=== PATIENT | female | born 1935 | race Caucasian/White ===

== ENCOUNTER → 2023-08-31 08:29 | Outpatient (REF) | payer MEDICARE, OTHER, SELFPAY | LOC: RCS 08:29 | PROVIDERS: ATTENDING PHYSICIAN Internal Medicine Cardiovascular Disease; FAMILY PHYSICIAN Internal Medicine | DX: I48.0 Paroxysmal atrial fibrillation (principal); I10 Essential (primary) hypertension; Z86.79 Personal history of other diseases of the circulatory system; I34.0 Nonrheumatic mitral (valve) insufficiency; I45.10 Unspecified right bundle-branch block; R06.02 Shortness of breath | CPT/HCPCS: 71046; 93306 ==

== ENCOUNTER 2023-09-04 18:27 | Inpatient (IN) | payer MEDICARE, OTHER, SELFPAY ==
[2023-09-04] VITALS (7 sets, daily range): BP systolic 117–133; BP diastolic 74–87; BMI 23.3
[2023-09-04 14:46] LABS: % Basophils 0.9 % (0-2); % Eosinophils 0.9 % (0-6); % Immature Granulocytes 0.3 % (0-0.5); % Lymphocytes 17.7 % (20.5-51.1); % Monocytes 9.7 % (1.7-9.3); % Neutrophils 70.5 % (42.2-75.2); Absolute Basophils 0.1 10^3/uL (0-0.2); Absolute Eosinophils 0.1 10^3/uL (0-0.7); Absolute Monocytes 0.6 10^3/uL (0.1-0.6); Absolute Neutrophils 4.1 10^3/uL (1.4-6.5); Hematocrit 36.5 % (37.0-47.0); Mean Corp Hgb Conc. 32.9 g/dL (33.0-37.0); Mean Corpuscular Hgb 29.9 pg (27.0-31.0); Mean Corpuscular Volume 90.8 fL (81.0-99.0); Mean Platelet Volume 10.4 fL (7.4-10.4); Nucleated Red Blood Cells % 0 %; Platelet Count 192 10^3/uL (130-400); Red Blood Cell Count 4.02 10^6/uL (4.20-5.40); Red Cell Dist. Width 15.4 % (11.5-14.5); White Blood Cell Count 5.8 10^3/uL (4.8-10.8)
[2023-09-04 14:55] LABS: INR 2.08; PT 23.3 Sec (11.4-14.6)
[2023-09-04 16:27] LABS: ALT (SGPT) 27 U/L (0-35); AST (SGOT) 34 U/L (14-36); Albumin 3.6 g/dl (3.5-5.0); Alkaline Phosphatase 111 U/L (38-126); Blood Urea Nitrogen 18 mg/dl (7-17); Calcium 8.7 mg/dl (8.4-10.2); Carbon Dioxide 31 mmol/L (22-30); Chloride 104 mmol/L (98-107); Glucose 120 mg/dl (70-99); Magnesium 1.7 mg/dl (1.6-2.3); Potassium 3.3 mmol/L (3.5-5.1); Sodium 138 mmol/L (135-145); Total Bilirubin 0.8 mg/dl (0.2-1.3); Total Protein 6.2 g/dl (6.3-8.2); eGFR > 60.00
[2023-09-04 16:29] LABS: NT-proBNP 2280 pg/ml; Troponin I 0.015 ng/ml
--- NOTE | 2023-09-04 16:36 | ED.GENMED ---
History of Present Illness
General
Chief Complaint: Swelling
Source: patient and family
Time Seen by Provider: 09/04/23 13:42
Travel History
Have you had any contact with someone who has COVID-19?: No
Do you have any symptoms of coronavirus? Fever > 100 degrees, chills, cough, shortness of breath, sore throat, loss of taste or smell, muscle aches, or headache?: No
History of Present Illness
History of Present Illness:
88-year-old female with history of A-fib, COPD, CHF was sent by cardiology for suspected congestive heart failure. She went back in A-fib recently and has been in it persistently. She was taken off her amiodarone and put on metoprolol. She did
just start Lasix yesterday. Patient states her shortness of breath with exertion has progressed and she is extremely short of breath with just 3-4 steps. No fevers. No chest pain.
Past History
Past History
ED Past Medical History: Arrthythmia (Atrial fibrillation), CAD, Cancer, CHF, COPD, HTN and Hypercholesterolemia
ED Past Surgical History: Cardiac and Gynecological
Social History
Tobacco: Non-smoker
Living: with family
Employment: Retired
Phy Exam
Physical Exam
Physical Exam:
CONSTITUTIONAL Patient alert and oriented to person, place and time. Well-appearing. Vital signs reviewed.
HEAD atraumatic, normocephalic.
EYES eyelids normal to inspection, Pupils equally round and reactive to light, Extraocular muscles intact, Conjunctiva normal, Sclera normal.
NECK normal range of motion, Trachea midline, no jugular venous distention.
RESPIRATORY CHEST No respiratory distress noted, Chest expansion equal, diminished at bilateral bases
CARDIOVASCULAR irregularly irregular.
ABDOMEN abdomen nontender, Bowel sounds normal. No distention.
BACK normal inspection, no obvious deformities
UPPER EXTREMITY range of motion normal, Motor strength normal, no cyanosis, no edema.
LOWER EXTREMITY range of motion normal, Motor strength normal, no cyanosis, bilateral edema.
NEURO Speech normal, No focal motor deficits, [place] coma scale 15, Memory normal, Cranial Nerves intact to screening exam.
SKIN skin warm, dry, and normal in color.
Scores
Heart Failure Risk
Heart Failure Risk Score: Yes
History of Stroke or TIA: No
History of intubation for respiratory distress: No
Heart rate on ED arrival >/= 110: No
SaO2 <90% on arrival on room air: No
HR >/=110 during 3min walk test (or too ill to perform test): Yes
ECG has acute ischemic changes: No
Urea >/=12mmol/L (BUN 33.6mg/dL): No
Serum CO2>/=35mmol/L: No
Troponin I or T elevated to AL Level (0.4mg/dL): No
NT-proBNP >/=5,000ng/L (5,000pg/ml): No
HF Risk Score: 2
Admission Status: MEDIUM RISK 9.2% Consider observation or discharge to home with homecare & f/u visit to PCP/Paper Machine Operator, or SNF for treatment
Course
Orders/Labs/Results
Orders:
Orders
09/04/23 12:43
Electrocardiogram (*1) Urgent
Reason for Study: Shortness of Breath
EKG- Treatment ONCE
09/04/23 13:43
CR Chest - 2 Views Urgent
Comment:
Reason For Exam: leg swelling
09/04/23 14:40
Complete Blood Count/With Diff Urgent
PT/INR [Prothrombin Time] Urgent
09/04/23 Dinner
Cholesterol Lowering
At Your Request: Limited Participation
Fluid Restriction: 1440 mL/day (48 oz)
Cholesterol Lowering: Sodium, 2 Gram
09/04/23 15:59
Comprehensive Metabolic Panel Urgent
Magnesium Urgent
NT-proBNP Urgent
Troponin I Urgent
Comment: BNP
09/04/23 16:35
Furosemide [Lasix] 40 mg IV NOW STA
Potassium Chloride 10% Elixir [KCl Elixir] 40 meq PO NOW STA
09/04/23 17:34
[facility] CONSULT Routine
Consulting Provider: Mason Fuentes
Was physician already notified: Yes
Reason for Consult/Procedure: large left plueral effusion
Acknowledgement that appropriate orders are entered: Yes
09/04/23 17:56
Admit/Transfer Patient As Directed
Co-Sign Provider:
Level of Care: Inpatient admission
Assign to:: Telemetry
Physician / Group: velma bell
Diagnosis: large left sided plueral effusion , hypokalemia
Reason for Telemetry: Arrhythmia
Date to Stop Telemetry: 09/07/23
Time to Stop Telemetry: 11:00
Reason for Hospitalization: large left sided plueral effusion , hypokalemia
Expected length of stay greater than two midnights?: Yes
ELOS- Estimated Length of Stay in days: 4
I certify the patient meets the requirements for IP care: Yes
09/04/23 17:57
Code Status As Directed
Resuscitation Status: Do not resuscitate
Reached after discussion with pt or family/Healthcare POA: Yes
Based on pt advanced directive or healthcare POA form: Yes
Decision communicated with: per pt with daugther present
09/04/23 17:58
DNR Bracelet Application ONCE
09/04/23 18:08
CARDIOLOGY CONSULT Routine
Consulting Provider: Jose Stallworth
Was physician already notified: Yes
Reason for consult: lg left plueral eff , parox afib stopped amiodarone
09/04/23 19:19
Acetaminophen [Tylenol] 650 mg PO Q4HPRN PRN
Bisacodyl [Dulcolax] 10 mg RECTAL [id number] PRN
Docusate W/Senna [Senokot-S] 1 tablet PO BIDPRN PRN
Polyethylene Glycol Powder [Miralax] 17 grams PO DAILYPRN PRN
09/04/23 19:19
VTE Contraindication Routine
VTE Mechanical Device Contraindication: Medical Contraindication
Pharmocologic Contraindication: Medical Contraindication
Comment: pt o eliquis
Acid Fast Culture & Smear Routine
NELI Source: Pleural Fluid
Specimen Description:
Comment: post procedure
Body Fluid Amylase Routine
Fluid Source: Pleural
Body Fluid Cell Count Routine
What is the Body Fluid: pleural fluid
Comment: post procedure
Body Fluid Glucose Routine
Fluid Source: Pleural
Body Fluid LDH Routine
Fluid Source: Pleural
Body Fluid Protein Routine
Fluid Source: Pleural
Body Fluid Triglycerides Routine
Fluid Source: Pleural
Body Fluid pH Routine
Fluid Source: Pleural
Fluid Culture with Gram Stain Routine
NELI Source: Pleural Fluid
Specimen Description:
Comment: post procedure
Fungus Culture Routine
NELI Source: Pleural Fluid
Specimen Description:
Fungus Smear Routine
NELI Source: Pleural Fluid
Specimen Description:
Gram Stain Routine
NELI Source: Pleural Fluid
Specimen Description:
Comment: POST PROCEDURE
Activity As Directed
Activity Level: With Assistance
Comment: uses rollator at baseline
Intake/ Output As Directed
Frequency: Per unit guidelines
Vital Signs As Directed
Frequency: Per unit guidelines
Weight As Directed
Frequency: Daily
[facility] Cytology Routine
Source: Pleural Fluid, Left
Clinical Impression: pleural effusion hx breast ca 2009
Pulse Ox/spot Check [RESP] Routine
Quantity: 1
Ot Eval And Treat Routine
Pt Eval And Treat Routine
Treatment: uses rollator at baseline
Activity Level: With Assistance
09/04/23 20:00
Apixaban [Eliquis] 5 mg PO BID
Calcium Carbonate/Vitamin D3 [Oscal 500 + D] 500 mg PO BID
Potassium Chloride [KCl] 10 meq PO BID
09/04/23 22:00
Atorvastatin [Lipitor] 40 mg PO HS
Cholecalciferol (Vitamin D3) [VITAMIN D3 (cholecalciferol)] 25 mcg PO HS
09/05/23 06:00
Basic Metabolic Panel IN AM
Complete Blood Count/With Diff IN AM
09/05/23 08:00
Furosemide [Lasix] 40 mg IV DAILY
Lisinopril [Zestril] 20 mg PO DAILY
Metoprolol Xl [Toprol Xl] 25 mg PO DAILY
Multivitamin [Theragran] 1 tablet PO DAILY
Pantoprazole [Protonix] 40 mg PO DAILY
Tiotropium [place] 2.5 Mcg [Spiriva Respimat 2.5 Mcg] 2 puff INH R DAILY
09/06/23 06:00
Basic Metabolic Panel IN AM
Complete Blood Count/With Diff IN AM
09/07/23 06:00
Basic Metabolic Panel IN AM
Complete Blood Count/With Diff IN AM
09/07/23 11:00
DC Protocol for Telemetry ONCE
Abnormal Lab Results
09/04/23 09/04/23
14:40 15:59
RBC 4.02 L 10^6/uL
(4.20-5.40)
Hct 36.5 L %
(37.0-47.0)
MCHC 32.9 L g/dL
(33.0-37.0)
RDW 15.4 H %
(11.5-14.5)
Absolute Lymphs (auto) 1.0 L 10^3/uL
(1.2-3.4)
Lymphocytes % 17.7 L %
(20.5-51.1)
Monocytes % 9.7 H %
(1.7-9.3)
PT 23.3 H Sec
(11.4-14.6)
Potassium 3.3 L mmol/L
(3.5-5.1)
Carbon Dioxide 31 H mmol/L
(22-30)
BUN 18 H mg/dl
(7-17)
Glucose 120 H mg/dl
(70-99)
Total Protein 6.2 L g/dl
(6.3-8.2)
09/04/23 14:40
09/04/23 15:59
Vital Signs
Initial and Last Documented VS:
Initial Vital Signs
Temp Pulse Resp BP Pulse Ox
98.2 F 88 18 123/81 99
09/04/23 12:41 09/04/23 12:41 09/04/23 12:41 09/04/23 12:41 09/04/23 12:41
Last Documented Vital Signs
Temp Pulse Resp BP Pulse Ox
98.2 F 102 18 131/75 96
09/04/23 19:28 09/04/23 19:28 09/04/23 19:28 09/04/23 19:28 09/04/23 19:28
MDM/Problems Addressed
MDM/Problems Addressed:
Large acute pleural effusion, congestive heart failure, lower extremity edema, hypokalemia
*Radiology
Radiology exam reviewed: preliminary read by ED provider (Effusion)
*Pulse Oximetry
Patient hypoxic: no
*EKG
Interpreted by ED Provider?: Yes
Interpretation: abnormal
Rate: normal
Rhythm: a-fib
QRS Pattern: right bundle branch block
Ischemia: non-specific ST changes
*Air Conditioning Service Technician Interpretation
Rate: normal
Interpretation: abnormal
Rhythm: a-fib
*Critical Care Note
Total Time (30-74mins, 75-104mins- exclusive of procedures): 30 minutes
Data Reviewed
Source: patient
Further Testing Considered But Not Given:
Considered PE study but suspect effusion and CHF as etiology.
ED Attending Note
-
Portions of this chart may have been created with voice recognition software.� Occasional wrong word or��sound alike� substitutions may have occurred due to the inherent limitations of voice recognition software.
Discharge Plan
Departure
Patient Disposition: Admit
Date of Disposition: 09/04/23
Time of Disposition: 16:36
Admit to: Telemetry
Presentation/result/management discussed w/ accepting MD/DO: Hospitalist
Discharge Problem:
Congestive heart failure (CHF), Pleural effusion, Hypokalemia
Interventions
Interventions:
*Risk Screen - Suicide Last Done: 09/04/23 12:41
*General Assessment Last Done: 09/04/23 12:41
*Neglect/Abuse Screening Last Done: 09/04/23 12:41
ED- Fall Risk Assessment Last Done: 09/04/23 19:13
*ED COVID-19 Vaccine History Last Done: 09/04/23 12:41
*Nursing Disposition Last Done: 09/04/23 19:13
ED- Cardiac Assessment Last Done: 09/04/23 14:05
ED- Pulmonary Assessment Last Done: 09/04/23 14:05
ED-Skin Assessment Last Done: 09/04/23 14:05
Discharge Date and Time
Discharge Date/Time: 09/04/23 19:15
[2023-09-04] MEDS: LASIX 40 MG IV (17:13)
[2023-09-04] MEDS: KCL ELIXIR 40 MEQ PO (17:13)
--- NOTE | 2023-09-04 17:41 | HPS.HSE ---
Addendum entered and electronically signed by Hardeep Ernst MD 09/04/23 18:27:
SOB x 2 weeks
Hx of left sided breast cancer in 2009, s/p mastectomy, XRT and chemo. As per pt and dgt, DEWAYNE
Pt seen independently and agree with TRUCK CATERER
Lungs decreased BS left base
CV reg with freq extrasystole
Ext trace LE edema, left arm edema more pronounced (apparently is chronic)
Imp:left sided pleural effusion of unclear etio.
Hx of breast cancer and XRT, raise concern for alternative dx not related to cardiac
P:thoracentesis
pending results, consider consult with pulm
Original Note:
Family Physician
-
Family Physician: Bowen Townsend
Chief Complaint
-
Progressive shortness of breath over the past 2 weeks
History of Present Illness
88-year-old female who lives at home with her daughter who complains of progressive shortness of breath over the past 2 weeks with some leg edema. She saw her diver helper approximately August 12 was in normal sinus rhythm and was advised to stop her
amiodarone. She did however continue her Eliquis. In the ER today she is back in normal sinus rhythm to paroxysmal A-fib. She denies current headache, chest pain, palpitations, cough, fever, chills, abdominal pain, nausea, vomiting, diarrhea,
black or bloody stools, urinary symptoms. She is chronic ambulatory dysfunction uses a rollator. She has history of mastectomy left-sided secondary to breast cancer 2009 requiring radiation and chemo and has chronic lymphadenopathy in that arm.
She was a former smoker 30 years 1 pack a day quit approximately 30 years ago, CAD/CABG times 07/1997, HTN, HLD, CHF diastolic, cardiac murmur.
Medical History
Past Medical History
Past Medical History: Reports Other
Additional Past Medical History:
Left-sided breast cancer requiring mastectomy, radiation therapy 2009
Chronic left arm lymphedema secondary to mastectomy
COPD
HTN
HLD
Chronic CHF�diastolic
Former smoker 30-year 1 pack a day quit approximate 30 years ago
5 para 5
Past Surgical History: Reports Other
Additional Past Surgical History:
Left-sided breast cancer requiring mastectomy, radiation therapy 2009
CABG x 3 vessel 1997
Cataract extraction bilateral
Social History
Tobacco: Former Smoker (30 pack a day quit 30 years ago)
Alcohol: None
Drug: None
Personal:
Living: With Family (Daughter)
Employment: Retired
Family History
Family History: Not pertinent
Allergies / Home Medications
Allergies reflects when Allergies were last updated in [facility].
Home Medications with original date entered in [facility]
Allergy/Medication List:
Allergies
Allergy/AdvReac Type Severity Reaction Status Date / Time
iron [Iron] Allergy Rash Verified 03/26/22 20:24
Home Medications
amlodipine 5 mg tablet 5 mg PO HS 09/04/23
apixaban 5 mg tablet (Eliquis) 5 mg PO BID 09/04/23
atorvastatin 40 mg tablet 40 mg PO HS 09/04/23
calcium carbonate 600 mg-vitamin D3 10 mcg (400 unit) tablet (Calcium 600 + D(3)) 1 tab PO BID 09/04/23
cholecalciferol (vitamin D3) 25 mcg (1,000 unit) tablet 25 mcg PO HS 09/04/23
furosemide 20 mg tablet 20 mg PO DAILY 09/04/23
lisinopril 20 mg tablet 20 mg PO DAILY 09/04/23
metoprolol succinate 25 mg tablet,extended release 24 hr 25 mg PO DAILY 09/04/23
multivitamin with minerals-folic acid 0.4 mg tablet (One-A-Day Women's 50 Plus) 1 tab PO DAILY 09/04/23
potassium chloride 10 mEq tablet,extended release 10 meq PO BID 09/04/23
rabeprazole 20 mg tablet,delayed release 20 mg PO DAILY 09/04/23
tiotropium bromide 18 mcg capsule with inhalation device (Spiriva with HandiHaler) 1 cap inhalation R DAILY 09/04/23
Review of Systems
-
History Source: Patient and Family (Daughter at bedside)
A 12 point ROS was completed and negative except as noted: Yes
Constitutional: Reports Fatigue; Denies Fever or Chills
EENT: Denies Sore Throat or Runny Nose
Respiratory: Reports Cough and Trouble Breathing (CHOPRA)
Cardiac: Denies Chest Pain, Diaphoresis, Palpitations or Syncope
Abdomen/GI: Denies Abdominal Pain, Nausea, Vomiting, Diarrhea, Constipated, Bloody Stools, Black Stools or Anorexia
: Denies Dysuria, Frequency, Flank Pain, Incontinence, Difficulty Voiding, Urgency, Bleeding or Dark Urine
Musculoskeletal: Reports Edema (Trace bilateral ankles); Denies Joint Pain
Skin: Denies Itching or Rash
Neurological: Denies Dizzy, Headache or Weakness
Endocrine: Reports No Symptoms
Hematologic/Lymphatic: Reports No Symptoms
Psych: Reports Calm
Physical Exam
Vital Signs
Vital Signs
Temp Pulse Resp BP Pulse Ox
98.2 F 88 28 133/78 94
09/04/23 12:41 09/04/23 17:16 09/04/23 17:16 09/04/23 17:16 09/04/23 17:16
Physical Exam
General: Comfortable and Conversant; No Pain, Fever or Chills
HEENT: NormoCephalic, Anicteric, Moist mucous membranes, PERRLA, [place] Conjunctivae and No Ptosis
Respiratory: Other (Diminished throughout left lung field)
Cardiac: S1/S2, Irregular Rhythm (NSR to paroxysmal A-fib on monitor at bedside), Murmur (2/6 systolic murmur) and Peripheral Edema (Trace bilateral ankles); No Rub or Gallop
GI: Soft, Non Tender, Non Distended, Normal Bowel Sounds and No Hepatosplenomegaly
Rectal: Deferred by Provider
Genito-urinary: Deferred by me
Musculoskeletal: No Clubbing, No Cyanosis and No Edema
Skin: Warm and Dry; No Rash
Neuro: AO x 3, No Motor Deficits, Nonfocal/grossly intact, Cranial Nerves Intact and No Sensory Deficits; No Slurred Speech, Facial Droop or Tremors
Psych: Calm
Laboratory Results
-
09/04/23 14:40
09/04/23 15:59
Laboratory Results
PT 23.3 Sec (11.4-14.6) H 09/04/23 14:40
INR 2.08 09/04/23 14:40
Total Bilirubin 0.8 mg/dl (0.2-1.3) 09/04/23 15:59
AST 34 U/L (14-36) 09/04/23 15:59
ALT 27 U/L (0-35) 09/04/23 15:59
Alkaline Phosphatase 111 U/L (38-126) 09/04/23 15:59
Troponin I 0.015 ng/ml 09/04/23 15:59
Impression/Plan
-
Impression/plan:
Admit to telemetry
Large left-sided pleural effusion likely 2 prior left-sided radiation 2009 from breast cancer/mastectomy
-Consult IR for thoracentesis with fluid analysis
-Monitor pulse ox
-PT/OT/case management consult
#Hx left-sided breast cancer with mastectomy/radiation/chronic left arm lymphedema 2009
-No IVs left side arm
#Hypokalemia likely from diuretic/pleural effusion
K3.3, KCl 40 mEq given in ER
Follow BMP
#Paroxysmal A-fib
-On monitor NSR to paroxysmal A-fib
-Continue Eliquis 5 mg p.o. twice daily
-Amiodarone was stopped approximately August 12 by cardiology due to NSR but patiently currently having episodes of paroxysmal A-fib
-Continue metoprolol
-Consult [facility] cardiology for resumption of possible amiodarone
#COPD�no acute exacerbation
Continue Spiriva
#Chronic CHF
I/O, daily weights
Continue Lasix 20 mg daily, potassium 10 mEq twice daily
2D echo 08/31/2023: EF 50-55%, mild LVH, no wall abnormalities, diastolic function indeterminate, enlarged right ventricle, severely dilated atria ,severe MR,
severe TR pulm arterial pressure 50-55 mm/hg
#Severe MR/severe TR by echo
#HTN�benign
-Continue lisinopril 20 mg daily, metoprolol succinate 25 mg daily, amlodipine 5 mg at bedtime with hold parameters
HLD
-Continue atorvastatin 40 mg at bedtime
#GERD
-Continue Aciphex or equivalent
#Former smoker 30-year 1 pack a day quit 30 years ago
#Chronic ambulatory dysfunction uses rollator at baseline
PT/OT/case management consult
DVT prophylaxis
Continue REGULATOR PIN INSERTER Eliquis
DNR per patient with daughter present at bedside
[2023-09-04] MEDS: KCL 10 MEQ PO (20:10)
[2023-09-04] MEDS: OSCAL 500 + D 500 MG PO (20:10)
[2023-09-04] MEDS: ELIQUIS 5 MG PO (20:10)
--- NOTE | 2023-09-04 20:20 | PTCARENOTE ---
pt admitted to 4E. AAOx3, general weakness. BAD R[place] BAND. Afib w/ BBB in the monitor. +1 Lt arm and BLLE edema. Lung sounds are shallow diminished and fine crackles at the bases. SaO2 94-96% RA. Pt ambulates to the bathroom, occasional stress incontinence.
Pt appears comfortable in bed and call talley within reach.
[2023-09-04] MEDS: LIPITOR 40 MG PO (21:01)
[2023-09-04] MEDS: VITAMIN D3 (cholecalciferol) 25 MCG PO (21:01)
[2023-09-05] VITALS (9 sets, daily range): BP systolic 83–134; BP diastolic 58–87
[2023-09-05 08:31] LABS: % Eosinophils 2.3 % (0-6); % Immature Granulocytes 0.5 % (0-0.5); % Lymphocytes 28.1 % (20.5-51.1); % Monocytes 15.1 % (1.7-9.3); Absolute Basophils 0.1 10^3/uL (0-0.2); Absolute Eosinophils 0.1 10^3/uL (0-0.7); Absolute Lymphocytes 1.8 10^3/uL (1.2-3.4); Absolute Monocytes 0.9 10^3/uL (0.1-0.6); Absolute Neutrophils 3.3 10^3/uL (1.4-6.5); Hematocrit 34.4 % (37.0-47.0); Hemoglobin 11.1 g/dL (12.0-16.0); Mean Corp Hgb Conc. 32.3 g/dL (33.0-37.0); Mean Corpuscular Hgb 29.6 pg (27.0-31.0); Mean Corpuscular Volume 91.7 fL (81.0-99.0); Mean Platelet Volume 10.3 fL (7.4-10.4); Nucleated Red Blood Cells % 0 %; Platelet Count 190 10^3/uL (130-400); Red Blood Cell Count 3.75 10^6/uL (4.20-5.40); Red Cell Dist. Width 15.4 % (11.5-14.5); White Blood Cell Count 6.2 10^3/uL (4.8-10.8)
[2023-09-05] MEDS: SPIRIVA RESPIMAT 2.5 MCG 2 PUFF INH (08:37)
[2023-09-05 08:40] LABS: Blood Urea Nitrogen 19 mg/dl (7-17); Carbon Dioxide 31 mmol/L (22-30); Chloride 104 mmol/L (98-107); Estimated Creatinine Clearance 34 ml/min; Glucose 108 mg/dl (70-99); Potassium 4.7 mmol/L (3.5-5.1); Sodium 140 mmol/L (135-145); eGFR 48.63
[2023-09-05] MEDS: LASIX 40 MG IV (10:02)
[2023-09-05] MEDS: THERAGRAN 1 TABLET PO (10:02)
[2023-09-05] MEDS: FLUSH (NSS) 2 FLUSH IV (10:02)
[2023-09-05] MEDS: ELIQUIS 5 MG PO ×2 (10:03→21:00)
[2023-09-05] MEDS: ZESTRIL 20 MG PO (10:03)
[2023-09-05] MEDS: OSCAL 500 + D 500 MG PO ×2 (10:03→21:00)
[2023-09-05] MEDS: TOPROL XL 25 MG PO (10:03)
[2023-09-05] MEDS: PROTONIX 40 MG PO (10:03)
[2023-09-05] MEDS: KCL 10 MEQ PO ×2 (10:03→21:00)
--- NOTE | 2023-09-05 11:41 | CON.CAR ---
Addendum entered and electronically signed by Mason Kelly MD 09/05/23 12:52:
88-year-old woman admitted with HFpEF in the setting of persistent atrial fibrillation with severe mitral regurgitation.She presented for routine follow-up August 09 and was in recurrent atrial fibrillation at that time. She was largely
asymptomatic. We discussed switching to a strategy of rate control versus rhythm control with cardioversion. Eventually, she elected for rate control and amiodarone was discontinued. She now presents with increasing edema shortness of breath and
weight gain and is found to be in atrial fibrillation. Previously had been considered for MitraClip but mitral regurgitation had improved. She was felt to be technically poor candidate for MitraClip remotely.
Allergies are to iron
Outpatient medications amlodipine 5 mg at bedtime, apixaban 5 mg twice daily, atorvastatin 40 mg a day, furosemide 20 mg daily, metoprolol ER 25 mg a day which was new, potassium 10 mEq twice daily, rabeprazole 20 mg a day, Spiriva
PMH: CAD/history of CABG, PAF on amiodarone, now persistent, hypertension, inferolateral myocardial infarction 1997, HFpEF, mild to moderate MR by echo 2021, 4.4 cm aneurysm of the abdominal aorta, hypercholesterolemia type 2 diabetes right bundle
branch block, COPD, left breast cancer treated with radiation and chemo paralyzed hemidiaphragm
PSH: Left mastectomy, CABG
FH: Noncontributory
SH: Ex-smoker, no alcohol, , lives with daughter and son-in-law who is Don Nisreen
ROS negative except as above
134/73, pulse 99, respiratory rate 18, afebrile, intake and output -0.6 L, weight is 65.5 kg intake and output incomplete, no acute distress, head neck exam unremarkable, diminished breath sounds left base, irregular rate and rhythm with MR murmur,
abdomen benign, extremities with 2+ edema, neuro nonfocal, pulses palpable
Chest x-ray: Pleural effusion left greater than right
ECG atrial fibrillation right bundle branch block nonspecific ST and T wave changes, cannot exclude lateral [place] hemoglobin 11.1, platelets 190, BUN and creatinine 19 and 1.1, potassium 4.7, proBNP 2280, troponin 0.015
Echo 08/31/1943 mild LVH, EF 50-55%, dilated RV, severely dilated atria, MAC, severe mitral regurgitation, trace aortic regurgitation with aortic sclerosis, severe tricuspid regurgitation, pulmonary artery systolic pressure 50-55 mmHg
Impression:
Persistent atrial fibrillation
Acute on chronic HFpEF
Severe mitral regurgitation
Severe tricuspid regurgitation with moderate pulm hypertension
CAD/history of CABG 1997
Abdominal aortic aneurysm 4.4 cm 2021
Hypercholesterolemia
Hypertension
Type 2 diabetes
COPD
Right bundle branch block
History of left breast cancer treated with mastectomy, chemoradiation
Paralyzed left hemidiaphragm
Plan:
She presents with persistent atrial fibrillation and decompensated heart failure with severe MR and preserved systolic LV function. There is right heart enlargement and severe tricuspid regurgitation with pulmonary hypertension.
This is after switching from a strategy of rhythm control on amiodarone to rate control when she had breakthrough A-fib on amiodarone.
Proceed with thoracentesis as planned. Await chemistries and cytology, though presumably fluid is transudative despite the fact that it is predominantly left-sided.
Will need to optimize GDMT for HFpEF. In the absence of history of UTIs we will start an SGLT2 antagonist.
Furosemide was recently started - we will need to diurese with IV furosemide and convert to oral.
Since she has done poorly in A-fib, would restart amiodarone with intent to proceed with cardioversion probably on September 06. As outpatient will reassess tomorrow and determine if we need to reevaluate for MitraClip
Original Note:
Consultation
Consultation Request
Date/Time Consultation Requested: 09/04/23 at 1808
Date/Time Consultation Performed: 09/05/23 at 1112
Requesting Provider: Dr. Ernst
Performing Provider: Dr. CHARLA Kelly
Reason for Consultation: CHF, Afib
Medical History
-
History of Present Illness:
Patient came to [facility] yesterday with increased SOB and was admitted with acute HF so cardiology has been consulted. Patient lives with her daughter and son in law, her son in law is Dr. Bowen Townsend. Patient has a h/o CABG in 1997. Then in about
2018 she had CV and amiodarone loading for Afib. She had an episode of orthostasis and syncope once she was discharged to home in 2019. Since then she was doing well on Eliquis and amiodarone 100 mg daily. Then at her Dr. Kelly office visit 08/08/23
she was noted to be in Afib, but denied palpitations, chest pain or SOB. Dr. Kelly and patient and her daughter discussed options of rate control vs rhythm control. Patient and her family took some time to think about their options and decided on
rate control so her amiodarone was stopped and she was started on Toprol XL 25 mg daily. Patient seemed to be doing well until about 2 weeks ago when she started with CHOPRA and LE edema. No orthopnea or PND. Patient was started on Lasix 20 mg PO dialy
by her PCP, but with ongoing CHOPRA she was brought to [facility] last night. She reports symptomatic improvement with Lasix 40 mg IV daily.
PMH:
Severe MR/TR by echo 08/31/23
Paroxysmal Afib
s/p CV and addition of amiodarone approx 2018
Chronic amiodarone therapy, just stopped at office visit 08/08/23
Chronic Eliquis OAC
CAD s/p CABG with AZAR to LAD, SCG to PDA, SVG to OM, SVG to distal OM and DVG to Diag 1997
HTN
h/o orthostasis and syncope 2018
Hyperlipidemia
RBBB
DM 2
Paralyzed left hemidiaphragm
Past Medical History
Past Medical History: Other (in HPI)
Past Surgical History: Cardiac (CABG 1997) and Gynecological (left mastectomy)
Social History
Tobacco: Former Smoker
Alcohol: None
Living: With Family (she lives with her daughter and son in law)
Family History
Family History: CAD
Allergies / Home Medications
Allergy/AdvReac Type Severity Reaction Status Date / Time
iron [Iron] Allergy Rash Verified 03/26/22 20:24
�Medication �Instructions �Recorded �Confirmed �Type
amlodipine 5 mg tablet 5 mg PO HS 09/04/23 09/04/23 History
apixaban 5 mg tablet (Eliquis) 5 mg PO BID 09/04/23 09/04/23 History
atorvastatin 40 mg tablet 40 mg PO HS 09/04/23 09/04/23 History
calcium carbonate 600 mg-vitamin 1 tab PO BID 09/04/23 09/04/23 History
D3 10 mcg (400 unit) tablet
(Calcium 600 + D(3))
cholecalciferol (vitamin D3) 25 25 mcg PO HS 09/04/23 09/04/23 History
mcg (1,000 unit) tablet
furosemide 20 mg tablet 20 mg PO DAILY 09/04/23 09/04/23 History
lisinopril 20 mg tablet 20 mg PO DAILY 09/04/23 09/04/23 History
metoprolol succinate 25 mg 25 mg PO DAILY 09/04/23 09/04/23 History
tablet,extended release 24 hr
multivitamin with minerals-folic 1 tab PO DAILY 09/04/23 09/04/23 History
acid 0.4 mg tablet (One-A-Day
Women's 50 Plus)
potassium chloride 10 mEq 10 meq PO BID 09/04/23 09/04/23 History
tablet,extended release
rabeprazole 20 mg tablet,delayed 20 mg PO DAILY 09/04/23 09/04/23 History
release
tiotropium bromide 18 mcg capsule 1 cap inhalation R DAILY 09/04/23 09/04/23 History
with inhalation device (Spiriva
with HandiHaler)
Review of Systems
-
History Source: Patient and Family (daughter, Kamini, by phone)
All other systems: Negative unless noted
Physical Exam
Vital Signs
Temp Pulse Resp BP Pulse Ox
98.3 F 99 18 134/73 93
09/05/23 08:22 09/05/23 08:22 09/05/23 08:22 09/05/23 10:03 09/05/23 08:22
GEN: NAD. AAOx3
HEENT: EOMI, MMM, wearing glasses
LUNGS: Decreased BS left worse than right base. No wheeze
CV: Reg, S1/S2, 1/6 basal systolic murmur
ABD: soft, BS+, NT/ND
EXT: +1 B/L LE edema. No clubbing, cyanosis or lesions B/L
NEURO: Gross non-focal
SKIN: Warm, dry and pink. No rash
Lab Results
09/05/23 07:59
09/05/23 07:59
Troponin I 0.015 ng/ml 09/04/23 15:59
Uic-S-Zzubmspjstx Pept 2280 pg/ml 09/04/23 15:59
Impression / Plan
-
PCP: Dr. Townsend
Cardiology: Dr. CHARLA Kelly
Impression:
Acute HFpEF
Severe MR/TR
Moderate left and small right pleural effusion
Paroxysmal Afib
s/p CV and addition of amiodarone approx 2018
Chronic amiodarone therapy, just stopped at office visit 08/08/23
Chronic Eliquis OAC
CAD s/p CABG with AZAR to LAD, SCG to PDA, SVG to OM, SVG to distal OM and DVG to Diag 1997
HTN
h/o orthostasis and syncope 2018
Hyperlipidemia
RBBB
DM 2
Paralyzed left hemidiaphragm
Echo 08/31/23: EF 50-55%, mild conc LVH, enlarged RV size, sev MR, aortic sclerosis without stenosis, sev TR with PAP 50-55 mmHg, no pericardial effusion
Plan:
-Patient came to [facility] yesterday with increased SOB and was admitted with acute HF so cardiology has been consulted. Patient lives with her daughter and son in law, her son in law is Dr. Bowen Townsend. Patient has a h/o CABG in 1997. Then in about
2018 she had CV and amiodarone loading for Afib. She had an episode of orthostasis and syncope once she was discharged to home in 2019. Since then she was doing well on Eliquis and amiodarone 100 mg daily. Then at her Dr. Kelly office visit 08/08/23
she was noted to be in Afib, but denied palpitations, chest pain or SOB. Dr. Kelly and patient and her daughter discussed options of rate control vs rhythm control. Patient and her family took some time to think about their options and decided on
rate control so her amiodarone was stopped and she was started on Toprol XL 25 mg daily. Patient seemed to be doing well until about 2 weeks ago when she started with CHOPRA and LE edema. No orthopnea or PND. Patient was started on Lasix 20 mg PO dialy
by her PCP, but with ongoing CHOPRA she was [facility]. She reports symptomatic improvement with Lasix 40 mg IV daily.
-pro-BNP 2280 and evidence of pleural effusion on CXR. Patient diuresing well with Lasix 40 mg IV daily. Patient was taking Lasix 20 mg PO daily for only a few days just prior to this admission. Not sure that patient will need a daily diuretic if
she is cardioverted to SR. She also had orthostasis and syncope in the past.
-Cre and electrolytes stable with diuresis
-HRs controlled in Afib, but with acute HF will attempt rhythm control by restarting amiodarone 200 mg TID and planning on a CV once she has diuresed.
-Echo 08/31/23 showed that MR was now severe. Talked with patient's daughter that a repeat echo while patient is in SR and euvolemic should be attempted and that MR might look better. Historically patient was told that she was not a candidate for a
MitraClip and patient's daughter also feels that patient has not done well with any attempted surgery in the recent past.
-ECG reviewed by me shows Afib with known cRBBB.
--- NOTE | 2023-09-05 11:51 | CM ---
Addendum entered by Indiana Strickland 09/05/23 13:17:
CM received consult for cost of Farxiga 10mg once daily- $76.00 for 30 day supply through [facility], Jardiance 10mg once daily- $43.00 30 day supply through [facility], TT sent to Doctor with update.
Original Note:
Patient seen bedside, initial assessment completed. Patient reports she resides with her daughter in a two story home, no steps to enter. Patient reports she has two rollators, one inside and one outside, a walker in her bedroom, and wheelchair in
needed. Patient denies VN or SNF history. Patient confirms PCP Bowen Townsend, pharmacy [facility], confirms prescription coverage through [facility]. Patient denies food insecurities at home. CM will continue to follow for discharge
planning needs, watch for PT/OT evaluations for needs.
Plan; home no needs vs VN pending PT/OT evals.
--- NOTE | 2023-09-05 13:24 | W.PN.HOSP.TC ---
Today's Communication/Plan
-
thoracentesis
await pleural effusion studies including cytology
Assessment / Plan
Assessment / Plan
Large left-sided pleural effusion likely 2 prior left-sided radiation 2009 from breast cancer/mastectomy in conjunction with HFpEF
-Consult IR for thoracentesis with fluid analysis
will consult Pulm, discussed with Dr. Bland
-Monitor pulse ox
-PT/OT/case management consult
#Hx left-sided breast cancer with mastectomy/radiation/chemotherapy chronic left arm lymphedema 2009
-No IVs left side arm
As per pt and dgt, No evidence of recurrent disease
#Hypokalemia likely from diuretic/pleural effusion
K3.3, KCl 40 mEq given in ER
Follow BMP
#Paroxysmal A-fib
-On monitor NSR to paroxysmal A-fib
-Continue Eliquis 5 mg p.o. twice daily
-Amiodarone was stopped approximately August 12 by cardiology due to NSR but patiently currently having episodes of paroxysmal A-fib
-Continue metoprolol
-Consult [facility] cardiology for resumption of possible amiodarone
#COPD�no acute exacerbation
Continue Spiriva
#Chronic CHF
I/O, daily weights
Continue Lasix 40 mg IV daily, potassium 10 mEq twice daily
2D echo 08/31/2023: EF 50-55%, mild LVH, no wall abnormalities, diastolic function indeterminate, enlarged right ventricle, severely dilated atria ,severe MR,
severe TR pulm arterial pressure 50-55 mm/hg
#Severe MR/severe TR by echo
#HTN�benign
-Continue lisinopril 20 mg daily, metoprolol succinate 25 mg daily, amlodipine 5 mg at bedtime with hold parameters
HLD
-Continue atorvastatin 40 mg at bedtime
Hypokalemia
better3.3-->4.7
#GERD
-Continue Aciphex or equivalent
#Former smoker 30-year 1 pack a day quit 30 years ago
#Chronic ambulatory dysfunction uses rollator at baseline
PT/OT/case management consult
DVT prophylaxis
Continue GYPSUM BLOCK SETTER Eliquis
DNR per patient with daughter present at bedside
Anticipated Discharge: > 48 hours
Subjective/Interval History
-
Date of Service: September 05, 2023
Generally comfortable at rest
Objective Data
-
Labs:
Laboratory Results
09/05/23
07:59
WBC 6.2
Hgb 11.1 L
Hct 34.4 L
Plt Count 190
Sodium 140
Potassium 4.7 D
Chloride 104
Carbon Dioxide 31 H
BUN 19 H
Creatinine 1.1 H
Glucose 108 H
Calcium 9.0
Vital Signs:
Vital Signs
Temp Pulse Resp BP Pulse Ox
98.4 F 83 16 117/71 95
09/05/23 11:40 09/05/23 13:11 09/05/23 13:11 09/05/23 13:11 09/05/23 12:48
I&O
09/04/23 09/05/23 09/06/23
06:59 06:59 06:59
Intake Total 408 / 408
Output Total 900 / 900 100 / 100
Balance -492 / -492 -100 / -100
Review of Systems
-
History Source: Patient, Physician (reviewed with Dr. Bland) and Coordinated Provider
Constitutional: Denies Fever
EENT: Reports No Symptoms Reported
Respiratory: Reports Trouble Breathing
Cardiac: Denies Chest Pain
Abdomen/GI: Reports No Symptoms
Genitourinary: Reports No Symptoms
Physical Exam
-
General: Well Developed, Well Nourished and No Apparent Distress
HEENT: Normocephalic, Atraumatic and Moist Mucous Membranes
Respiratory: Decreased Breath Sounds (left lower 1/2 of lung field)
Cardiac: Regular Rhythm and S1/S2
GI: Soft, Nontender and Nondistended
Musculoskeletal: No Clubbing, No Cyanosis, Edema, Left Upper Extrem, Edema, Right Lower Extrem (trace) and Edema, Left Lower Extrem (trace)
Neuro: Awake, Alert and Oriented
[2023-09-05 13:27] LABS: Body Fluid Mononuclear 93.8 %; Body Fluid Polymorphonuclear 6.2 %; Body Fluid WBC 530 /CUMM
--- NOTE | 2023-09-05 13:32 | PTCARENOTE ---
received post left thoracentesis- assisted to bed, vital signs noted. patient in no resp distress, denied pain. bandaid intact to left mid chest. plan of care on going.
[2023-09-05 13:34] LABS: Body Fluid pH 7.56
[2023-09-05 13:55] LABS: Body Fluid Amylase < 30 U/L; Body Fluid Glucose 141 mg/dl; Body Fluid LDH < 90 U/L; Body Fluid Protein < 2.0 g/dl; Body Fluid Triglycerides < 30 mg/dl
[2023-09-05 14:37] LABS: Body Fluid Second Tech CMB
--- NOTE | 2023-09-05 16:12 | CON.PUL ---
Consultation
Consultation Request
Date/Time Consultation Requested: 09/04
Date/Time Consultation Performed: 09/04
Reason for Consultation: Abnormal imaging
Medical History
-
History of Present Illness:
History obtained from the patient, reviewing inpatient and outpatient medical records. Patient is a pleasant 88-year-old female with history of breast cancer diagnosed in 2006 status post left mastectomy/radiation/chemotherapy complicated by left
upper extremity lymphedema. Patient describes increased shortness of breath over the past 2 weeks. Of note she does have history of atrial fibrillation and was seen by cardiology 3 weeks prior to admission. Amiodarone therapy was stopped.
Throughout this she denies cough, chest pain, chest tightness, lightheadedness, dizziness, palpitations. She admits to some mild lower extremity edema. She denies PND, orthopnea, edema. Upon arrival to [facility], afebrile, pulse 88,
breathing at 18, blood pressure 123/81, 99%. Chest x-ray revealed large left pleural effusion. EKG with atrial fibrillation, right bundle branch block. We are asked to comment on her imaging
In the interim, she has undergone left thoracentesis, 500 cc drained. She feels much improved postthoracentesis. She denies any prior history of thoracentesis
She typically walks with a walker, denies any falls or trauma
.
PMH: Coronary disease with bypass surgery 1997, hypertension, hyperlipidemia, history of heart failure, breast cancer 2006 with left mastectomy/radiation/chemotherapy complicated by lymphedema. Infrarenal abdominal aortic aneurysm 4.4 cm per
imaging. Valvular disease with pulm hypertension
Past Medical History
Past Medical History: None (See above)
Past Surgical History: None (See above)
Social History
Tobacco: Former Smoker (30 pack years, quit 1989)
Alcohol: None
Drug: None
Personal:
Living: With Family (Lives with daughter)
Employment: Retired ([employer])
Family History
Family History: Other (3 brothers history of coronary disease. 3 sisters alive. Family history negative for lung cancer, blood clots)
Allergies / Home Medications
Allergies
Allergy/AdvReac Type Severity Reaction Status Date / Time
iron [Iron] Allergy Rash Verified 03/26/22 20:24
Home Medications
�Medication �Instructions �Recorded �Confirmed �Last Taken �Type
amlodipine 5 mg tablet 5 mg PO HS 09/04/23 09/04/23 09/03/23 History
apixaban 5 mg tablet (Eliquis) 5 mg PO BID 09/04/23 09/04/23 09/04/23 History
atorvastatin 40 mg tablet 40 mg PO HS 09/04/23 09/04/23 09/03/23 History
calcium carbonate 600 mg-vitamin 1 tab PO BID 09/04/23 09/04/23 09/04/23 History
D3 10 mcg (400 unit) tablet
(Calcium 600 + D(3))
cholecalciferol (vitamin D3) 25 25 mcg PO HS 09/04/23 09/04/23 09/03/23 History
mcg (1,000 unit) tablet
furosemide 20 mg tablet 20 mg PO DAILY 09/04/23 09/04/23 09/04/23 History
lisinopril 20 mg tablet 20 mg PO DAILY 09/04/23 09/04/23 09/04/23 History
metoprolol succinate 25 mg 25 mg PO DAILY 09/04/23 09/04/23 09/04/23 History
tablet,extended release 24 hr
multivitamin with minerals-folic 1 tab PO DAILY 09/04/23 09/04/23 09/04/23 History
acid 0.4 mg tablet (One-A-Day
Women's 50 Plus)
potassium chloride 10 mEq 10 meq PO BID 09/04/23 09/04/23 09/04/23 History
tablet,extended release
rabeprazole 20 mg tablet,delayed 20 mg PO DAILY 09/04/23 09/04/23 09/04/23 History
release
tiotropium bromide 18 mcg capsule 1 cap inhalation R DAILY 09/04/23 09/04/23 09/04/23 History
with inhalation device (Spiriva
with HandiHaler)
Review of Systems
-
All other systems: Negative unless noted
Vitals / Labs / Diagnostic Testing
Vital Signs
Temp Pulse Resp BP Pulse Ox
97.6 F 88 18 114/70 96
09/05/23 15:23 09/05/23 15:23 09/05/23 15:23 09/05/23 15:23 09/05/23 15:23
Lab Data
09/05/23 07:59
09/05/23 07:59
Diagnostic Testing:
Physical Exam
-
HEENT: Normocephalic, Anicteric and Other (Cachectic)
Cardiovascular: S1/S2, Regular Rhythm, Murmur (2/6 systolic murmur), Rub (n) and Peripheral Edema (tr)
Respiratory: Wheeze (n), Rales (n), Rhonchi (n), Non-Labored Respirations and Other (Decreased breath sounds)
GI: Soft, Non Distended and Non Tender
Neurology: Awake, Alert, Oriented and No Motor Deficits (Able to sit up without assistance)
Skin: Other (No clubbing, cyanosis)
Assessment
-
88-year-old female with left breast cancer, mastectomy/chemotherapy/radiation 2006, atrial fibrillation on amiodarone therapy, presents with 2 weeks of progressive shortness of breath. Found to have large left pleural effusion, status
postthoracentesis. We are asked to comment on pulmonary process 09/05/2023
Subjective dyspnea x 2 weeks, progressive
Increased lower extreme edema
Dry cough
Large left pleural effusion
-500 cc drained 09/04
Transudate
Mild pleural thickening/pleural effusion left side
Per abdominal imaging 03/14/2020 (my review)
Normal-appearing in May 2019, PET scan
Atrial fibrillation
Amiodarone/Eliquis therapy
Amiodarone held approximately 3 weeks prior to admission
Right bundle branch block
Enlarged RV, PA pressure 55
Severe MR
Conditions present prior to admission
Abdominal aortic aneurysm 4.4 cm
Hypertension/hyperlipidemia
Questionable COPD
On Spiriva
[id number] history of smoking quit 1989
Plan/recommendations
At this time, patient is subjectively improved post thoracentesis
Pleural fluid appears to be consistent with transudate
Echocardiogram noted with RV dilatation, EF 50%, progression of valvular disease (MR/TR)
Moving forward
Continue with management per cardiology
Amiodarone has been resumed. Echocardiogram noted
Low suspicion for noncardiac process at this time given transudative nature
Will follow-up for recurrence
Patient on chronic anticoagulation making thromboembolic disease less likely
Continue to follow clinically. If effusion continues to recur, will consider CT imaging postthoracentesis but hold on further CT imaging at this time
We will continue to follow
[2023-09-05] MEDS: PACERONE 400 MG PO ×2 (16:57→23:50)
[2023-09-05] MEDS: VITAMIN D3 (cholecalciferol) 25 MCG PO (21:16)
[2023-09-05] MEDS: LIPITOR 40 MG PO (21:17)
[2023-09-06] VITALS (7 sets, daily range): BP systolic 86–115; BP diastolic 57–69; PULSE 82; O2SAT 97; BMI 22.2
[2023-09-06] MEDS: SPIRIVA RESPIMAT 2.5 MCG 2 PUFF INH (07:30)
[2023-09-06 07:34] LABS: % Basophils 0.5 % (0-2); % Eosinophils 2.2 % (0-6); % Immature Granulocytes 0.2 % (0-0.5); % Lymphocytes 22.3 % (20.5-51.1); % Monocytes 13.9 % (1.7-9.3); % Neutrophils 60.9 % (42.2-75.2); Absolute Eosinophils 0.1 10^3/uL (0-0.7); Absolute Lymphocytes 1.4 10^3/uL (1.2-3.4); Absolute Monocytes 0.9 10^3/uL (0.1-0.6); Absolute Neutrophils 3.9 10^3/uL (1.4-6.5); Hematocrit 33.6 % (37.0-47.0); Mean Corp Hgb Conc. 32.7 g/dL (33.0-37.0); Mean Corpuscular Hgb 30.1 pg (27.0-31.0); Mean Corpuscular Volume 91.8 fL (81.0-99.0); Mean Platelet Volume 10.5 fL (7.4-10.4); Nucleated Red Blood Cells % 0 %; Platelet Count 175 10^3/uL (130-400); Red Blood Cell Count 3.66 10^6/uL (4.20-5.40); Red Cell Dist. Width 14.9 % (11.5-14.5); White Blood Cell Count 6.4 10^3/uL (4.8-10.8)
[2023-09-06 07:58] LABS: Blood Urea Nitrogen 22 mg/dl (7-17); Calcium 8.9 mg/dl (8.4-10.2); Carbon Dioxide 34 mmol/L (22-30); Chloride 99 mmol/L (98-107); Estimated Creatinine Clearance 37 ml/min; Glucose 115 mg/dl (70-99); Potassium 4.2 mmol/L (3.5-5.1); Sodium 138 mmol/L (135-145); eGFR 54.53
[2023-09-06] MEDS: OSCAL 500 + D 500 MG PO ×2 (07:58→20:22)
[2023-09-06] MEDS: THERAGRAN 1 TABLET PO (07:59)
[2023-09-06] MEDS: PROTONIX 40 MG PO (07:59)
[2023-09-06] MEDS: PACERONE 400 MG PO ×3 (07:59→21:35)
[2023-09-06] MEDS: ZESTRIL 20 MG PO (07:59)
[2023-09-06] MEDS: LASIX 40 MG IV (07:59)
[2023-09-06] MEDS: ELIQUIS 5 MG PO ×2 (07:59→20:22)
[2023-09-06] MEDS: TOPROL XL 25 MG PO (07:59)
[2023-09-06] MEDS: KCL 10 MEQ PO ×2 (07:59→20:22)
--- NOTE | 2023-09-06 10:20 | W.PN.CARDCBS ---
Addendum entered and electronically signed by Saumya Jaramillo PA-C 09/06/23 17:24:
Updated patient's daughter, Kamini, by phone for 4: 57 minutes. Explained the plan for cardioversion tomorrow. Will hold Lasix with hypotension seen this afternoon. Will plan on keeping patient the night after cardioversion and then evaluating for
possible discharge on Monday.
Original Note:
Today's Communication / Plan
-
Cont IV lasix diuresis. Wt continues to come down.
Monitor cr which is stable. She was admitted with pro-BNP 2280 and evidence of pleural effusion on CXR.
Patient was taking Lasix 20 mg PO daily for only a few days just prior to this admission. She had orthostasis and syncope in the past.
Cont GDMT, could consider Jardiance.
Remains in rate controlled AFib. Cont Amiodarone 400 mg TID load.
Plan for cardioversion Sep 07 2023.
She has not missed any doses of Eliquis. Cont Eliquis.
Reviewed echo with pt. Her MR has worsended. MR to be reevaluated as outpt once back in sinus. She could potentially be assessed for MitraClip as outpt although daughter did not appear to be enthusiastic about procedures.
Will update her daughter today. Her son in law is Dr Townsend
Impression / Plan
-
.
PCP: Dr. Townsend
Cardiology: Dr. CHARLA Kelly
Impression:
Acute HFpEF
Severe MR/TR
s/p Moderate left and small right pleural effusion, s/p left thoracentesis 500 cc out September 05 2023
Paroxysmal Afib
s/p CV and addition of amiodarone approx 2018
Chronic amiodarone therapy, just stopped at office visit 08/08/23
Chronic Eliquis OAC
CAD s/p CABG with AZAR to LAD, SCG to PDA, SVG to OM, SVG to distal OM and DVG to Diag 1997
HTN
h/o orthostasis and syncope 2018
Hyperlipidemia
RBBB
DM 2
Paralyzed left hemidiaphragm
Echo 08/31/23: EF 50-55%, mild conc LVH, enlarged RV size, sev MR, aortic sclerosis without stenosis, sev TR with PAP 50-55 mmHg, no pericardial effusion
Plan:
Cont IV lasix diuresis. Wt continues to come down.
Monitor cr which is stable. She was admitted with pro-BNP 2280 and evidence of pleural effusion on CXR.
Patient was taking Lasix 20 mg PO daily for only a few days just prior to this admission. She had orthostasis and syncope in the past.
Cont GDMT, could consider Jardiance.
Remains in rate controlled AFib. Cont Amiodarone 400 mg TID load.
Plan for cardioversion Sep 07 2023.
She has not missed any doses of Eliquis. Cont Eliquis.
Reviewed echo with pt. Her MR has worsended. MR to be reevaluated as outpt once back in sinus. She could potentially be assessed for MitraClip as outpt although daughter did not appear to be enthusiastic about procedures.
Will update her daughter today. Her son in law is Dr Townsend
HPI: -Patient came to [facility] yesterday with increased SOB and was admitted with acute HF so cardiology has been consulted. Patient lives with her daughter and son in law, her son in law is Dr. Bowen Townsend. Patient has a h/o CABG in 1997. Then in
about 2018 she had CV and amiodarone loading for Afib. She had an episode of orthostasis and syncope once she was discharged to home in 2019. Since then she was doing well on Eliquis and amiodarone 100 mg daily. Then at her Dr. Kelly office visit
08/08/23 she was noted to be in Afib, but denied palpitations, chest pain or SOB. Dr. Kelly and patient and her daughter discussed options of rate control vs rhythm control. Patient and her family took some time to think about their options and
decided on rate control so her amiodarone was stopped and she was started on Toprol XL 25 mg daily. Patient seemed to be doing well until about 2 weeks ago when she started with CHOPRA and LE edema. No orthopnea or PND. Patient was started on Lasix 20
mg PO dialy by her PCP, but with ongoing CHOPRA she was brought to [facility] last night. She reports symptomatic improvement with Lasix 40 mg IV daily.
Progress Note - Caustic Preparer
Subjective
Date of Service: September 06, 2023
Pt seen and examined and feels improved. No cp.
Objective
Labs:
09/06/23 07:16
09/06/23 07:16
Labs
Hgb 11.0 g/dL (12.0-16.0) L 09/06/23 07:16
Hct 33.6 % (37.0-47.0) L 09/06/23 07:16
Plt Count 175 10^3/uL (130-400) 09/06/23 07:16
PT 23.3 Sec (11.4-14.6) H 09/04/23 14:40
INR 2.08 09/04/23 14:40
Sodium 138 mmol/L (135-145) 09/06/23 07:16
Potassium 4.2 mmol/L (3.5-5.1) 09/06/23 07:16
BUN 22 mg/dl (7-17) H 09/06/23 07:16
Creatinine 1.0 mg/dL (0.6-1.0) 09/06/23 07:16
Glucose 115 mg/dl (70-99) H 09/06/23 07:16
Troponins
09/04/23 09/04/23
14:40 15:59
Troponin I Cancelled 0.015
Vital Signs and I&O:
Vital Signs
Temp Pulse Resp BP Pulse Ox
98.4 F 85 18 110/69 92
09/06/23 07:56 09/06/23 07:59 09/06/23 07:56 09/06/23 07:59 09/06/23 07:56
Vital Signs
Temp Pulse Resp BP Pulse Ox
98.4 F 85 18 110/69 92
09/06/23 07:56 09/06/23 07:59 09/06/23 07:56 09/06/23 07:59 09/06/23 07:56
Intake & Output
09/04/23 09/05/23 09/06/23 09/07/23
06:59 06:59 06:59 06:59
Intake Total 408 / 408 1200 / 1200
Output Total 900 / 900 1150 / 1150
Balance -492 / -492 50 / 50
Physical Exam
Physical Exam
General: No acute distress, AAOX3
Neck: Negative JVD
Heart: Irregularly irregular, Negative S3 positive S1/S2, Negative S4, No murmur
Lungs: CTA b/l, negative wheezes/rales/rhonchi
Abd: Positive BS, NT/ND, neg rebound/rigidity/guarding
Ext: Negative cyanosis/clubbing. Mild LE b/l edema
Neuro: nonfocal
--- NOTE | 2023-09-06 10:29 | PN.CDI ---
CDI
- -
CDI:
Physician Documentation Request
Admit Date: 09/04/23 18:27
Dear Doctor Sujata,
Patient admitted for pleural effusion.
09/04 Cardiology Consult: 'Acute on chronic HFpEF...pro-BNP 2280 and evidence of pleural effusion on CXR. Patient diuresing well with Lasix 40 mg IV daily. Patient was taking Lasix 20 mg PO daily for only a few days just prior to this admission.'
09/04 Hospitalist PN: 'Chronic CHF, I/O, daily weights, Continue Lasix 40 mg IV daily, potassium 10 mEq twice daily'
Please provide further specificity regarding the most likely acuity of CHF you are evaluating, treating or monitoring:
Acute on chronic HFpEF
Chronic HFpEF
Other
Use of terms such as suspected, likely, concern for, or probable (associated with a specific diagnosis that is being evaluated, monitored, or treated as if it exists) are acceptable and can be coded in the inpatient setting, when documented at the
time of discharge.
Thank you,
Cheli Ann RN, BSN
CDI Specialist
Available via [facility] text
Please use your independent medical judgment in providing your response.
--- NOTE | 2023-09-06 10:33 | PN.CDI ---
CDI
- -
CDI:
Physician Documentation Request
Admit Date: 09/04/23 18:27
Dear Doctor Sujata,
Patient admitted for pleural effusion.
09/04 Cardiology PN: 'Persistent atrial fibrillation...This is after switching from a strategy of rhythm control on amiodarone to rate control when she had breakthrough A-fib on amiodarone...Since she has done poorly in A-fib, would restart
amiodarone with intent to proceed with cardioversion probably on September 06.'
09/04 Hospitalist PN: 'Paroxysmal A-fib -On monitor NSR to paroxysmal A-fib'
If possible, please provide further specificity regarding atrial fibrillation, such as:
Persistent atrial fibrillation - episodes of continuous AF that last more than 7 days and do not self-terminate
Paroxysmal atrial fibrillation - terminates spontaneously or with intervention within 7 days of onset
Other - please specify
Use of terms such as suspected, likely, concern for, or probable (associated with a specific diagnosis that is being evaluated, monitored, or treated as if it exists) are acceptable and can be coded in the inpatient setting, when documented at the
time of discharge.
Thank you,
Cheli Ann RN, BSN
CDI Specialist
Available via [facility] text
Please use your independent medical judgment in providing your response.
--- NOTE | 2023-09-06 11:42 | CM ---
Patient seen bedside, discussed PT recommendation of VN. Patient called daughter, CM spoke with daughter on the phone and discussed VN recommendation, patient and daughter agreeable to [facility]. TT sent to [facility] with referral. CM will continue to follow
for discharge planning needs.
Plan; home with [facility] pending acceptance.
--- NOTE | 2023-09-06 15:24 | W.PN.PUL3 ---
Today's Communication / Plan
-
Continue with diuresis
Plan for cardioversion tomorrow
Occasional chest x-ray to determine recurrence of left pleural effusion
Cytology pending
Assessment
-
88-year-old female with left breast cancer, mastectomy/chemotherapy/radiation 2006, atrial fibrillation on amiodarone therapy, presents with 2 weeks of progressive shortness of breath. Found to have large left pleural effusion, status
postthoracentesis. We are asked to comment on pulmonary process 09/05/2023
Subjective dyspnea x 2 weeks, progressive
Increased lower extreme edema
Dry cough
Large left pleural effusion
-500 cc drained 09/04
Transudate
Mild pleural thickening/pleural effusion left side
Per abdominal imaging 03/14/2020 (my review)
Normal-appearing in May 2019, PET scan
Atrial fibrillation
Amiodarone/Eliquis therapy
Amiodarone held approximately 3 weeks prior to admission
Right bundle branch block
Enlarged RV, PA pressure 55
Severe MR
Conditions present prior to admission
Abdominal aortic aneurysm 4.4 cm
Hypertension/hyperlipidemia
Questionable COPD
On Spiriva
[id number] history of smoking quit 1989
Plan/recommendations
At this time, patient is subjectively improved post thoracentesis
Pleural fluid appears to be consistent with transudate
Echocardiogram noted with RV dilatation, EF 50%, progression of valvular disease (MR/TR)
Diuresis continues per cardiology
Moving forward
Continue with management per cardiology
Amiodarone has been resumed. Echocardiogram noted
Low suspicion for noncardiac process at this time given transudative nature
Will follow-up for recurrence of pleural effusion but for now follow clinically
Patient on chronic anticoagulation making thromboembolic disease less likely
Being considered for cardioversion 09/07/2023
Continue to follow clinically. If effusion continues to recur, will consider CT imaging postthoracentesis but hold on further CT imaging at this time
Reviewed with patient and daughter at bedside
Subjective Data
-
Date of Service:
Date of Service: September 06, 2023
Subjective:
Patient is without pulm complaints. Denies shortness of breath, chest pain, cough, hemoptysis. Denies fevers, chills, nausea. Primary complaint is diarrhea. Daughter at bedside
Objective Data
Data Reviewed
Vital Signs / I&O / Oxygen:
Vital Signs
Temp Pulse Resp BP Pulse Ox
98 F 77 16 115/68 92
09/06/23 11:06 09/06/23 11:06 09/06/23 11:06 09/06/23 11:06 09/06/23 11:07
Intake and Output
09/05/23 09/06/23 09/07/23
06:59 06:59 06:59
Intake Total 408 / 408 1200 / 1200
Output Total 900 / 900 1150 / 1150
Balance -492 / -492 50 / 50
SaO2 92
Physical Exam
General: Comfortable and Other (Cachectic)
HEENT: Normocephalic and Anicteric
Cardiovascular: S1-S2, Regular Rhythm, Murmur (n) and Rub (n)
Respiratory: Wheeze (n), Crackles (n), Rhonchi (n), Non-Labored Respirations and Other (Decreased left base)
GI: Soft, Non Distended and Non Tender
Neurology: Awake, Alert and No Motor Deficits (Able to sit up without assistance)
Skin: Good Color, Jaundice (n) and Rash (n)
Labs/Micro/Reports
Lab Data
09/06/23 07:16
09/06/23 07:16
Microbiology
09/05/23 13:02 Pleural Fluid Fungal Smear - Final
No yeast or fungal elements seen.
09/05/23 13:02 Pleural Fluid Body Fluid Culture - Preliminary
No Growth After 18-24 Hours
09/05/23 13:02 Pleural Fluid Gram Stain - Preliminary
--- NOTE | 2023-09-06 16:11 | VNURNOTE ---
Home Health Liaison spoke with patient's daughter Kamini at 1600 to discuss [facility] nurse/therapy, visits, schedule and homebound status. Kamini is agreeable and understands that visits at home will be 2-3 x per week to assess and teach medical management.
[facility] contact information provided. Kamini is aware that [facility] will contact them for start of care in 1-2 days after discharge from .
[facility] referral completed in [facility].
--- NOTE | 2023-09-06 16:55 | W.PN.HOSP.TC ---
Today's Communication/Plan
-
cardioversion tomorrow
Assessment / Plan
Assessment / Plan
Large left-sided pleural effusion likely 2 prior left-sided radiation 2009 from breast cancer/mastectomy in conjunction with HFpEF
-underwent IR for thoracentesis with fluid analysis
transudate tot prot < 2.0
cyto pending
consulted Pulm, discussed with Dr. Bland
-Monitor pulse ox
-PT/OT/case management consult
#Hx left-sided breast cancer with mastectomy/radiation/chemotherapy chronic left arm lymphedema 2009
-No IVs left side arm
As per pt and dgt, No evidence of recurrent disease
#Hypokalemia likely from diuretic/pleural effusion
resolved
K3.3, KCl 40 mEq given in ER-->4.2
#Paroxysmal A-fib
-On monitor NSR to paroxysmal A-fib
-Continue Eliquis 5 mg p.o. twice daily
-Amiodarone was stopped approximately August 12 by cardiology due to NSR but patiently currently having episodes of paroxysmal A-fib. Now on Amio 400 tid as loading
-Continue metoprolol
-potential cardioversion 09/06
#COPD�no acute exacerbation
Continue Spiriva
Acute on chronic HFpEF
I/O, daily weights
Continue Lasix 40 mg IV daily, potassium 10 mEq twice daily
2D echo 08/31/2023: EF 50-55%, mild LVH, no wall abnormalities, diastolic function indeterminate, enlarged right ventricle, severely dilated atria ,severe MR,
severe TR pulm arterial pressure 50-55 mm/hg
#Severe MR/severe TR by echo
#HTN�benign
-Continue lisinopril 20 mg daily, metoprolol succinate 25 mg daily, amlodipine 5 mg at bedtime with hold parameters
HLD
-Continue atorvastatin 40 mg at bedtime
#GERD
-Continue Aciphex or equivalent
#Former smoker 30-year 1 pack a day quit 30 years ago
#Chronic ambulatory dysfunction uses rollator at baseline
PT/OT/case management consult
DVT prophylaxis
Continue [employer]RILL Eliquis
Reviewed with dgt at bedside
DNR per patient with daughter present at bedside
Anticipated Discharge: 24 - 48 hours
Subjective/Interval History
-
Date of Service: September 06, 2023
Breathing better post thoracentesis
Objective Data
-
Labs:
Laboratory Results
09/06/23
07:16
WBC 6.4
Hgb 11.0 L
Hct 33.6 L
Plt Count 175
Sodium 138
Potassium 4.2
Chloride 99
Carbon Dioxide 34 H
BUN 22 H
Creatinine 1.0
Glucose 115 H
Calcium 8.9
Vital Signs:
Vital Signs
Temp Pulse Resp BP Pulse Ox
97.8 F 84 18 98/62 98
09/06/23 13:00 09/06/23 13:00 09/06/23 13:00 09/06/23 13:00 09/06/23 13:00
I&O
09/05/23 09/06/23 09/07/23
06:59 06:59 06:59
Intake Total 408 / 408 1200 / 1200
Output Total 900 / 900 1150 / 1150
Balance -492 / -492 50 / 50
Review of Systems
-
History Source: Patient, Family (dgt at bedside), Physician (reviewed with Dr. Bland) and Coordinated Provider
Constitutional: Denies Fever
EENT: Reports No Symptoms Reported
Respiratory: Reports Trouble Breathing (better)
Cardiac: Denies Chest Pain
Abdomen/GI: Reports No Symptoms
Genitourinary: Reports No Symptoms
Physical Exam
-
General: Well Developed, Well Nourished and No Apparent Distress
HEENT: Normocephalic, Atraumatic and Moist Mucous Membranes
Respiratory: Decreased Breath Sounds (left lower 1/2 of lung field)
Cardiac: Regular Rhythm and S1/S2
GI: Soft, Nontender and Nondistended
Musculoskeletal: No Clubbing, No Cyanosis, Edema, Left Upper Extrem, Edema, Right Lower Extrem (trace) and Edema, Left Lower Extrem (trace)
Neuro: Awake, Alert and Oriented
[2023-09-06] MEDS: LIPITOR 40 MG PO (21:34)
[2023-09-06] MEDS: VITAMIN D3 (cholecalciferol) 25 MCG PO (21:34)
[2023-09-07] VITALS (11 sets, daily range): BP systolic 96–123; BP diastolic 51–86; BMI 22.3
[2023-09-07 07:04] LABS: % Basophils 0.7 % (0-2); % Eosinophils 2.6 % (0-6); % Immature Granulocytes 0.2 % (0-0.5); % Lymphocytes 27.5 % (20.5-51.1); % Monocytes 16.2 % (1.7-9.3); % Neutrophils 52.8 % (42.2-75.2); Absolute Eosinophils 0.2 10^3/uL (0-0.7); Absolute Lymphocytes 1.6 10^3/uL (1.2-3.4); Absolute Monocytes 0.9 10^3/uL (0.1-0.6); Absolute Neutrophils 3.1 10^3/uL (1.4-6.5); Hemoglobin 10.6 g/dL (12.0-16.0); Mean Corp Hgb Conc. 32.1 g/dL (33.0-37.0); Mean Corpuscular Hgb 29.4 pg (27.0-31.0); Mean Corpuscular Volume 91.7 fL (81.0-99.0); Mean Platelet Volume 11.2 fL (7.4-10.4); Nucleated Red Blood Cells % 0 %; Platelet Count 151 10^3/uL (130-400); White Blood Cell Count 5.8 10^3/uL (4.8-10.8)
[2023-09-07 07:15] LABS: Blood Urea Nitrogen 24 mg/dl (7-17); Calcium 8.7 mg/dl (8.4-10.2); Carbon Dioxide 32 mmol/L (22-30); Chloride 98 mmol/L (98-107); Estimated Creatinine Clearance 31 ml/min; Glucose 120 mg/dl (70-99); Potassium 4.4 mmol/L (3.5-5.1); Sodium 135 mmol/L (135-145); eGFR 43.81
[2023-09-07] MEDS: KCL 10 MEQ PO ×2 (08:12→20:03)
[2023-09-07] MEDS: PROTONIX 40 MG PO (08:13)
[2023-09-07] MEDS: PACERONE 400 MG PO ×3 (08:13→21:17)
[2023-09-07] MEDS: THERAGRAN 1 TABLET PO (08:14)
[2023-09-07] MEDS: ZESTRIL 20 MG PO (08:14)
[2023-09-07] MEDS: OSCAL 500 + D 500 MG PO ×2 (08:14→20:03)
[2023-09-07] MEDS: TOPROL XL 25 MG PO (08:14)
[2023-09-07] MEDS: ELIQUIS 5 MG PO ×2 (08:14→20:03)
[2023-09-07] MEDS: SPIRIVA RESPIMAT 2.5 MCG 2 PUFF INH (08:16)
--- NOTE | 2023-09-07 08:43 | W.PN.CARDCBS ---
Today's Communication / Plan
-
Lasix held September 06 with hypotension late September 05. Cr slowly rising. Likely resume oral lasix September 07.
She was admitted with pro-BNP 2280 and evidence of pleural effusion on CXR.
Patient was taking Lasix 20 mg PO daily for only a few days just prior to this admission. She had orthostasis and syncope in the past.
Cont GDMT, could consider Jardiance.
Remains in rate controlled AFib. Cont Amiodarone 400 mg TID load.
Plan for cardioversion Sep 07 2023.
She has not missed any doses of Eliquis. Cont Eliquis.
Impression / Plan
-
.
PCP: Dr. Townsend
Cardiology: Dr. CHARLA Kelly
Impression:
Acute HFpEF
Severe MR/TR
s/p Moderate left and small right pleural effusion, s/p left thoracentesis 500 cc out September 05 2023
Paroxysmal Afib
s/p CV and addition of amiodarone approx 2018
Chronic amiodarone therapy, just stopped at office visit 08/08/23
Chronic Eliquis OAC
CAD s/p CABG with AZAR to LAD, SCG to PDA, SVG to OM, SVG to distal OM and DVG to Diag 1997
HTN
h/o orthostasis and syncope 2018
Hyperlipidemia
RBBB
DM 2
Paralyzed left hemidiaphragm
Echo 08/31/23: EF 50-55%, mild conc LVH, enlarged RV size, sev MR, aortic sclerosis without stenosis, sev TR with PAP 50-55 mmHg, no pericardial effusion
Plan:
Lasix held September 06 with hypotension late September 05. Cr slowly rising. Likely resume oral lasix September 07.
She was admitted with pro-BNP 2280 and evidence of pleural effusion on CXR.
Patient was taking Lasix 20 mg PO daily for only a few days just prior to this admission. She had orthostasis and syncope in the past.
Cont GDMT, could consider Jardiance.
Remains in rate controlled AFib. Cont Amiodarone 400 mg TID load.
Plan for cardioversion Sep 07 2023.
She has not missed any doses of Eliquis. Cont Eliquis.
Reviewed echo with pt. Her MR has worsened. MR to be reevaluated as outpt once back in sinus.
She could potentially be assessed for MitraClip as outpt although daughter did not appear to be enthusiastic about procedures.
Pts daughter Kamini updated within last 24 hrs. Her son in law is Dr Bowen Townsend
HPI: -[facility]B and was admitted with acute HF so cardiology has been consulted. Patient lives with her daughter and son in law, her son in law is Dr. Bowen Townsend. Patient has a h/o CABG in 1997. Then in
about 2018 she had CV and amiodarone loading for Afib. She had an episode of orthostasis and syncope once she was discharged to home in 2018. Since then she was doing well on Eliquis and amiodarone 100 mg daily. Then at her Dr. Kelly office visit
08/08/23 she was noted to be in Afib, but denied palpitations, chest pain or SOB. Dr. Kelly and patient and her daughter discussed options of rate control vs rhythm control. Patient and her family took some time to think about their options and
decided on rate control so her amiodarone was stopped and she was started on Toprol XL 25 mg daily. Patient seemed to be doing well until about 2 weeks ago when she started with CHOPRA and LE edema. No orthopnea or PND. Patient was started on Lasix 20
mg PO dialy by her PCP, but with ongoing CHOPRA she was [facility]. She reports symptomatic improvement with Lasix 40 mg IV daily.
Progress Note - Instructor Extension Work
Subjective
Date of Service: September 07, 2023
Pt seen and examined. No cp or dyspnea.
Objective
Labs:
09/07/23 06:24
09/07/23 06:24
Labs
Hgb 10.6 g/dL (12.0-16.0) L 09/07/23 06:24
Hct 33.0 % (37.0-47.0) L 09/07/23 06:24
Plt Count 151 10^3/uL (130-400) 09/07/23 06:24
PT 23.3 Sec (11.4-14.6) H 09/04/23 14:40
INR 2.08 09/04/23 14:40
Sodium 135 mmol/L (135-145) 09/07/23 06:24
Potassium 4.4 mmol/L (3.5-5.1) 09/07/23 06:24
BUN 24 mg/dl (7-17) H 09/07/23 06:24
Creatinine 1.2 mg/dL (0.6-1.0) H 09/07/23 06:24
Glucose 120 mg/dl (70-99) H 09/07/23 06:24
Troponins
09/04/23 09/04/23
14:40 15:59
Troponin I Cancelled 0.015
Vital Signs and I&O:
Vital Signs
Temp Pulse Resp BP Pulse Ox
98.4 F 92 17 123/86 92
09/07/23 08:25 09/07/23 08:25 09/07/23 08:25 09/07/23 08:25 09/07/23 08:25
Vital Signs
Temp Pulse Resp BP Pulse Ox
98.4 F 92 17 123/86 92
09/07/23 08:25 09/07/23 08:25 09/07/23 08:25 09/07/23 08:25 09/07/23 08:25
Intake & Output
09/05/23 09/06/23 09/07/23 09/08/23
06:59 06:59 06:59 06:59
Intake Total 408 / 408 1200 / 1200 1080 / 1080
Output Total 900 / 900 1150 / 1150 1200 / 1200
Balance -492 / -492 50 / 50 -120 / -120
Physical Exam
Physical Exam
General: No acute distress, AAOX3
Neck: Negative JVD
Heart: Irregularly irregular, Negative S3 positive S1/S2, Negative S4, No murmur
Lungs: CTA b/l, negative wheezes/rales/rhonchi
Abd: Positive BS, NT/ND, neg rebound/rigidity/guarding
Ext: Negative cyanosis/clubbing/edema
Neuro: nonfocal
--- NOTE | 2023-09-07 10:41 | W.PN.UPDATE ---
Update Note
Progress Note Update
Successful DCCV to NSR. Full report to follow.
--- NOTE | 2023-09-07 10:56 | W.PN.HOSP.TC ---
Today's Communication/Plan
-
monitor post cardioversion
cytology still pending
Assessment / Plan
Assessment / Plan
Large left-sided pleural effusion likely due to prior left-sided radiation 2009 from breast cancer/mastectomy in conjunction with HFpEF
-underwent IR for thoracentesis with fluid analysis
transudate tot prot < 2.0
cyto pending
consulted Pulm, discussed with Dr. Bland
-Monitor pulse ox
-PT/OT/case management consult
#Hx left-sided breast cancer with mastectomy/radiation/chemotherapy chronic left arm lymphedema 2009
-No IVs left side arm
As per pt and dgt, No evidence of recurrent disease
#Hypokalemia likely from diuretic/pleural effusion
resolved
K3.3, KCl 40 mEq given in ER-->4.2-->4.4
#Paroxysmal A-fib
-On monitor NSR to paroxysmal A-fib
-Continue Eliquis 5 mg p.o. twice daily
-Amiodarone was stopped approximately August 12 by cardiology due to NSR but patiently currently having episodes of paroxysmal A-fib. Now on Amio 400 tid as loading
-Continue metoprolol
-just underwent successful cardioversion today 09/06 (pt seen by me immediately prior to going down for procedure). Called and discussed with Dr. Stallworth, preference would be to monitor for another day prior to dc
#COPD�no acute exacerbation
Continue Spiriva
Acute on chronic HFpEF
I/O, daily weights
Continue Lasix 40 mg IV daily, potassium 10 mEq twice daily
2D echo 08/31/2023: EF 50-55%, mild LVH, no wall abnormalities, diastolic function indeterminate, enlarged right ventricle, severely dilated atria ,severe MR,
severe TR pulm arterial pressure 50-55 mm/hg
#Severe MR/severe TR by echo
#HTN�benign
-Continue lisinopril 20 mg daily, metoprolol succinate 25 mg daily, amlodipine 5 mg at bedtime with hold parameters
HLD
-Continue atorvastatin 40 mg at bedtime
#GERD
-Continue Aciphex or equivalent
#Former smoker 30-year 1 pack a day quit 30 years ago
#Chronic ambulatory dysfunction uses rollator at baseline
PT/OT/case management consult
DVT prophylaxis
Continue [employer]ILD[employer] DES[employer] Eliquis
Reviewed with Kamini enriquez by phone
DNR per patient with daughter present at bedside
Anticipated Discharge: 24 - 48 hours
Subjective/Interval History
-
Date of Service: September 07, 2023
Denies sob
Objective Data
-
Labs:
Laboratory Results
09/07/23
06:24
WBC 5.8
Hgb 10.6 L
Hct 33.0 L
Plt Count 151
Sodium 135
Potassium 4.4
Chloride 98
Carbon Dioxide 32 H
BUN 24 H
Creatinine 1.2 H
Glucose 120 H
Calcium 8.7
Vital Signs:
Vital Signs
Temp Pulse Resp BP Pulse Ox
98.4 F 92 17 123/86 92
09/07/23 08:25 09/07/23 08:25 09/07/23 08:25 09/07/23 08:25 09/07/23 08:25
I&O
09/06/23 09/07/23 09/08/23
06:59 06:59 06:59
Intake Total 1200 / 1200 1080 / 1080
Output Total 1150 / 1150 1200 / 1200
Balance 50 / 50 -120 / -120
Review of Systems
-
History Source: Patient, Family (reviwed with otis by phone), Physician (reviewed with Dr. Bland) and Coordinated Provider
Constitutional: Denies Fever
EENT: Reports No Symptoms Reported
Respiratory: Reports Trouble Breathing (better)
Cardiac: Denies Chest Pain
Abdomen/GI: Reports No Symptoms
Genitourinary: Reports No Symptoms
Physical Exam
-
General: Well Developed, Well Nourished and No Apparent Distress
HEENT: Normocephalic, Atraumatic and Moist Mucous Membranes
Respiratory: Decreased Breath Sounds (left lower 1/2 of lung field)
Cardiac: S1/S2 and Irregular Rhythm
GI: Soft, Nontender and Nondistended
Musculoskeletal: No Clubbing, No Cyanosis, Edema, Left Upper Extrem, Edema, Right Lower Extrem (trace) and Edema, Left Lower Extrem (trace)
Neuro: Awake, Alert and Oriented
--- NOTE | 2023-09-07 14:36 | W.PN.PUL3 ---
Today's Communication / Plan
-
Await pleural fluid studies
Consider repeat imaging in 2 to 4 weeks as outpatient with pulmonary follow-up
Need to continue to follow for recurrence given history of breast cancer
Hoping that sinus rhythm lessens fluid issues, dyspnea
Assessment
-
88-year-old female with left breast cancer, mastectomy/chemotherapy/radiation 2006, atrial fibrillation on amiodarone therapy, presents with 2 weeks of progressive shortness of breath. Found to have large left pleural effusion, status
postthoracentesis. We are asked to comment on pulmonary process 09/05/2023
Subjective dyspnea x 2 weeks, progressive
Increased lower extreme edema
Dry cough
Large left pleural effusion
-500 cc drained 09/04
Transudate
Mild pleural thickening/pleural effusion left side
Per abdominal imaging 03/14/2020 (my review)
Normal-appearing in May 2019, PET scan
Atrial fibrillation
Amiodarone/Eliquis therapy
Amiodarone held approximately 3 weeks prior to admission
Right bundle branch block
Enlarged RV, PA pressure 55
Severe MR
Conditions present prior to admission
Abdominal aortic aneurysm 4.4 cm
Hypertension/hyperlipidemia
Questionable COPD
On Spiriva
[id number] history of smoking quit 1989
Plan/recommendations
At this time, patient is subjectively improved post thoracentesis
Pleural fluid appears to be consistent with transudate, cytology pending
Echocardiogram noted with RV dilatation, EF 50%, progression of valvular disease (MR/TR)
Diuresis continues per cardiology
Plan for ablation later today
Moving forward
Continue with management per cardiology
Amiodarone has been resumed. Echocardiogram noted
Low suspicion for noncardiac process at this time given transudative nature
Will follow-up for recurrence of pleural effusion but for now follow clinically
Patient on chronic anticoagulation making thromboembolic disease less likely
Successful cardioversion 09/07/2023, per cardiology correspondence. Now in sinus rhythm
Continue to follow clinically. If effusion continues to recur, will consider CT imaging postthoracentesis but hold on further CT imaging at this time
Reviewed with patient
Subjective Data
-
Date of Service:
Date of Service: September 07, 2023
Subjective:
Patient subjectively feeling well. Awaiting ablation later today. Examined earlier this morning. On room air. Denies chest pain, pleurisy, cough, hemoptysis, abdominal pain, nausea. General fatigue noted
Objective Data
Data Reviewed
Vital Signs / I&O / Oxygen:
Vital Signs
Temp Pulse Resp BP Pulse Ox
98 F 58 16 109/60 98
09/07/23 13:30 09/07/23 13:30 09/07/23 13:30 09/07/23 13:30 09/07/23 13:30
Intake and Output
09/06/23 09/07/23 09/08/23
06:59 06:59 06:59
Intake Total 1200 / 1200 1080 / 1080
Output Total 1150 / 1150 1200 / 1200
Balance 50 / 50 -120 / -120
SaO2 98
Physical Exam
General: Comfortable and Other (Cachectic)
HEENT: Normocephalic and Anicteric
Cardiovascular: S1-S2, Irregular Rhythm, Murmur (n) and Rub (n)
Respiratory: Wheeze (n), Crackles (n), Rhonchi (n), Non-Labored Respirations and Other (Decreased left base)
GI: Soft, Non Distended and Non Tender
Neurology: Awake, Alert and No Motor Deficits (Able to sit up without assistance)
Skin: Good Color, Jaundice (n) and Rash (n)
Labs/Micro/Reports
Lab Data
09/07/23 06:24
09/07/23 06:24
Microbiology
09/05/23 13:02 Pleural Fluid Body Fluid Culture - Preliminary
No Growth After 48 Hours
09/05/23 13:02 Pleural Fluid Gram Stain - Preliminary
09/05/23 13:02 Pleural Fluid Fungal Smear - Final
No yeast or fungal elements seen.
--- NOTE | 2023-09-07 16:13 | CM ---
met with patient sp thoracentesis for pleural effusion.sating 96% on ra,sp successful cvn,now in sr.ptt to reeval. [facility] following patient for home care.plan dc home with [facility] through [facility].
[2023-09-07] MEDS: VITAMIN D3 (cholecalciferol) 25 MCG PO (21:13)
[2023-09-07] MEDS: LIPITOR 40 MG PO (21:14)
[2023-09-08 03:26] VITALS: BP 113/58
[2023-09-08 06:00] VITALS: BMI 22.5
[2023-09-08 08:00] VITALS: BP 119/67
[2023-09-08] MEDS: SPIRIVA RESPIMAT 2.5 MCG 2 PUFF INH (08:02)
[2023-09-08] MEDS: PROTONIX 40 MG PO (10:19)
[2023-09-08] MEDS: PACERONE 400 MG PO (10:19)
[2023-09-08] MEDS: TOPROL XL 25 MG PO (10:21)
[2023-09-08] MEDS: ZESTRIL 20 MG PO (10:21)
[2023-09-08] MEDS: ELIQUIS 5 MG PO (10:22)
[2023-09-08] MEDS: THERAGRAN 1 TABLET PO (10:22)
[2023-09-08] MEDS: KCL 10 MEQ PO (10:22)
[2023-09-08] MEDS: OSCAL 500 + D 500 MG PO (10:25)
--- NOTE | 2023-09-08 10:50 | W.PN.CARDCBS ---
Addendum entered and electronically signed by George Rogel MD 09/08/23 12:47:
I saw and examined the patient.
The HEEL SCORER or PA's note was reviewed and I agree with the note.
Comment: General: Well developed, well nourished in NAD.
Stable cardiology status for discharge. Discussed with patient and hospitalist. Follow-up visit has been arranged. Will discharge on no Lasix given minimally elevated creatinine and history of orthostasis. Hopefully pleural effusion will resolve
with time. Consider outpatient repeat chest x-ray in 2 to 4 weeks. Will continue amiodarone and discharge on 200 mg p.o. twice daily.
Original Note:
Today's Communication / Plan
-
Status post cardioversion 09/07/2023 maintaining sinus rhythm
Continue amiodarone, would discharge on 200 mg BID
Continue Eliquis
will need follow up CXR in 2-4 week
Outpt cardiology follow up arranged
Impression / Plan
-
.
PCP: Dr. Townsend
Cardiology: Dr. CHARLA Kelly
Impression:
Presented 09/04/2023 with SOB, edema
Acute HFpEF, proBNP 2280
Severe MR/TR
Moderate left and small right pleural effusion
s/p left thoracentesis 500 cc out September 05 2023
Paroxysmal Afib
s/p CV and addition of amiodarone approx 2018
s/p CV 09/07/23
Chronic amiodarone therapy, just stopped at office visit 08/08/23 but resumed 09/03
Chronic Eliquis OAC
CAD
s/p CABG with AZAR to LAD, SCG to PDA, SVG to OM, SVG to distal OM and DVG to Diag 1997
HTN
h/o orthostasis and syncope 2018
Hyperlipidemia
RBBB
DM 2
Paralyzed left hemidiaphragm
Echo 08/31/23: EF 50-55%, mild conc LVH, enlarged RV size, sev MR, aortic sclerosis without stenosis, sev TR with PAP 50-55 mmHg, no pericardial effusion
Plan:
Presented 09/04/2023 with SOB, edema
Acute heart failure with proBNP 2280
Likely exacerbated by atrial fibrillation and left pleural effusion.
Diuresed 5 pounds and appears to be euvolemic
Patient was not on Lasix as an outpatient but provided during hospitalization.
She has history of orthostasis and prior syncope
Lasix has been on hold secondary to hypotension and slowly rising creatinine, 1.2. Would not resume Lasix at this time. Can be reassessed in outpatient cardiology office with decision to be made if patient would need Lasix
Paroxysmal atrial fibrillation which was new finding 08/08/2023 at office visit
Had been on amiodarone however was continued at 08/08/2023 office visit. Resumed amiodarone this admission and thus far has gotten 3600 mg load.
Patient underwent successful cardioversion 09/07/2023.
Would continue amiodarone 200 mg BID on discharge with consideration of reducing to once a day as outpatient
Cont Eliquis.
Reviewed echo with pt. Her MR has worsened while in atrial fibrillation . MR to be reevaluated as outpt once back in sinus.
Can arrange for outpatient echocardiogram at follow-up
She could potentially be assessed for MitraClip as outpt although daughter did not appear to be enthusiastic about procedures.
Left-sided pleural effusion
Status post thoracentesis 09/05/2023 500 cc, transudate
Now with decreased breath sounds at left base
Seen by pulmonary who recommended repeat imaging in 2 to 4 weeks
HPI: -[facility] with increased SOB and was admitted with acute HF so cardiology has been consulted. Patient lives with her daughter and son in law, her son in law is Dr. Bowen Townsend. Patient has a h/o CABG in 1997. Then in
about 2019 she had CV and amiodarone loading for Afib. She had an episode of orthostasis and syncope once she was discharged to home in 2019. Since then she was doing well on Eliquis and amiodarone 100 mg daily. Then at her Dr. Kelly office visit
08/08/23 she was noted to be in Afib, but denied palpitations, chest pain or SOB. Dr. Kelly and patient and her daughter discussed options of rate control vs rhythm control. Patient and her family took some time to think about their options and
decided on rate control so her amiodarone was stopped and she was started on Toprol XL 25 mg daily. Patient seemed to be doing well until about 2 weeks ago when she started with CHOPRA and LE edema. No orthopnea or PND. Patient was started on Lasix 20
mg PO dialy by her PCP, but with ongoing CHOPRA she was brought to [facility] last night. She reports symptomatic improvement with Lasix 40 mg IV daily.
Progress Note - Rn Enterostomal
Subjective
Date of Service: September 08, 2023
Patient seen and examined. Patient resting in bed comfortably. Patient on room air. She notes significant improvement in shortness of breath and energy since undergoing cardioversion yesterday
Objective
Labs:
09/07/23 06:24
09/07/23 06:24
Labs
Hgb 10.6 g/dL (12.0-16.0) L 09/07/23 06:24
Hct 33.0 % (37.0-47.0) L 09/07/23 06:24
Plt Count 151 10^3/uL (130-400) 09/07/23 06:24
PT 23.3 Sec (11.4-14.6) H 09/04/23 14:40
INR 2.08 09/04/23 14:40
Sodium 135 mmol/L (135-145) 09/07/23 06:24
Potassium 4.4 mmol/L (3.5-5.1) 09/07/23 06:24
BUN 24 mg/dl (7-17) H 09/07/23 06:24
Creatinine 1.2 mg/dL (0.6-1.0) H 09/07/23 06:24
Glucose 120 mg/dl (70-99) H 09/07/23 06:24
Vital Signs and I&O:
Vital Signs
Temp Pulse Resp BP Pulse Ox
97.7 F 59 16 113/58 94
09/08/23 03:26 09/08/23 08:02 09/08/23 08:02 09/08/23 03:26 09/08/23 08:02
Vital Signs
Temp Pulse Resp BP Pulse Ox
97.7 F 59 16 113/58 94
09/08/23 03:26 09/08/23 08:02 09/08/23 08:02 09/08/23 03:26 09/08/23 08:02
Intake & Output
09/06/23 09/07/23 09/08/23 09/09/23
06:59 06:59 06:59 06:59
Intake Total 1200 / 1200 1080 / 1080 640 / 640
Output Total 1150 / 1150 1200 / 1200 375 / 375
Balance 50 / 50 -120 / -120 265 / 265
Physical Exam
Physical Exam
GEN: No distress, awake, Ox3
HEENT: supple, anicteric, mmm
LUNGS: Decreased breath sounds at left base otherwise CTA, no wheezes/rales
CV: Reg, S1/S2, 2/6 syst murmur at apex
ABD: soft, BS+, NT/ND
EXT: No edema, clubbing or cyanosis
NEURO: Gross non-focal
SKIN: No rash, warm, dry
--- NOTE | 2023-09-08 10:50 | CM ---
Addendum entered by Indiana Strickland 09/08/23 15:30:
IMM reviewed and signed, placed in chart. Patients daughter here to provide transportation home. Updated [facility] through [facility] on patients discharge.
Original Note:
Patient seen bedside, reports no needs to CM. Referral made to [facility]. CM will continue to follow for discharge planning needs.
Plan; home with [facility] when stable.
[2023-09-08 11:00] VITALS: BP 110/62
--- NOTE | 2023-09-08 11:23 | W.PN.PUL3 ---
Today's Communication / Plan
-
Continue cardiac management, amiodarone resumed, remains on anticoagulation
Continue Spiriva
Recommend chest x-ray in 2 to 4 weeks with pulmonary follow-up, information left in chart
We will sign off. Please call with questions
Assessment
-
88-year-old female with left breast cancer, mastectomy/chemotherapy/radiation 2006, atrial fibrillation on amiodarone therapy, presents with 2 weeks of progressive shortness of breath. Found to have large left pleural effusion, status
postthoracentesis. We are asked to comment on pulmonary process 09/05/2023
Subjective dyspnea x 2 weeks, progressive
Increased lower extreme edema
Dry cough
Large left pleural effusion
-500 cc drained 09/04
Transudate
Mild pleural thickening/pleural effusion left side
Per abdominal imaging 03/14/2020 (my review)
Normal-appearing in May 2019, PET scan
Atrial fibrillation
Amiodarone/Eliquis therapy
Amiodarone held approximately 3 weeks prior to admission
Right bundle branch block
Enlarged RV, PA pressure 55
Severe MR
Conditions present prior to admission
Abdominal aortic aneurysm 4.4 cm
Hypertension/hyperlipidemia
Questionable COPD
On Spiriva
[id number] history of smoking quit 1989
Plan/recommendations
At this time, patient is subjectively improved post thoracentesis
Pleural fluid appears to be consistent with transudate, cytology pending
Echocardiogram noted with RV dilatation, EF 50%, progression of valvular disease (MR/TR)
Diuresis continues per cardiology
Plan for ablation later today
Moving forward
Continue with management per cardiology
Amiodarone has been resumed. Echocardiogram noted
Low suspicion for noncardiac process at this time given transudative nature
Will follow-up for recurrence of pleural effusion but for now follow clinically
Cytology pending
Patient on chronic anticoagulation making thromboembolic disease less likely
Successful cardioversion 09/07/2023, per cardiology correspondence. Now in sinus rhythm
Continue to follow clinically. If effusion continues to recur, will consider CT imaging postthoracentesis but hold on further CT imaging at this time
Follow-up chest x-ray in 2 to 4 weeks with pulmonary follow-up
Reviewed with patient
Reviewed with primary service
Disposition efforts noted. We will sign off. Please call with questions
Subjective Data
-
Date of Service:
Date of Service: September 08, 2023
Subjective:
Patient is without complaints. Denies chest pain, pleurisy, lightheadedness, dizziness, palpitations, cough. Appears to be in good spirits, on room air
Objective Data
Data Reviewed
Vital Signs / I&O / Oxygen:
Vital Signs
Temp Pulse Resp BP Pulse Ox
97.7 F 59 16 113/58 95
09/08/23 03:26 09/08/23 08:02 09/08/23 08:02 09/08/23 03:26 09/08/23 08:20
Intake and Output
09/07/23 09/08/23 09/09/23
06:59 06:59 06:59
Intake Total 1080 / 1080 640 / 640
Output Total 1200 / 1200 375 / 375
Balance -120 / -120 265 / 265
SaO2 95
Physical Exam
General: Comfortable and Other (Cachectic)
HEENT: Normocephalic and Anicteric
Cardiovascular: S1-S2, Irregular Rhythm, Murmur (n) and Rub (n)
Respiratory: Wheeze (n), Crackles (n), Rhonchi (n), Non-Labored Respirations and Other (Decreased left base)
GI: Soft, Non Distended and Non Tender
Neurology: Awake, Alert and No Motor Deficits (Able to sit up without assistance)
Skin: Good Color, Jaundice (n) and Rash (n)
Labs/Micro/Reports
Lab Data
09/07/23 06:24
09/07/23 06:24
Microbiology
09/05/23 13:02 Pleural Fluid Acid Fast Bacilli Smear - Preliminary
09/05/23 13:02 Pleural Fluid Acid Fast Bacilli Culture - Preliminary
09/05/23 13:02 Pleural Fluid Body Fluid Culture - Preliminary
No Growth After 48 Hours
09/05/23 13:02 Pleural Fluid Gram Stain - Preliminary
09/05/23 13:02 Pleural Fluid Fungal Smear - Final
No yeast or fungal elements seen.
[2023-09-08 12:41] VITALS: BP 122/63; PULSE 60; O2SAT 95
--- NOTE | 2023-09-08 15:10 | W.PN.HOSP.TC ---
Today's Communication/Plan
-
dc today
Assessment / Plan
Assessment / Plan
Large left-sided pleural effusion likely due to prior left-sided radiation 2009 from breast cancer/mastectomy in conjunction with HFpEF
-underwent IR for thoracentesis with fluid analysis, 500 cc obtained
transudate tot prot < 2.0
cyto pending
consulted Pulm, discussed with Dr. Bland
-Monitor pulse ox
-PT/OT/case management consult
#Hx left-sided breast cancer with mastectomy/radiation/chemotherapy chronic left arm lymphedema 2009
-No IVs left side arm
As per pt and dgt, No evidence of recurrent disease
#Hypokalemia likely from diuretic/pleural effusion
resolved
K3.3, KCl 40 mEq given in ER-->4.2-->4.4
#Paroxysmal A-fib
-On monitor NSR to paroxysmal A-fib
-Continue Eliquis 5 mg p.o. twice daily
-Amiodarone was stopped approximately August 12 by cardiology due to NSR but patiently currently having episodes of paroxysmal A-fib. Now on Amio 400 tid as loading
-Continue metoprolol
-just underwent successful cardioversion today 09/06 (pt seen by me immediately prior to going down for procedure). Called and discussed with Dr. Stallworth, preference would be to monitor for another day prior to dc
#COPD�no acute exacerbation
Continue Spiriva
Acute on chronic HFpEF
I/O, daily weights
As per cardio, will stop Lasix
2D echo 08/31/2023: EF 50-55%, mild LVH, no wall abnormalities, diastolic function indeterminate, enlarged right ventricle, severely dilated atria ,severe MR,
severe TR pulm arterial pressure 50-55 mm/hg
#Severe MR/severe TR by echo
#HTN�benign
-Continue lisinopril 20 mg daily, metoprolol succinate 25 mg daily, amlodipine 5 mg at bedtime with hold parameters
HLD
-Continue atorvastatin 40 mg at bedtime
#GERD
-Continue Aciphex or equivalent
#Former smoker 30-year 1 pack a day quit 30 years ago
#Chronic ambulatory dysfunction uses rollator at baseline
PT/OT/case management consult
DVT prophylaxis
Continue TR[employer] Eliquis
Reviewed with Kamini enriquez, at computer
DNR per patient with daughter present at bedside
More than 30 minutes spent in discharge including
Final examination of the patient
Summarizing hospital stay
Instructions for continuing care to all relevant caregivers
Preparation of discharge records, prescriptions, and referral forms
Total time spent (in minutes): 45
Anticipated Discharge: Today
Subjective/Interval History
-
Date of Service: September 08, 2023
Feels well, dressed and awaiting dc
Objective Data
-
Vital Signs:
Vital Signs
Temp Pulse Resp BP Pulse Ox
97.8 F 59 20 110/62 93
09/08/23 11:00 09/08/23 11:00 09/08/23 11:00 09/08/23 11:00 09/08/23 11:00
I&O
09/07/23 09/08/23 09/09/23
06:59 06:59 06:59
Intake Total 1080 / 1080 640 / 640
Output Total 1200 / 1200 375 / 375
Balance -120 / -120 265 / 265
Review of Systems
-
History Source: Patient, Family (reviewed with dgt in room), Physician (reviewed with Dr. Bland) and Coordinated Provider
Constitutional: Denies Fever
EENT: Reports No Symptoms Reported
Respiratory: Reports Trouble Breathing (better)
Cardiac: Denies Chest Pain
Abdomen/GI: Reports No Symptoms
Genitourinary: Reports No Symptoms
Physical Exam
-
General: Well Developed, Well Nourished and No Apparent Distress
HEENT: Normocephalic, Atraumatic and Moist Mucous Membranes
Respiratory: Clear to Auscultation (clear today)
Cardiac: S1/S2 and Irregular Rhythm
GI: Soft, Nontender and Nondistended
Musculoskeletal: No Clubbing, No Cyanosis, Edema, Left Upper Extrem (significant reduced), Edema, Right Lower Extrem (none, resolved) and Edema, Left Lower Extrem (none, resolved)
Neuro: Awake, Alert and Oriented
[2023-09-08 15:15] VITALS: BP 122/68
--- NOTE | 2023-09-08 16:06 | W.HF.CON ---
Heart Failure
- LV Function
Left ventricular function study result: LV Ejection fraction >40% (ECHO 08/31/23)
Ejection Fraction Percentage: 50-55
- ARNI
Patient already on ARNI: No
Heart Failure ARNI Not Indicated: LV Ejection Fraction >/= 40%
- ACEI/ARB
Patient already on ACEI/ARB: Yes
- Beta Betsy
Patient already on Evidence Based Beta Betsy: Yes
- Mineralocorticord Receptor Antagonist
Patient already on MRA: No
Heart Failure MRA Not Indicated: LV Ejection Fraction > 40%
- SGLT-2 Inhibitor
Patient already on SGLT-2 Inhibitor: No
Heart Failure SGLT-2 Inhibitor Not Indicated: LV Ejection Fraction >40%
- Afib Anticoagulation
Patient already on Anticoagulation for Afib: Yes
- NYHA CHF Classification
NYHA CHF Classification Level: Class III - Symptoms w/ min exertion, interferes w/ nml daily activity
- ACC/AHA Stage
ACC/AHA Stage: Stage C: Symptomatic Heart Failure
--- NOTE | 2023-09-08 16:59 | W.DS.TRANS ---
DC Summary - Grain Picker
-
Discharge Instructions:
Sleep Apnea Risk Intermediate
Discharge Diagnosis/Procedures Heart Failure with preserved EF
Diet Low Sodium,Restrict fluids to 64 oz
Activity As tolerated,With Walker
Driving Restrictions No driving
Bathing Restrictions None
Blood Work CBC, BMP in 1-2 weeks
Others Tests CXR in 2-4 wks
Other Services VN
Instructions: *[facility] Heart Failure Instructions
Stand-Alone Forms:
Changes to Home Medications: Yes
Discharge Medications:
DC Medications w/original date entered in [employer]
amlodipine 5 mg tablet 5 mg PO HS Blood Pressure 09/04/23
apixaban 5 mg tablet (Eliquis) 5 mg PO BID Blood Clot Prevention/Tx 09/04/23
atorvastatin 40 mg tablet 40 mg PO HS High Cholesterol 09/04/23
calcium carbonate 600 mg-vitamin D3 10 mcg (400 unit) tablet (Calcium 600 + D(3)) 1 tab PO BID Supplement 09/04/23
cholecalciferol (vitamin D3) 25 mcg (1,000 unit) tablet 25 mcg PO HS Supplement 09/04/23
lisinopril 20 mg tablet 20 mg PO DAILY Blood Pressure 09/04/23
metoprolol succinate 25 mg tablet,extended release 24 hr 25 mg PO DAILY Blood Pressure 09/04/23
multivitamin with minerals-folic acid 0.4 mg tablet (One-A-Day Women's 50 Plus) 1 tab PO DAILY Supplement 09/04/23
rabeprazole 20 mg tablet,delayed release 20 mg PO DAILY Gastrointestinal Issue 09/04/23
tiotropium bromide 18 mcg capsule with inhalation device (Spiriva with HandiHaler) 1 cap inhalation R DAILY Lung/Breathing Issues 09/04/23
amiodarone 200 mg tablet 200 mg PO BID #90 tabs 09/08/23
polyethylene glycol 3350 17 gram oral powder packet (HealthyLax) 17 g PO DAILYPRN PRN constipation #0 ea 09/08/23
Home Medication Changes
Amiodarone to be resumed at 200 mg bid
Pending Results: No
== END 2023-09-08 17:18 | disposition home health service (06) | DRG 291 ==
LOC: 4 EAST ACU 18:27
PROVIDERS: Clinical Nurse Specialist Family Health; Internal Medicine; Radiology Diagnostic Radiology; ADMITTING PHYSICIAN Internal Medicine; CONSULT PHYSICIAN Internal Medicine Critical Care Medicine; EMERGENCY PHYSICIAN Emergency Medicine; FAMILY PHYSICIAN Internal Medicine; OTHER PHYSICIAN Internal Medicine Cardiovascular Disease
PROC: 0W9B3ZZ Drainage of Left Pleural Cavity, Percutaneous Approach (ICD-10-PCS; 2023-09-05)
PROC: 5A2204Z Restoration of Cardiac Rhythm, Single (ICD-10-PCS; 2023-09-07)
DX: I11.0 Hypertensive heart disease with heart failure (principal); I50.43 Acute on chronic combined systolic (congestive) and diastolic (congestive) heart failure; I48.19 Other persistent atrial fibrillation; E87.6 Hypokalemia; Z66 Do not resuscitate; Z87.891 Personal history of nicotine dependence; E78.00 Pure hypercholesterolemia, unspecified; Z79.01 Long term (current) use of anticoagulants; K21.9 Gastro-esophageal reflux disease without esophagitis; I71.43 Infrarenal abdominal aortic aneurysm, without rupture; T50.2X5A Adverse effect of carbonic-anhydrase inhibitors, benzothiadiazides and other diuretics, initial encounter; I48.0 Paroxysmal atrial fibrillation
CPT/HCPCS: 88305; 32555; 71045; 71046; 80048; 80053; 82150; 82945; 83615; 83735; 83880; 83986; 84157; 84478; 84484; 85025; 85610; 87015; 87070; 87102; 87116; 87205; 87206; 88112; 88341; 88342; 89051; 92960; 93005; 94640; 96374; 97162; 97166; 97530; 97535; 99291

== ENCOUNTER → 2023-11-11 08:01 | Outpatient (REF) | payer MEDICARE, OTHER, SELFPAY | LOC: RAD 08:01 | PROVIDERS: ATTENDING PHYSICIAN Nurse Practitioner Family; FAMILY PHYSICIAN Internal Medicine | DX: J90 Pleural effusion, not elsewhere classified (principal) | CPT/HCPCS: 71046 ==

== ENCOUNTER → 2023-12-08 08:21 | Outpatient (REF) | payer MEDICARE, OTHER, SELFPAY | LOC: RCS 08:21 | PROVIDERS: ATTENDING PHYSICIAN Physician Assistant; FAMILY PHYSICIAN Internal Medicine | DX: I25.10 Atherosclerotic heart disease of native coronary artery without angina pectoris (principal); I48.0 Paroxysmal atrial fibrillation; Z86.79 Personal history of other diseases of the circulatory system; I34.0 Nonrheumatic mitral (valve) insufficiency | CPT/HCPCS: 93306 ==

== ENCOUNTER → 2023-12-21 10:47 | Outpatient (REF) | payer MEDICARE, OTHER, SELFPAY | LOC: RAD 10:47 | PROVIDERS: ATTENDING PHYSICIAN Internal Medicine Cardiovascular Disease; FAMILY PHYSICIAN Internal Medicine | DX: J90 Pleural effusion, not elsewhere classified (principal) | CPT/HCPCS: 71046 ==

== ENCOUNTER → 2024-01-16 10:34 | Day surgery (SDC) | payer MEDICARE, OTHER, SELFPAY ==
[2024-01-16 11:51] LABS: Glucose - Point of Care 94 mg/dl (70-99)
--- NOTE | 2024-01-16 11:56 | ITS.CL.CARDI ---
Chisel Mortiser Operator - Cardioversion
Cardioversion
Procedure Report:
Date of Procedure:
Procedure: Cardioversion
Indication: Symptomatic atrial fibrillation
Performing Physician: Murali Arce MD
Technique: The patient was brought to the holding area. Signed informed consent was obtained. A time out was called and performed. The patient was anesthetized by the anesthesia service. Anticoagulation status was reviewed and appropriate. R2 pads
were placed anteriorly and posteriorly. A 200 J synchronized biphasic shock restored normal sinus rhythm without significant bradycardia. There were no complications.
Conclusion: Uncomplicated cardioversion from atrial fibrillation to sinus rhythm.
Recommendation: Routine post cardioversion care. Continue intermediate anticoagulation.
[2024-01-16 12:10] VITALS: BMI 20.2
== END ==
LOC: CATH 10:34
PROVIDERS: ATTENDING PHYSICIAN Internal Medicine Cardiovascular Disease; FAMILY PHYSICIAN Internal Medicine; OTHER PHYSICIAN Internal Medicine Cardiovascular Disease
DX: I48.0 Paroxysmal atrial fibrillation (principal); R06.02 Shortness of breath; I11.0 Hypertensive heart disease with heart failure; I50.9 Heart failure, unspecified; I45.10 Unspecified right bundle-branch block; I25.10 Atherosclerotic heart disease of native coronary artery without angina pectoris; Z95.1 Presence of aortocoronary bypass graft; E78.00 Pure hypercholesterolemia, unspecified; E11.9 Type 2 diabetes mellitus without complications; Z85.3 Personal history of malignant neoplasm of breast; Z87.891 Personal history of nicotine dependence; Z79.01 Long term (current) use of anticoagulants; Z79.84 Long term (current) use of oral hypoglycemic drugs
CPT/HCPCS: 82962; 92960; 93005

== ENCOUNTER 2024-04-12 11:53 | Inpatient (IN) | payer MEDICARE, OTHER, SELFPAY ==
[2024-04-12] VITALS (12 sets, daily range): BP systolic 131–151; BP diastolic 76–107; BMI 18.8
--- NOTE | 2024-04-12 08:53 | ED.GENMED ---
History of Present Illness
General
Chief Complaint: Vaginal Bleeding
Source: patient and ambulance crew
Time Seen by Provider: 04/12/24 08:38
History of Present Illness
History of Present Illness:
89yoF with a history of atrial fibrillation on Eliquis, coronary artery disease s/p CABG, COPD, remote history of breast cancer presenting via EMS for evaluation of possible vaginal bleeding. Patient was urinating on the toilet this morning. She
got up to wash her hands afterwards. She noticed a large amount of bright red blood on the floor as well as in the toilet. She is unsure where the bleeding was coming from but believes it might be vaginal. She immediately called EMS. She feels
mildly lightheaded currently but is otherwise asymptomatic. She denies any chest pain, shortness of breath, abdominal pain, pelvic pain.
Past History
Past History
ED Past Medical History: Arrthythmia (Atrial fibrillation), CAD, Cancer, CHF, COPD, HTN and Hypercholesterolemia
ED Past Surgical History: Cardiac and Gynecological
Social History
Tobacco: Non-smoker
Living: with family
Employment: Retired
Phy Exam
General Physical Exam
General Presentation: well appearing and no apparent distress
General age: appears stated age
General Skin: warm and dry
General Habitus: normal and elderly
General Mental: alert
ENT Exam
ENT Exam: normocephalic
Cardiovascular Exam
Cardiovascular Exam: regular rate/rhythm
Pulmonary Exam
Pulmonary Exam: no respiratory distress, no rales, no rhonchi and other (Decreased breath sounds at the L base)
Gastrointestinal Exam
Gastrointestinal Exam: non tender, soft and non distended
Rectal Exam: other (Dried blood noted on brief. Small amount of bright red blood noted surrounding rectum and small amount of bright red blood noted on digital rectal exam.)
Stool: other
Genitourinary Exam Female
Exam Female: other (Speculum exam performed and no vaginal bleeding visualized)
Neurological Exam
Neurological Exam: alert
[place] Coma Scale
Eye Opening: Spontaneous
Verbal Response: Oriented
Motor Response: Obeys Commands
GCS Total Score: 15
Skin Exam
Skin Exam: normal color and warm/dry
Psychiatric Exam
Psychiatric Exam: normal mood/affect
Course
Orders/Labs/Results
Orders:
Orders
04/12/24 08:52
Electrocardiogram (*1) Urgent
Reason for Study: Vertigo / Dizzy
EKG- Treatment ONCE
04/12/24 08:55
Urinalysis Reflex To Culture Urgent
04/12/24 09:01
Type+Screen Urgent
Complete Blood Count/With Diff Urgent
Comprehensive Metabolic Panel Urgent
PTT Urgent
Prothrombin Time Urgent
Abnormal Lab Results
04/12/24
09:01
RBC 3.87 L 10^6/uL
(4.20-5.40)
Hgb 11.8 L g/dL
(12.0-16.0)
Hct 36.7 L %
(37.0-47.0)
MCHC 32.2 L g/dL
(33.0-37.0)
RDW 14.9 H %
(11.5-14.5)
Absolute Monos (auto) 0.8 H 10^3/uL
(0.1-0.6)
Immature Gran % 0.6 H %
(0-0.5)
Monocytes % 11.6 H %
(1.7-9.3)
PT 15.4 H Sec
(11.4-14.6)
BUN 33 H mg/dl
(7-17)
Creatinine 1.3 H mg/dL
(0.6-1.0)
Glucose 146 H mg/dl
(70-99)
AST 45 H U/L
(14-36)
ALT 42 H U/L
(0-35)
Total Protein 6.0 L g/dl
(6.3-8.2)
04/12/24 09:01
04/12/24 09:01
Vital Signs
Initial and Last Documented VS:
Initial Vital Signs
Temp Pulse Resp BP Pulse Ox
98.5 F 95 16 148/87 98
04/12/24 08:39 04/12/24 08:39 04/12/24 08:39 04/12/24 08:39 04/12/24 08:39
Last Documented Vital Signs
Temp Pulse Resp BP Pulse Ox
98.5 F 98 26 131/99 97
04/12/24 08:39 04/12/24 09:00 04/12/24 09:00 04/12/24 09:00 04/12/24 09:00
MDM/Problems Addressed
Differential Diagnosis Includes:
89yoF here after noticing a large amount of blood on the blood/toilet after urinating this morning. Patient unsure where bleeding is coming from. Only complaint currently is mild lightheadedness. No abdominal pain. Currently on Eliquis. She is
afebrile and hemodynamically stable. She is well appearing in no distress. No blood noted on speculum exam. Small amount of bright red blood noted on digital rectal exam. Differential diagnosis includes but is not limited to: hemorrhoidal bleeding,
diverticular bleeding, AVM, malignancy, anemia
Initial ED plan: Check CBC, CMP, coags, type and screen, and EKG. Will also obtain UA to evaluate for hematuria.
*EKG
Interpreted by ED Provider?: Yes
EKG Intrepretation Date: 04/12/24
Heart Rate: 105
Rate: tachycardiac
Rhythm: a-fib
[place]: normal axis
QRS Pattern: right bundle branch block
Ischemia: non-specific ST changes
*Critical Care Note
Total Time (30-74mins, 75-104mins- exclusive of procedures): Not Applicable
Update Note
Update Note:
Hemoglobin stable at 11.8. Creatinine slightly above baseline at 1.3. Given that she is on anticoagulation, will admit for further evaluation and monitoring.
ED Attending Note
-
Portions of this chart may have been created with voice recognition software.� Occasional wrong word or��sound alike� substitutions may have occurred due to the inherent limitations of voice recognition software.
Discharge Plan
Departure
Patient Disposition: Admit
Date of Disposition: 04/12/24
Time of Disposition: 09:52
Presentation/result/management discussed w/ accepting MD/DO: Hospitalist
Discharge Problem:
Rectal bleeding
Prescriptions:
No Action
atorvastatin 40 mg Tablet
40 mg PO HS
rabeprazole 20 mg Tablet,Delayed Release (Dr/Ec)
20 mg PO DAILY
lisinopril 20 mg Tablet
20 mg PO DAILY
metoprolol succinate 25 mg Tablet Extended Release 24 Hr
25 mg PO DAILY
tiotropium bromide [Spiriva with HandiHaler] 18 mcg Capsule, W/Inhalation Device
1 cap INHALATION R DAILY
cholecalciferol (vitamin D3) 25 mcg (1,000 unit) Tablet
25 mcg PO HS
calcium carbonate-vitamin D3 [Calcium 600 + D(3)] 600 mg-10 mcg (400 unit) Tablet
1 tab PO BID
multivit with min-folic acid [One-A-Day Women's 50 Plus] 0.4 mg Tablet
1 tab PO DAILY
Eliquis 5 mg Tablet
5 mg PO BID
polyethylene glycol 3350 [HealthyLax] 17 gram Powder In Packet
17 g PO DAILYPRN PRN (Reason: constipation) Qty: 0 0RF
Jardiance 10 mg Tablet
10 mg PO DAILY
amiodarone 200 mg tablet
200 mg PO BID
Referrals:
Bowen Townsend DO [Family Provider] -
Interventions
Interventions:
*Risk Screen - Suicide Last Done: 04/12/24 08:39
*General Assessment Last Done: 04/12/24 08:39
*Neglect/Abuse Screening Last Done: 04/12/24 08:39
ED- Fall Risk Assessment Last Done: 04/12/24 08:39
*ED COVID-19 Vaccine History Last Done: 04/12/24 08:39
ED-Female Genitourinary Assessment Last Done: 04/12/24 09:07
Discharge Date and Time
Print Language: PANAMANIAN
[2024-04-12 09:21] LABS: % Basophils 0.4 % (0-2); % Eosinophils 1.5 % (0-6); % Immature Granulocytes 0.6 % (0-0.5); % Monocytes 11.6 % (1.7-9.3); % Neutrophils 64.9 % (42.2-75.2); Absolute Eosinophils 0.1 10^3/uL (0-0.7); Absolute Lymphocytes 1.4 10^3/uL (1.2-3.4); Absolute Monocytes 0.8 10^3/uL (0.1-0.6); Absolute Neutrophils 4.4 10^3/uL (1.4-6.5); Hematocrit 36.7 % (37.0-47.0); Hemoglobin 11.8 g/dL (12.0-16.0); Mean Corp Hgb Conc. 32.2 g/dL (33.0-37.0); Mean Corpuscular Hgb 30.5 pg (27.0-31.0); Mean Corpuscular Volume 94.8 fL (81.0-99.0); Mean Platelet Volume 10.3 fL (7.4-10.4); Nucleated Red Blood Cells % 0 %; Platelet Count 186 10^3/uL (130-400); Red Blood Cell Count 3.87 10^6/uL (4.20-5.40); Red Cell Dist. Width 14.9 % (11.5-14.5); White Blood Cell Count 6.8 10^3/uL (4.8-10.8)
[2024-04-12 09:29] LABS: INR 1.19; PT 15.4 Sec (11.4-14.6)
[2024-04-12 09:31] LABS: ALT (SGPT) 42 U/L (0-35); AST (SGOT) 45 U/L (14-36); Albumin 3.5 g/dl (3.5-5.0); Alkaline Phosphatase 125 U/L (38-126); Blood Urea Nitrogen 33 mg/dl (7-17); Calcium 8.9 mg/dl (8.4-10.2); Carbon Dioxide 29 mmol/L (22-30); Chloride 103 mmol/L (98-107); Estimated Creatinine Clearance 27 ml/min; Glucose 146 mg/dl (70-99); Potassium 3.7 mmol/L (3.5-5.1); Sodium 139 mmol/L (135-145); Total Bilirubin 0.5 mg/dl (0.2-1.3); eGFR 39.55
--- NOTE | 2024-04-12 11:04 | EDRN ---
Patient became more tachycardic to 118 hr when ambulating to bedside commode. Admissions md at bedside.
[2024-04-12 11:25] LABS: Urine Albumin Trace (Neg - Trace); Urine Bilirubin Negative (Negative); Urine Color Yellow; Urine Glucose 3+ (Negative); Urine Ketone Negative (Negative); Urine Leukocyte Negative (Negative); Urine Nitrite Positive (Negative); Urine Occult Blood Negative (Negative); Urine Urobilinogen Negative (Neg - 1+)
[2024-04-12 11:33] LABS: Urine Character Slightly Cloudy (Clear)
--- NOTE | 2024-04-12 11:38 | HPS.HSE ---
Family Physician
-
Family Physician: Bowen Townsend
Chief Complaint
-
rectal bleeding
History of Present Illness
89-year-old female with past medical history of paroxysmal atrial fibrillation/flutter on Eliquis, CAD status post CABG, COPD, remote history of breast cancer came to the hospital initially with complaint of vaginal bleeding. However upon ER
speculum exam patient had no vaginal bleeding and instead had blood in her rectum. This morning when patient was going to the bathroom she noted large amount of bright red blood on her floor which prompted her daughter to call EMS who brought
patient to the hospital. Patient currently denies any dizziness, abdominal pain. Denies any shortness of breath. Some of the history was also taken from the daughter at bedside. Patient reported she never had colonoscopy in the past.
Medical History
Past Medical History
Past Medical History: Reports CAD, Cancer, COPD, HTN and Hypercholesterolemia
Past Surgical History: Reports Cardiac and Gynocological
Social History
Tobacco: Non-smoker
Family History
Family History: Not pertinent
Allergies / Home Medications
Allergies reflects when Allergies were last updated in [facility].
Home Medications with original date entered in [facility]
Allergy/Medication List:
Allergies
Allergy/AdvReac Type Severity Reaction Status Date / Time
iron [Iron] Allergy Rash Verified 04/12/24 08:44
Home Medications
atorvastatin 40 mg tablet 40 mg PO HS High Cholesterol 09/04/23
calcium 600 mg (as carbonate)-vitamin D3 10 mcg (400 unit) tablet (Calcium 600 + D(3)) 1 tab PO BID Supplement 09/04/23
cholecalciferol (vitamin D3) 25 mcg (1,000 unit) tablet 25 mcg PO DAILY Supplement 09/04/23
metoprolol succinate 25 mg tablet,extended release 24 hr 25 mg PO DAILY Blood Pressure 09/04/23
rabeprazole 20 mg tablet,delayed release 20 mg PO DAILY Gastrointestinal Issue 09/04/23
tiotropium bromide 18 mcg capsule with inhalation device (Spiriva with HandiHaler) 1 cap inhalation R DAILY Lung/Breathing Issues 09/04/23
amiodarone 200 mg tablet 200 mg PO DAILY afib 01/16/24
empagliflozin 10 mg tablet (Jardiance) 10 mg PO DAILY 01/16/24
apixaban 2.5 mg tablet (Eliquis) 2.5 mg PO BID 04/12/24
docusate sodium 100 mg capsule (Stool Softener) 100 mg PO DAILYPRN PRN constipation 04/12/24
therapeutic multivitamin 1 tab PO DAILY 04/12/24
Review of Systems
-
History Source: Patient and Family
A 12 point ROS was completed and negative except as noted: Yes
Abdomen/GI: Denies Abdominal Pain or Nausea
Physical Exam
Vital Signs
Vital Signs
Temp Pulse Resp BP Pulse Ox
98.5 F 100 31 151/93 97
04/12/24 08:39 04/12/24 11:00 04/12/24 11:00 04/12/24 11:00 04/12/24 11:00
Physical Exam
General: Well Nourished and No Apparent Distress
HEENT: Anicteric and Moist mucous membranes
Respiratory: Clear and Non Labored Respirations; No Wheezes
Cardiac: S1/S2 and Irregular Rhythm
Breast: Deferred by me
GI: Soft, Non Tender and Non Distended
Genito-urinary: No Sierra
Musculoskeletal: No Edema
Neuro: Awake, Alert and Oriented
Psych: Calm
Laboratory Results
-
04/12/24 09:01
04/12/24 09:01
Laboratory Results
PT 15.4 Sec (11.4-14.6) H 04/12/24 09:01
INR 1.19 04/12/24 09:01
APTT 31.0 Sec (23.4-35.0) 04/12/24 09:01
Total Bilirubin 0.5 mg/dl (0.2-1.3) 04/12/24 09:
AST 45 U/L (14-36) H 04/12/24 09:
ALT 42 U/L (0-35) H 04/12/24 09:
Alkaline Phosphatase 125 U/L (38-126) 04/12/24 09:
Data Reviewed
-
Lab Data: Labs Reviewed by me, Discussed with Patient and Discussed with Family
Impression/Plan
-
BRBPR 2/2 GI bleed
likely exacerbated by Eliquis
Gi consult
PPI
clears
never had cscope in past
consider CT if symptoms dont improve
deneis abdominal pain
monitor hgb
Hold Eliquis
gentle hydration
Paroxysmal atrial fibrillation
Currently in A-fib
Continue with amiodarone, metoprolol
Hold Eliquis
Follows up with Dr. riddle outpatient
left breast cancer, mastectomy/chemotherapy/radiation 2006
COPD, currently not in exacerbation
Continue with home meds
History of CHF with preserved EF
Continue to monitor
Not on Lasix anymore
Hypertension
Continue with metoprolol
Hyperlipidemia
hx of AAA
GERD
Chronic ambulatory dysfunction
DVT prophylaxis
SCDs
DNR, reviewed with daughter at bedside
I spent a total of 77 minutes with the patient or on the floor. More than 50% of this time involved counseling and coordination of care.
[2024-04-12 11:53] LABS: Urine Amorphous Seen; Urine Mucus Few
[2024-04-12 11:54] LABS: Urine Red Blood Cell 0-2 /HPF (0-2); Urine White Cell 0-2 /HPF (0-5)
[2024-04-12 11:55] LABS: Urine Bacteria Many (Negative)
[2024-04-12] MEDS: PACERONE 200 MG PO (11:58)
[2024-04-12] MEDS: TOPROL XL 25 MG PO (11:59)
[2024-04-12] MEDS: NSS (PRESERVATIVE FREE) 10 ML IV (11:59)
[2024-04-12] MEDS: PROTONIX IV 40 MG IV (11:59)
--- NOTE | 2024-04-12 13:40 | CON.GI ---
Addendum entered and electronically signed by Elva Wilkes MD 04/12/24 16:39:
Correction to cardiovascular exam by resident irregularly irregular with systolic murmur
Original Note:
Consultation
-
Date/Time Consultation Requested: 04/12/2024,11:39
Date/Time Consultation Performed: 04/12/2024,13:42
Requesting Provider: Nikolai Bianchi
Performing Provider: Elva Wilkes
Reason for Consultation: BRBPR
Medical History
Chief Complaint / HPI
Chief Complaint: BRBPR
History of Present Illness:
Patient is an 89-year-old female with past medical history of atrial fibrillation, coronary artery disease S/P CABG, left-sided breast cancer, COPD who presented to the emergency department after she noticed blood in the toilet bowl. She is
accompanied by her daughter.
According to the patient she was in her usual state of health until this morning when she woke up to pee but when she got up she noticed blood in the toilet bowl and on the floor .She was not sure from where was the blood coming so she presented to
the emergency. She had only 1 episode and has had no bowel movement and no bleeding since then. She denies any abdominal pain, retching, fever or any previous episodes of bleeding. No dizziness or lightheadedness.
She has been consistently losing weight since August 2023 when she got admitted for paroxysmal atrial fibrillation and acute exacerbation of CHF. She is on Amiodarone, Metoprolol Eliquis for her atrial fibrillation and the dose was recently reduced
to 2.5 mg from 5 mg about 2 weeks ago. She denies using any kind of pain medications including naproxen, any personal or family history of stomach, liver, or colon cancer. She has never been tested for hepatitis but she denies any ascites,
hematemesis, altered mental status, or constipation.SHe used to smoke and drink 30 years ago but has not used them for more than 30 years now.
She recently travelled to [place] but denies any fever,diarrhea,nausea or vomiting during or after her stay on [facility].She never had a colonoscopy or endoscopy before, a colonoscopy was planned in 2019 but it could not be completed as she
developed tachycardia and arrhythmias so the prep was discontinued.
Past Medical History
Past Medical History: CHF (2D echo 08/31/2023: EF 50-55%, mild LVH, no wall abnormalities, diastolic function indeterminate, enlarged right ventricle, severely dilated atria ,severe MR, severe TR
pulm arterial pressure 50-55 mm/hg), HTN, Hypercholesterolemia and Other (AAA being monitored via yearly Ultrasound by the PCP)
Past Surgical History: Other (Left-sided breast cancer requiring mastectomy, radiation therapy 2009 CABG x 3 vessel 1997 Cataract extraction bilateral)
Social History
Tobacco: Former Smoker (former smoker 30 years 1 pack a day quit approximately 30 years ago)
Alcohol: None
Drug: None
Personal:
Living: With Family ((Daughter))
Family History
Family History: Reviewed & Not Pertinent
Allergies / Home Medications
Allergy/AdvReac Type Severity Reaction Status Date / Time
iron [Iron] Allergy Rash Verified 04/12/24 08:44
�Medication �Instructions �Recorded
atorvastatin 40 mg tablet 40 mg PO HS High Cholesterol 09/04/23
calcium 600 mg (as 1 tab PO BID Supplement 09/04/23
carbonate)-vitamin D3 10 mcg (400
unit) tablet (Calcium 600 + D(3))
cholecalciferol (vitamin D3) 25 25 mcg PO DAILY Supplement 09/04/23
mcg (1,000 unit) tablet
metoprolol succinate 25 mg 25 mg PO DAILY Blood Pressure 09/04/23
tablet,extended release 24 hr
rabeprazole 20 mg tablet,delayed 20 mg PO DAILY Gastrointestinal 09/04/23
release Issue
tiotropium bromide 18 mcg capsule 1 cap inhalation R DAILY 09/04/23
with inhalation device (Spiriva Lung/Breathing Issues
with HandiHaler)
amiodarone 200 mg tablet 200 mg PO DAILY afib 01/16/24
empagliflozin 10 mg tablet 10 mg PO DAILY 01/16/24
(Jardiance)
apixaban 2.5 mg tablet (Eliquis) 2.5 mg PO BID 04/12/24
docusate sodium 100 mg capsule 100 mg PO DAILYPRN PRN constipation 04/12/24
(Stool Softener)
therapeutic multivitamin 1 tab PO DAILY 04/12/24
Review of Systems
-
All other systems: A 12 pt ROS was Negative except as stated above in HPI
Vital Signs
Temp Pulse Resp BP Pulse Ox
98.5 F 100 19 144/91 96
04/12/24 08:39 04/12/24 13:15 04/12/24 13:15 04/12/24 13:00 04/12/24 13:15
Physical Exam
Exam
General: Comfortable, Poor Appetite and Other (Difficulty in hearing)
HEENT: Anicteric and Moist Mucous Membranes
Respiratory: Clear and Other (NO wheezes,ronchi or rales)
Cardiac: S1/S2, Regular Rhythm and Other (tachycardia)
GI: Soft, Non Tender and Normal Bowel Sounds
Rectal: Other (Done by ER Physician)
Skin: Warm and Dry
Neuro: Awake, Alert, Oriented and No Motor Deficits
Hematologic/Lymphatic: Other (Left axillary chronic Lymphedenopathy)
Psych: Calm
Results
WBC 6.8 10^3/uL (4.8-10.8) 04/12/24 09:01
Hgb 11.8 g/dL (12.0-16.0) L 04/12/24 09:01
Hct 36.7 % (37.0-47.0) L 04/12/24 09:01
MCV 94.8 fL (81.0-99.0) 04/12/24 09:01
Plt Count 186 10^3/uL (130-400) 04/12/24 09:01
Absolute Neuts (auto) 4.4 10^3/uL (1.4-6.5) 04/12/24 09:
PT 15.4 Sec (11.4-14.6) H 04/12/24 09:
INR 1.19 04/12/24 09:
APTT 31.0 Sec (23.4-35.0) 04/12/24 09:
Sodium 139 mmol/L (135-145) 04/12/24 09:
Potassium 3.7 mmol/L (3.5-5.1) 04/12/24 09:
Chloride 103 mmol/L (98-107) 04/12/24 09:
Carbon Dioxide 29 mmol/L (22-30) 04/12/24 09:
BUN 33 mg/dl (7-17) H 04/12/24 09:
Creatinine 1.3 mg/dL (0.6-1.0) H 04/12/24 09:
Calcium 8.9 mg/dl (8.4-10.2) 04/12/24 09:
Total Bilirubin 0.5 mg/dl (0.2-1.3) 04/12/24 09:
AST 45 U/L (14-36) H 04/12/24 09:
ALT 42 U/L (0-35) H 04/12/24 09:
Alkaline Phosphatase 125 U/L (38-126) 04/12/24 09:
Diagnostic Image Results:None
Prior GI Procedures:
EGD:
Colonoscopy:
Assessment / Plan
-
IMPRESSION
An 89-year-old female with past history of paroxysmal atrial fibrillation, CABG in 1997, hyperlipidemia's, hypertension presents to the emergency with bright red bleeding from rectum that is painless. No history of chronic hepatitis, chronic
alcoholism, decompensated liver disease, personal or family history of colon cancer and never had a screening colonoscopy.
On Eliquis 2.5 mg twice daily (dose reduced from 5 mg 2 weeks ago)
Bright red bleed that is painless
Atherosclerotic risk factors present
No stigmata of CLD/alcoholism
ASSESSMENT/PLAN
Based on patient's past medical history and current presentation the differential diagnoses include
Diverticulitis/diverticular bleed
Ischemic colitis
To a lesser degree could be related to infectious colitis, varices, telangiectasias, AVM
Keep monitoring for any further bleed/bowel movements with blood
Monitor hemoglobin
Plan CT angiography in case of another heavy bleed through rectum
Hepatitis Panel
Colonoscopy once the bleed settles can be planned on outpatient basis if the patient agrees
-
-
Thank you for consultation and allowing me to participate in the patient's care. Please call the recreation program specialist GI physician during the after hours with any questions or concerns.
[2024-04-12] MEDS: NSS 1000 IV (14:56)
[2024-04-12] MEDS: LIPITOR 40 MG PO (21:56)
[2024-04-12] MEDS: OSCAL 500 + D 500 MG PO (21:57)
[2024-04-13 03:38] VITALS: BP 140/97
[2024-04-13 06:00] VITALS: BMI 18.7
[2024-04-13 07:21] LABS: ALT (SGPT) 34 U/L (0-35); AST (SGOT) 36 U/L (14-36); Albumin 3.3 g/dl (3.5-5.0); Alkaline Phosphatase 125 U/L (38-126); Blood Urea Nitrogen 20 mg/dl (7-17); Calcium 8.4 mg/dl (8.4-10.2); Carbon Dioxide 27 mmol/L (22-30); Chloride 106 mmol/L (98-107); Direct Bilirubin 0.1 mg/dl (0.0-0.4); Estimated Creatinine Clearance 32 ml/min; Glucose 116 mg/dl (70-99); Potassium 3.8 mmol/L (3.5-5.1); Sodium 142 mmol/L (135-145); Total Bilirubin 0.8 mg/dl (0.2-1.3); Total Protein 5.7 g/dl (6.3-8.2); eGFR 54.19
[2024-04-13 07:38] LABS: % Basophils 0.4 % (0-2); % Eosinophils 0.7 % (0-6); % Immature Granulocytes 0.6 % (0-0.5); % Lymphocytes 18.2 % (20.5-51.1); % Monocytes 12.3 % (1.7-9.3); % Neutrophils 67.8 % (42.2-75.2); Absolute Eosinophils 0.1 10^3/uL (0-0.7); Absolute Immature Granulocytes 0.1 10^3/uL (0-0.05); Absolute Lymphocytes 1.5 10^3/uL (1.2-3.4); Absolute Neutrophils 5.5 10^3/uL (1.4-6.5); Hematocrit 37.8 % (37.0-47.0); Hemoglobin 11.5 g/dL (12.0-16.0); Mean Corp Hgb Conc. 30.4 g/dL (33.0-37.0); Mean Corpuscular Volume 95.5 fL (81.0-99.0); Mean Platelet Volume 10.5 fL (7.4-10.4); Nucleated Red Blood Cells % 0 %; Platelet Count 184 10^3/uL (130-400); Red Blood Cell Count 3.96 10^6/uL (4.20-5.40); White Blood Cell Count 8.1 10^3/uL (4.8-10.8)
[2024-04-13] MEDS: SPIRIVA RESPIMAT 2.5 MCG 2 PUFF INH (07:57)
[2024-04-13 08:47] VITALS: BP 140/84
[2024-04-13] MEDS: PACERONE 200 MG PO (09:35)
[2024-04-13] MEDS: OSCAL 500 + D 500 MG PO ×2 (09:35→21:22)
[2024-04-13] MEDS: VITAMIN D3 (cholecalciferol) 25 MCG PO (09:35)
[2024-04-13] MEDS: PROTONIX IV 40 MG IV (09:36)
[2024-04-13] MEDS: THERAGRAN 1 TABLET PO (09:36)
[2024-04-13] MEDS: NSS (PRESERVATIVE FREE) 10 ML IV (09:36)
[2024-04-13] MEDS: TOPROL XL 25 MG PO (09:36)
[2024-04-13 11:21] VITALS: BP 138/84
--- NOTE | 2024-04-13 11:47 | W.PN.HOSP.TC ---
Today's Communication/Plan
-
monitor vitals
see plan
monitor hgb
hold eliquis for now; restart and monitor if ok with GI
cw amio,metoprolol
Assessment / Plan
Assessment / Plan
General: Well Nourished and No Apparent Distress
HEENT: Anicteric and Moist mucous membranes
Respiratory: Clear and Non Labored Respirations; No Wheezes
Cardiac: S1/S2 and Irregular Rhythm
GI: Soft, Non Tender and Non Distended
Genito-urinary: No Sierra
Musculoskeletal: No Edema
Neuro: Awake, Alert and Oriented
Psych: Calm
BRBPR 2/2 GI bleed
likely exacerbated by Eliquis
Gi following, monitor hgb. patient does not appear to want any colonoscopy
PPI
clears; advance diet if ok with GI and does not want any scope
never had cscope in past
consider CT if symptoms dont improve
denies abdominal pain
monitor hgb
Hold Eliquis
Paroxysmal atrial fibrillation
Currently in A-fib; has had cardioversion in past. currently denies any chest pain, palpitation
Continue with amiodarone, metoprolol
Hold Eliquis
Follows up with Dr. riddle outpatient
left breast cancer, mastectomy/chemotherapy/radiation 2006
COPD, currently not in exacerbation
Continue with home meds
History of CHF with preserved EF
Continue to monitor
Not on Lasix anymore
Hypertension
Continue with metoprolol
Hyperlipidemia
hx of AAA
GERD
Chronic ambulatory dysfunction
DVT prophylaxis
SCDs
DNR, reviewed with daughter at bedside
Anticipated Discharge: Within 24 hours
Subjective/Interval History
-
Date of Service: April 13, 2024
denies pain
Objective Data
-
Labs:
Laboratory Results
04/13/24
05:51
WBC 8.1
Hgb 11.5 L
Hct 37.8
Plt Count 184
Sodium 142
Potassium 3.8
Chloride 106
Carbon Dioxide 27
BUN 20 H
Creatinine 1.0
Glucose 116 H
Calcium 8.4
Total Bilirubin 0.8
AST 36
ALT 34
Alkaline Phosphatase 125
Vital Signs:
Vital Signs
Temp Pulse Resp BP Pulse Ox
97.9 F 113 19 140/84 94
04/13/24 08:47 04/13/24 08:47 04/13/24 08:47 04/13/24 08:47 04/13/24 08:47
I&O
04/12/24 04/13/24 04/14/24
06:59 06:59 06:59
Intake Total 860 / 860
Balance 860 / 860
--- NOTE | 2024-04-13 14:34 | W.PN.GI.CBS2 ---
Today's Communication / Plan
-
low residue diet
monitor hb
Assessment / Plan
-
painless lower GI bleed with stable hemoglobin and hemodynamically stable most likely etiology is diverticular bleed and less likely related to possible angioectasias doubt ischemic colitis.
no further bleeding
If she does have further episodes will get an emergent CTA.
Patient does not want to pursue colonoscopy since she was unable to tolerate the bowel prep in the past and given her age
Mildly elevated AST and ALT normalized on repeat okay to continue statin
history of hiatal hernia and GERD continue rabeprazole
Continue to hold Eliquis today and advance diet to low-fat diet if no further bleeding tomorrow could possibly DC home and restart Eliquis if still clinically indicated in 2 days
Subjective
Subjective
Date of Service: April 13, 2024
No further bleeding and hemoglobin remained stable off Eliquis
Objective
Data Reviewed
Laboratory Data:
Laboratory Results
04/13/24 05:51
04/13/24 05:51
Laboratory Results
PT 15.4 Sec (11.4-14.6) H 04/12/24 09:01
INR 1.19 04/12/24 09:01
APTT 31.0 Sec (23.4-35.0) 04/12/24 09:01
Total Bilirubin 0.8 mg/dl (0.2-1.3) 04/13/24 05:51
AST 36 U/L (14-36) 04/13/24 05:51
ALT 34 U/L (0-35) 04/13/24 05:51
Alkaline Phosphatase 125 U/L (38-126) 04/13/24 05:51
Vital Signs and I&O:
Vital Signs
Temp Pulse Resp BP Pulse Ox
97.9 F 113 19 140/84 94
04/13/24 08:47 04/13/24 08:47 04/13/24 08:47 04/13/24 08:47 04/13/24 08:47
I&O
04/12/24 04/13/24 04/14/24
06:59 06:59 06:59
Intake Total 860 / 860
Balance 860 / 860
Physical Exam
Physical Exam
Cardiology: Irregular Rate/Rhythm and Murmur (Systolic murmur)
Pulmonary: Clear
GI: Soft, Non Distended, Non Tender and Normal Bowel Sounds
[2024-04-13 16:38] VITALS: BP 121/83
--- NOTE | 2024-04-13 18:00 | PTCARENOTE ---
Patient's daughter called this morning for an update before hospitalists rounded, daughters name and number taken for a call back. Daughter called again in the afternoon, very agitated stating ' I didn't receive a call from the doctor, I wanted to
be on speak phone when the doctor was in the room, I didn't get a call back from the nurse'. Daughter given update on POC for patient.
[2024-04-13 19:00] VITALS: BP 123/81
[2024-04-13] MEDS: LIPITOR 40 MG PO (21:22)
[2024-04-13 23:33] VITALS: BP 118/76
[2024-04-14] VITALS (8 sets, daily range): BP systolic 117–133; BP diastolic 80–91; PULSE 111; O2SAT 94
[2024-04-14 06:58] LABS: % Basophils 0.5 % (0-2); % Eosinophils 0.5 % (0-6); % Immature Granulocytes 0.9 % (0-0.5); % Lymphocytes 13.4 % (20.5-51.1); % Neutrophils 71.7 % (42.2-75.2); Absolute Immature Granulocytes 0.1 10^3/uL (0-0.05); Absolute Neutrophils 5.6 10^3/uL (1.4-6.5); Hemoglobin 10.8 g/dL (12.0-16.0); Mean Corp Hgb Conc. 30.9 g/dL (33.0-37.0); Mean Corpuscular Hgb 29.1 pg (27.0-31.0); Mean Corpuscular Volume 94.3 fL (81.0-99.0); Mean Platelet Volume 10.2 fL (7.4-10.4); Nucleated Red Blood Cells % 0 %; Platelet Count 149 10^3/uL (130-400); Red Blood Cell Count 3.71 10^6/uL (4.20-5.40); Red Cell Dist. Width 15.1 % (11.5-14.5); White Blood Cell Count 7.8 10^3/uL (4.8-10.8)
[2024-04-14 07:33] LABS: Blood Urea Nitrogen 19 mg/dl (7-17); Calcium 8.5 mg/dl (8.4-10.2); Carbon Dioxide 29 mmol/L (22-30); Chloride 103 mmol/L (98-107); Estimated Creatinine Clearance 36 ml/min; Glucose 134 mg/dl (70-99); Potassium 3.7 mmol/L (3.5-5.1); Sodium 138 mmol/L (135-145); eGFR > 60.00
[2024-04-14] MEDS: SPIRIVA RESPIMAT 2.5 MCG 2 PUFF INH (08:29)
[2024-04-14] MEDS: OSCAL 500 + D 500 MG PO ×2 (09:16→20:19)
[2024-04-14] MEDS: VITAMIN D3 (cholecalciferol) 25 MCG PO (09:16)
[2024-04-14] MEDS: THERAGRAN 1 TABLET PO (09:16)
[2024-04-14] MEDS: PACERONE 200 MG PO (09:16)
[2024-04-14] MEDS: TOPROL XL 25 MG PO ×2 (09:16→20:18)
[2024-04-14] MEDS: NSS (PRESERVATIVE FREE) 10 ML IV (09:16)
[2024-04-14] MEDS: PROTONIX IV 40 MG IV (09:17)
--- NOTE | 2024-04-14 09:56 | CM ---
Initial assessment completed at the bedside
IMM benefit explained; form signed @ [id number]
Pharmacy verified: [facility] @ [address] [facility]
Patient lives with her daughter in a multilevel home; no steps to enter; 15 steps between floor; railing on stairs; her 2nd floor bathroom has stall shower with grab bar and seat
PLOF: independent on stairs and with ADLs; ambulates with a Rollator or a Rolling Walker
No other DME
SNF utilization > 5 yrs ago; no home health utilization
Daughter will transport home
Plan: discharge to home; CM will monitor for needs
--- NOTE | 2024-04-14 11:50 | W.PN.HOSP.TC ---
Today's Communication/Plan
-
Monitor vital signs and see plan
Increase metoprolol to twice daily, continue with amiodarone
Monitor hemoglobin
PT/OT
Consider cardiology evaluation
Discussed with daughter over the phone
Assessment / Plan
Assessment / Plan
General: Well Nourished and No Apparent Distress
HEENT: Anicteric and Moist mucous membranes
Respiratory: Clear and Non Labored Respirations; No Wheezes
Cardiac: S1/S2 and Irregular Rhythm
GI: Soft, Non Tender and Non Distended
Genito-urinary: No Sierra
Musculoskeletal: No Edema
Neuro: Awake, Alert and Oriented
Psych: Calm
BRBPR 2/2 GI bleed
likely exacerbated by Eliquis
Gi following, monitor hgb. patient does not appear to want any colonoscopy
PPI
clears; advance diet if ok with GI and does not want any scope
never had cscope in past
consider CT if symptoms dont improve
denies abdominal pain
monitor hgb
Hold Eliquis for now; restart when ok with GI
Paroxysmal atrial fibrillation
Currently in A-fib with RVR; has had cardioversion in past. currently denies any chest pain
Continue with amiodarone, metoprolol; increase metoprolol
Hold Eliquis
Follows up with Dr. riddle outpatient
I spoke with daughter and it appears ablation was suggested in past
left breast cancer, mastectomy/chemotherapy/radiation 2006
COPD, currently not in exacerbation
Continue with home meds
History of CHF with preserved EF
Continue to monitor
Not on Lasix anymore
Hypertension
Continue with metoprolol
Hyperlipidemia
hx of AAA
GERD
Chronic ambulatory dysfunction
DVT prophylaxis
SCDs
DNR, reviewed with daughter at bedside
I spent a total of 51 minutes with the patient or on the floor. More than 50% of this time involved counseling and coordination of care.
Anticipated Discharge: Within 24 hours
Subjective/Interval History
-
Date of Service: April 14, 2024
denies chest pain
Objective Data
-
Labs:
Laboratory Results
04/14/24
06:37
WBC 7.8
Hgb 10.8 L
Hct 35.0 L
Plt Count 149
Sodium 138
Potassium 3.7
Chloride 103
Carbon Dioxide 29
BUN 19 H
Creatinine 0.9
Glucose 134 H
Calcium 8.5
Vital Signs:
Vital Signs
Temp Pulse Resp BP Pulse Ox
98.3 F 119 16 131/91 94
04/14/24 08:19 04/14/24 08:32 04/14/24 08:32 04/14/24 08:19 04/14/24 08:32
I&O
04/13/24 04/14/24 04/15/24
06:59 06:59 06:59
Intake Total 860 / 860 1140 / 1140
Balance 860 / 860 1140 / 1140
[2024-04-14] MEDS: KCL 20 MEQ PO (12:31)
--- NOTE | 2024-04-14 14:52 | W.PN.GI.CBS2 ---
Today's Communication / Plan
-
monitor HB
Ok to restart Eliquis in 2 days if no further bleeding
Assessment / Plan
-
painless lower GI bleed with stable hemoglobin and hemodynamically stable most likely etiology is diverticular bleed and less likely related to possible angioectasias doubt ischemic colitis.
no further bleeding
Patient does not want to pursue colonoscopy since she was unable to tolerate the bowel prep in the past and given her age
Mildly elevated AST and ALT normalized on repeat okay to continue statin
history of hiatal hernia and GERD continue rabeprazole
Continue to hold Eliquis and if no further bleeding can restart in 2 days
Okay to DC from GI perspective will sign off and will be available as needed
Subjective
Subjective
Date of Service: April 14, 2024
No further bleeding and hemoglobin remains relatively stable
Objective
Data Reviewed
Laboratory Data:
Laboratory Results
04/14/24 06:37
04/14/24 06:37
Laboratory Results
PT 15.4 Sec (11.4-14.6) H 04/12/24 09:01
INR 1.19 04/12/24 09:01
APTT 31.0 Sec (23.4-35.0) 04/12/24 09:01
Magnesium 2.0 mg/dl (1.6-2.3) 04/14/24 06:37
Total Bilirubin 0.8 mg/dl (0.2-1.3) 04/13/24 05:51
AST 36 U/L (14-36) 04/13/24 05:51
ALT 34 U/L (0-35) 04/13/24 05:51
Alkaline Phosphatase 125 U/L (38-126) 04/13/24 05:51
Vital Signs and I&O:
Vital Signs
Temp Pulse Resp BP Pulse Ox
97.4 F 128 19 120/81 96
04/14/24 11:54 04/14/24 11:54 04/14/24 11:54 04/14/24 11:54 04/14/24 11:54
I&O
04/13/24 04/14/24 04/15/24
06:59 06:59 06:59
Intake Total 860 / 860 1140 / 1140
Balance 860 / 860 1140 / 1140
Physical Exam
Physical Exam
Cardiology: Irregular Rate/Rhythm and Murmur (Systolic murmur)
Pulmonary: Clear
GI: Soft, Non Distended, Non Tender and Normal Bowel Sounds
[2024-04-14] MEDS: LIPITOR 40 MG PO (20:20)
[2024-04-15 03:00] VITALS: BP 121/86
[2024-04-15 06:00] VITALS: BMI 19.0
[2024-04-15 06:35] LABS: % Basophils 0.3 % (0-2); % Eosinophils 1.4 % (0-6); % Immature Granulocytes 0.7 % (0-0.5); % Lymphocytes 12.9 % (20.5-51.1); % Monocytes 11.1 % (1.7-9.3); % Neutrophils 73.6 % (42.2-75.2); Absolute Eosinophils 0.1 10^3/uL (0-0.7); Absolute Immature Granulocytes 0.1 10^3/uL (0-0.05); Absolute Monocytes 0.9 10^3/uL (0.1-0.6); Absolute Neutrophils 5.7 10^3/uL (1.4-6.5); Hemoglobin 10.5 g/dL (12.0-16.0); Mean Corp Hgb Conc. 31.8 g/dL (33.0-37.0); Mean Corpuscular Hgb 29.7 pg (27.0-31.0); Mean Corpuscular Volume 93.5 fL (81.0-99.0); Mean Platelet Volume 10.1 fL (7.4-10.4); Nucleated Red Blood Cells % 0 %; Platelet Count 144 10^3/uL (130-400); Red Blood Cell Count 3.53 10^6/uL (4.20-5.40); Red Cell Dist. Width 15.2 % (11.5-14.5); White Blood Cell Count 7.7 10^3/uL (4.8-10.8)
[2024-04-15 07:03] VITALS: BP 131/85
[2024-04-15] MEDS: SPIRIVA RESPIMAT 2.5 MCG 2 PUFF INH (07:27)
[2024-04-15 07:46] LABS: Blood Urea Nitrogen 22 mg/dl (7-17); Calcium 8.5 mg/dl (8.4-10.2); Carbon Dioxide 30 mmol/L (22-30); Chloride 104 mmol/L (98-107); Estimated Creatinine Clearance 36 ml/min; Glucose 112 mg/dl (70-99); Potassium 4.2 mmol/L (3.5-5.1); Sodium 139 mmol/L (135-145); eGFR > 60.00
[2024-04-15] MEDS: PACERONE 200 MG PO (08:17)
[2024-04-15] MEDS: OSCAL 500 + D 500 MG PO ×2 (08:17→20:38)
[2024-04-15] MEDS: VITAMIN D3 (cholecalciferol) 25 MCG PO (08:17)
[2024-04-15] MEDS: TOPROL XL 25 MG PO (08:17)
[2024-04-15] MEDS: THERAGRAN 1 TABLET PO (08:17)
[2024-04-15] MEDS: PROTONIX IV 40 MG IV (08:18)
[2024-04-15] MEDS: NSS (PRESERVATIVE FREE) 10 ML IV (08:18)
[2024-04-15 11:12] VITALS: BP 107/64
--- NOTE | 2024-04-15 11:21 | W.PN.HOSP.TC ---
Today's Communication/Plan
-
Monitor vital signs
see plan
Still in A-fib, continue Amio, metoprolol
Cardiology evaluation
PT/OT
Discussed with daughter over the phone
hold eliquis for another day per GI
Assessment / Plan
Assessment / Plan
General: Well Nourished and No Apparent Distress
HEENT: Anicteric and Moist mucous membranes
Respiratory: Clear and Non Labored Respirations; No Wheezes
Cardiac: S1/S2 and Irregular Rhythm
GI: Soft, Non Tender and Non Distended
Genito-urinary: No Sierra
Musculoskeletal: No Edema
Neuro: Awake, Alert and Oriented
Psych: Calm
BRBPR 2/2 GI bleed
likely exacerbated by Eliquis
Gi following, monitor hgb. patient does not appear to want any colonoscopy
PPI
diet advanced; does not want any scope
never had cscope in past
consider CT if symptoms dont improve
denies abdominal pain
monitor hgb
Hold Eliquis for now; restart when ok with GI
Paroxysmal atrial fibrillation
Currently in A-fib with RVR; has had cardioversion in past. currently denies any chest pain
Continue with amiodarone, metoprolol; increase metoprolol. HR still high. consult cardiology
Hold Eliquis until ok with GI; another day per GI
Follows up with Dr. riddle outpatient
I spoke with daughter and it appears ablation was suggested in past
left breast cancer, mastectomy/chemotherapy/radiation 2006
COPD, currently not in exacerbation
Continue with home meds
History of CHF with preserved EF
Continue to monitor
Not on Lasix anymore
Hypertension
Continue with metoprolol
Hyperlipidemia
hx of AAA
GERD
Chronic ambulatory dysfunction
DVT prophylaxis
SCDs
DNR, reviewed with daughter at bedside
PT/OT
Anticipated Discharge: 24 - 48 hours
Subjective/Interval History
-
Date of Service: April 15, 2024
denies pain
Objective Data
-
Labs:
Laboratory Results
04/15/24
06:25
WBC 7.7
Hgb 10.5 L
Hct 33.0 L
Plt Count 144
Sodium 139
Potassium 4.2
Chloride 104
Carbon Dioxide 30
BUN 22 H
Creatinine 0.9
Glucose 112 H
Calcium 8.5
Vital Signs:
Vital Signs
Temp Pulse Resp BP Pulse Ox
98.0 F 107 16 107/64 96
04/15/24 11:12 04/15/24 11:12 04/15/24 11:12 04/15/24 11:12 04/15/24 11:12
I&O
04/14/24 04/15/24 04/16/24
06:59 06:59 06:59
Intake Total 1140 / 1140 1080 / 1080
Balance 1140 / 1140 1080 / 1080
--- NOTE | 2024-04-15 13:22 | CON.CAR ---
Addendum entered and electronically signed by Lindsay Duff DO 04/15/24 16:22:
I saw and examined the patient.
The Purchasing Intern's note was reviewed and I agree with the note.
Comment: Patient seen and examined with cardiac PA. Patient came to [facility] Monday morning with painless BRBPR bleeding not requiring transfusion on Eliquis anticoagulation which has fortunately resolved not requiring transfusion. GI was consulted
however she has declined undergoing any procedures and does not wish to pursue colonoscopy. GI has signed off and have recommended not restarting Eliquis until tomorrow 04/16/2024. Cardiology consulted for recurrent asymptomatic rapid atrial
fibrillation. Patient lives with her daughter and son in law, her son in law is Dr. Bowen Townsend. Patient has a h/o CABG in 1997 and has a history of paroxysmal atrial fibrillation on amiodarone therapy since 2018 and anticoagulated with
Eliquis.she has no history of stroke/TIA. She follows with my colleague, Dr. Kelly. Additionally she has a history of coronary artery disease status post CABG in 1997 as well as chronic heart failure with preserved ejection fraction and severe MR
and TR not requiring diuretics. She had been maintaining sinus rhythm but at a routine office visit in August of this year she was noted to be in asymptomatic atrial fibrillation. She was arranged for an elective DCCV 09/07/23 which was transiently
successful and had another cardioversion 01/16/24. Patient was seen in the office for EP consultation with Dr. Jay Abernathy on 03/25/2024 and they discussed ablation, but it was felt that since the patient was largely asymptomatic with her AF that no
definitive plans were made. At the time of this EP appointment, she was in sinus rhythm. On Monday morning, she noted bright red blood after having a bowel movement and presented to [place] emergency department. Her last dose of Eliquis was
evening. Fortunately bleeding has resolved and they have signed off. Patient was noted to be in atypical atrial flutter/A. tach from the time of initial ECG in ER on 04/12/2024 and this has persisted throughout admission with rates
mostly controlled but at times into the 130s. Her usual dose of Toprol-XL 25 mg daily was initially held but restarted on 04/13/2024 and dose was increased to 25 mg twice daily starting 04/14/2024. Also her outpatient dose of amiodarone 20 mg daily
was continued. She is currently feeling well and anxious to return home. She denies chest pain or pressure, shortness of breath, palpitations, dizziness, abdominal pain, or any further bleeding.
General: No acute distress, AAOX3
Neck: Negative JVD
Heart: Irregularly irregular. Positive S1-S2. / SM
Lungs: CTA b/l, negative wheezes/rales/rhonchi
Abd: Positive BS, NT/ND, neg rebound/rigidity/guarding
Ext: no edema
Neuro: nonfocal
Plan:
Persistent atrial fibrillation/flutter previously on oral anticoagulation
-She is in asymptomatic atrial fibrillation with failed attempts at cardioversion in September and January and has had a recent EP evaluation to discuss ablation
-Will continue rate control strategy at this time
-Resume Eliquis anticoagulation, Eliquis 2.5 mg twice daily started tomorrow if no further bleeding and monitor hemoglobin closely.
-We briefly discussed Watchman procedure which she can discuss further with her outpatient supervisor press room in the office
-Will increase Toprol-XL to 37-1/2 mg twice daily and continue amiodarone.
Recent lower GI bleed, resolved
-Hemoglobin stable and no need for transfusion
-GI consult reviewed
-Patient has declined procedures such as colonoscopy
-Will resume Eliquis cautiously starting tomorrow with close monitoring of H&H
-Would continue PPI
History of chronic heart failure with preserved ejection fraction who is euvolemic and not requiring diuretic therapy
-Continue goal-directed medical therapy including Jardiance
Outpatient cardiac follow-up to be arranged.
Family updated by cardiac PA and all questions answered
We will sign off, recall if needed
Original Note:
Consultation
Consultation Request
Date/Time Consultation Requested: 04/15/24
Date/Time Consultation Performed: 04/15/24
Requesting Provider: Dr. Bianchi
Performing Provider: Dr. Duff
Reason for Consultation: Persistent Afib with rapid response, GIB on OAC
Medical History
-
History of Present Illness:
Patient came to [facility] Monday morning with bleeding and cardiology is now consulted for recurrent Afib in R. Patient lives with her daughter and son in law, her son in law is Dr. Bowen Townsend. Patient has a h/o CABG in 1997. Then in about 2018 she
had CV and amiodarone loading for Afib. Then at her Dr. Kelyl office visit 08/08/23 she was noted to be in Afib, but denied palpitations, chest pain or SOB. Patient then had CV 09/07/23. Patient recurred with Afib and had another CV 01/16/24. Patient
was seen in the office for EP consultation on 03/25/2024 and they discussed ablation, but it was felt that since the patient was largely asymptomatic with her AF that no definitive plans were made and of note patient was in SR at that time. Talked
with the patient's daughter, Kamini, by phone today and she tells me that in the interim the patient spent time reviewing the material provided to her after the 03/25/2024 OV and had started to decide on her own that she wanted to pursue ablation.
Then on Monday morning after using the bathroom she noted blood and came to ER. At this point they feel the patient likely has diverticular bleeding. The patient has not had a dose of Eliquis since night. Patient was noted to be in
atypical atrial flutter/A. tach from the time of initial ECG in ER on 04/12/2024 and this has persisted throughout admission. Her usual dose of Toprol-XL 25 mg daily was started again on 04/13/2024 and dose was increased to 25 mg twice daily
starting 04/14/2024. Also her outpatient dose of amiodarone 20 mg daily was continued. Patient denies any palpitations, but review of telemetry by me shows rapid rate up to 130 at times and again she is asymptomatic with this.
PMH:
Chronic Eliquis OAC
Persistent Afib/atypical flutter/tach
s/p CV 09/07/23, 01/16/24
Chronic amiodarone therapy
Chronic HFpEF
Severe MR/TR
h/o left sided thoracentesis 09/05/23
CAD
s/p CABG with AZAR to LAD, SCG to PDA, SVG to OM, SVG to distal OM and DVG to Diag 1997
HTN
h/o orthostasis and syncope 2018
Hyperlipidemia
RBBB
DM 2
Paralyzed left hemidiaphragm
Past Medical History
Past Medical History: Other (in HPI)
Past Surgical History: Cardiac (CABG 1997) and Gynecological (left mastectomy)
Social History
Tobacco: Former Smoker
Alcohol: None
Drug: None
Living: With Family (she lives with her daughter and son in law)
Family History
Family History: CAD
Allergies / Home Medications
Allergy/AdvReac Type Severity Reaction Status Date / Time
iron [Iron] Allergy Rash Verified 04/12/24 08:44
�Medication �Instructions �Recorded �Confirmed �Type
atorvastatin 40 mg tablet 40 mg PO HS High Cholesterol 09/04/23 04/12/24 History
calcium 600 mg (as 1 tab PO BID Supplement 09/04/23 04/12/24 History
carbonate)-vitamin D3 10 mcg (400
unit) tablet (Calcium 600 + D(3))
cholecalciferol (vitamin D3) 25 25 mcg PO DAILY Supplement 09/04/23 04/12/24 History
mcg (1,000 unit) tablet
metoprolol succinate 25 mg 25 mg PO DAILY Blood Pressure 09/04/23 04/12/24 History
tablet,extended release 24 hr
rabeprazole 20 mg tablet,delayed 20 mg PO DAILY Gastrointestinal 09/04/23 04/12/24 History
release Issue
tiotropium bromide 18 mcg capsule 1 cap inhalation R DAILY 09/04/23 04/12/24 History
with inhalation device (Spiriva Lung/Breathing Issues
with HandiHaler)
amiodarone 200 mg tablet 200 mg PO DAILY afib 01/16/24 04/12/24 History
empagliflozin 10 mg tablet 10 mg PO DAILY 01/16/24 04/12/24 History
(Jardiance)
apixaban 2.5 mg tablet (Eliquis) 2.5 mg PO BID 04/12/24 04/12/24 History
docusate sodium 100 mg capsule 100 mg PO DAILYPRN PRN constipation 04/12/24 04/12/24 History
(Stool Softener)
therapeutic multivitamin 1 tab PO DAILY 04/12/24 04/12/24 History
Review of Systems
-
History Source: Patient and Family (talked with her daughter, Kamini, by phone)
All other systems: Negative unless noted
Physical Exam
Vital Signs
Temp Pulse Resp BP Pulse Ox
98.0 F 107 16 107/64 96
04/15/24 11:12 04/15/24 11:12 04/15/24 11:12 04/15/24 11:12 04/15/24 11:12
GEN: NAD. AAOx3
HEENT: EOMI, MMM, wearing glasses
LUNGS: Decreased BS left worse than right base. No wheeze
CV: Afib on tele. Irreg irreg, S1/S2, 1/6 basal systolic murmur
ABD: soft, BS+, NT, ND
EXT: +Trace B/L LE edema. No clubbing, cyanosis or lesions B/L
NEURO: Gross non-focal
SKIN: Warm, dry and pink. No rash
Lab Results
04/15/24 06:25
04/15/24 06:25
Impression / Plan
-
PCP: Dr. Townsend
Cardiology: Dr. CHARLA Kelly
Impression:
Admitted with bright red blood 04/12/24
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
Chronic Eliquis OAC
Persistent Afib/atypical flutter/tach
s/p CV 09/07/23, 01/16/24
Chronic amiodarone therapy
Chronic HFpEF
Severe MR/TR
h/o left sided thoracentesis 09/05/23
CAD
s/p CABG with AZAR to LAD, SCG to PDA, SVG to OM, SVG to distal OM and DVG to Diag 1997
HTN
h/o orthostasis and syncope 2018
Hyperlipidemia
RBBB
DM 2
Paralyzed left hemidiaphragm
Echo 08/31/23: EF 50-55%, mild conc LVH, enlarged RV size, sev MR, aortic sclerosis without stenosis, sev TR with PAP 50-55 mmHg, no pericardial effusion
Echo 12/08/23: EF 53%, mild concentric LVH, stage II diastolic dysfunction, normal RV size/function, moderate to severe MR, trace aortic regurgitation
Plan:
-Patient came to [facility] Monday morning with bleeding and cardiology is now consulted for recurrent Afib in RVR. Patient lives with her daughter and son in law, her son in law is Dr. Bowen Townsend. Patient has a h/o CABG in 1997. Then in about 2018
she had CV and amiodarone loading for Afib. Then at her Dr. Kelly office visit 08/08/23 she was noted to be in Afib, but denied palpitations, chest pain or SOB. Patient then had CV 09/07/23. Patient recurred with Afib and had another CV 01/16/24.
Patient was seen in the office for EP consultation on 03/25/2024 and they discussed ablation, but it was felt that since the patient was largely asymptomatic with her AF that no definitive plans were made and of note patient was in SR at that time.
Talked with the patient's daughter, Kamini, by phone today and she tells me that in the interim the patient spent time reviewing the material provided to her after the 03/25/2024 OV and had started to decide on her own that she wanted to pursue
ablation. Then on Monday morning after using the bathroom she noted blood and came to ER. At this point they feel the patient likely has diverticular bleeding. The patient has not had a dose of Eliquis since night. Patient was noted
to be in atypical atrial flutter/A. tach from the time of initial ECG in ER on 04/12/2024 and this has persisted throughout admission. Her usual dose of Toprol-XL 25 mg daily was started again on 04/13/2024 and dose was increased to 25 mg twice
daily starting 04/14/2024. Also her outpatient dose of amiodarone 20 mg daily was continued. Patient denies any palpitations, but review of telemetry by me shows rapid rate up to 130 at times and again she is asymptomatic with this.
-ECGs and telemetry reviewed by me, patient with A. tach/atypical flutter/fib heart rates rapid up to 120-130 at times.
-Patient with GIB on admission and has declined colonoscopy. Eliquis has been on hold for 4 days and set to resume 04/16/24. Pending outcome the patient will resume her usual dose of Eliquis 2.5 mg BID 04/16/24 AM.
-D/W patient's daughter, Kamini, by phone today for about 18 minutes that if patient has recurrent GIB one option could be consideration of watchman device. Reviewed watchman device in broad terms. Also talked about the need to be able to tolerate OAC
for a period of time surrounding watchman implant.
-Reviewed recurrent atrial arrhythmia and patient seems to be asymptomatic. Discussed plans for rate control with higher dose Toprol XL and plans to continue usual dose of amiodarone 200 mg daily.
-Will try increasing dose of Toprol XL to 37.5 mg BID. Patient was taking Toprol XL 25 mg daily prior to admission.
-Patient is not a candidate for ablation of CV at this time due to GIB.
-Patient with h/o chronic HFpEF. Patient does not take a daily diuretic due to h/o CKD and syncope while on daily dosing Lasix. Patient does not examine in acute HF.
[2024-04-15 15:00] VITALS: BP 115/77
[2024-04-15 19:00] VITALS: BP 134/94
[2024-04-15] MEDS: TOPROL XL 37.5 MG PO (20:38)
[2024-04-15] MEDS: LIPITOR 40 MG PO (20:40)
[2024-04-15 23:00] VITALS: BP 107/70
[2024-04-16] VITALS (7 sets, daily range): BP systolic 117–132; BP diastolic 67–91; PULSE 99; O2SAT 93; BMI 19.1
[2024-04-16 06:37] LABS: % Basophils 0.5 % (0-2); % Immature Granulocytes 0.7 % (0-0.5); % Lymphocytes 13.7 % (20.5-51.1); % Monocytes 10.1 % (1.7-9.3); Absolute Eosinophils 0.1 10^3/uL (0-0.7); Absolute Immature Granulocytes 0.1 10^3/uL (0-0.05); Absolute Lymphocytes 1.1 10^3/uL (1.2-3.4); Absolute Monocytes 0.8 10^3/uL (0.1-0.6); Absolute Neutrophils 5.9 10^3/uL (1.4-6.5); Hematocrit 32.6 % (37.0-47.0); Hemoglobin 10.4 g/dL (12.0-16.0); Mean Corp Hgb Conc. 31.9 g/dL (33.0-37.0); Mean Corpuscular Hgb 29.8 pg (27.0-31.0); Mean Corpuscular Volume 93.4 fL (81.0-99.0); Mean Platelet Volume 10.4 fL (7.4-10.4); Nucleated Red Blood Cells % 0 %; Platelet Count 147 10^3/uL (130-400); Red Blood Cell Count 3.49 10^6/uL (4.20-5.40); Red Cell Dist. Width 15.4 % (11.5-14.5)
[2024-04-16 07:09] LABS: Blood Urea Nitrogen 23 mg/dl (7-17); Calcium 8.5 mg/dl (8.4-10.2); Carbon Dioxide 25 mmol/L (22-30); Chloride 103 mmol/L (98-107); Estimated Creatinine Clearance 37 ml/min; Glucose 128 mg/dl (70-99); Sodium 136 mmol/L (135-145); eGFR > 60.00
[2024-04-16] MEDS: SPIRIVA RESPIMAT 2.5 MCG 2 PUFF INH (07:44)
[2024-04-16] MEDS: OSCAL 500 + D 500 MG PO ×2 (08:54→21:08)
[2024-04-16] MEDS: VITAMIN D3 (cholecalciferol) 25 MCG PO (08:54)
[2024-04-16] MEDS: THERAGRAN 1 TABLET PO (08:54)
[2024-04-16] MEDS: TOPROL XL 37.5 MG PO (08:54)
[2024-04-16] MEDS: ELIQUIS 2.5 MG PO ×2 (08:54→21:07)
[2024-04-16] MEDS: PROTONIX 40 MG PO (08:55)
[2024-04-16] MEDS: PACERONE 200 MG PO (08:55)
--- NOTE | 2024-04-16 11:01 | PN.CDI ---
CDI
- -
CDI:
Physician Documentation Request
Admit Date: 04/12/24 11:53
Dear Doctor Arias,
Please review the following and provide your response in the progress notes.
Clinical Indicators:
Height: 5' 6'
Weight: 118 lbs
BMI:19.1
Selected Entries
04/13/24
06:00 04/15/24
06:00 04/16/24
06:00
Body Mass Index (BMI) 18.7 19.0 19.1
If possible, please provide an associated diagnosis related to the abnormal BMI, such as:
Underweight
Cachectic
BMI is not significant
Other
BMI < or = to 19.9
Underweight
Weight Loss
Cachectic
Anorexia
Use of terms such as suspected, likely, concern for, or probable (associated with a specific diagnosis that is being evaluated, monitored, or treated as if it exists) are acceptable and can be coded in the inpatient setting, when documented at the
time of discharge.
Thank you,
Cheli Ann RN, BSN
CDI Specialist
Available via [employer] text
Please use your independent medical judgment in providing your response.
--- NOTE | 2024-04-16 11:29 | W.PN.HOSP.TC ---
Today's Communication/Plan
-
monitor vitals
see plan
cw metoprolol
restart eliquis
PT/OT
DC planning
Discussed with daughter at bedside
Assessment / Plan
Assessment / Plan
General: Well Nourished and No Apparent Distress
HEENT: Anicteric and Moist mucous membranes
Respiratory: Clear and Non Labored Respirations; No Wheezes
Cardiac: S1/S2 and Irregular Rhythm
GI: Soft, Non Tender and Non Distended
Genito-urinary: No Sierra
Musculoskeletal: No Edema
Neuro: Awake, Alert and Oriented
Psych: Calm
BRBPR 2/2 GI bleed
likely exacerbated by Eliquis
Gi following, monitor hgb. patient does not appear to want any colonoscopy
PPI
diet advanced; does not want any scope
never had cscope in past
consider CT if symptoms dont improve
denies abdominal pain
monitor hgb
Eliquis restarted
Persistent atrial fibrillation
Currently in A-fib with RVR; has had cardioversion in past. currently denies any chest pain
Continue with amiodarone, metoprolol; increased metoprolol. HR still high. cardiology signed off
cw eliquis
Follows up with Dr. riddle outpatient
I spoke with daughter and it appears ablation was suggested in past
left breast cancer, mastectomy/chemotherapy/radiation 2006
COPD, currently not in exacerbation
Continue with home meds
History of CHF with preserved EF
Continue to monitor
Not on Lasix anymore
Hypertension
Continue with metoprolol
Hyperlipidemia
hx of AAA
GERD
Chronic ambulatory dysfunction
DVT prophylaxis
SCDs
DNR, reviewed with daughter at bedside
PT/OT; daughter and patient Interested in SNF. sporting goods sales manager notified
Anticipated Discharge: Within 24 hours
Subjective/Interval History
-
Date of Service: April 16, 2024
denies pain
Objective Data
-
Labs:
Laboratory Results
04/16/24
06:25
WBC 8.0
Hgb 10.4 L
Hct 32.6 L
Plt Count 147
Sodium 136
Potassium 4.0
Chloride 103
Carbon Dioxide 25
BUN 23 H
Creatinine 0.9
Glucose 128 H
Calcium 8.5
Vital Signs:
Vital Signs
Temp Pulse Resp BP Pulse Ox
98.1 F 110 16 125/80 92
04/16/24 07:30 04/16/24 07:45 04/16/24 07:45 04/16/24 08:54 04/16/24 07:45
I&O
04/15/24 04/16/24 04/17/24
06:59 06:59 06:59
Intake Total 1080 / 1080 1680 / 1680
Balance 1080 / 1080 1680 / 1680
--- NOTE | 2024-04-16 14:03 | W.PN.CARDCBS ---
Today's Communication / Plan
-
Increase Toprol to 50 mg p.o. twice daily
Eliquis to be restarted today
Could consider eventual Watchman evaluation especially if recurrent bleeds on Eliquis
Impression / Plan
-
PCP: Dr. Townsend
Cardiology: Dr. CHARLA Kelly
Impression:
Admitted with bright red blood 04/12/24
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
Chronic Eliquis OAC
Persistent Afib/atypical flutter/tach
s/p CV 09/07/23, 01/16/24
Chronic amiodarone therapy
Chronic HFpEF
Severe MR/TR
h/o left sided thoracentesis 09/05/23
CAD
s/p CABG with AZAR to LAD, SCG to PDA, SVG to OM, SVG to distal OM and DVG to Diag 1997
HTN
h/o orthostasis and syncope 2018
Hyperlipidemia
RBBB
DM 2
Paralyzed left hemidiaphragm
Echo 08/31/23: EF 50-55%, mild conc LVH, enlarged RV size, sev MR, aortic sclerosis without stenosis, sev TR with PAP 50-55 mmHg, no pericardial effusion
Echo 12/08/23: EF 53%, mild concentric LVH, stage II diastolic dysfunction, normal RV size/function, moderate to severe MR, trace aortic regurgitation
Plan:
Heart rate control still little suboptimal
Will increase metoprolol to 50 mg p.o. twice daily
Eliquis to be resumed today
Patient is not a candidate for ablation of A-fib at this time due to GIB.
Might consider eventual consideration for Watchman if tolerates restart of Eliquis
Patient with h/o chronic HFpEF. Patient does not take a daily diuretic due to h/o CKD and syncope while on daily dosing Lasix. Patient does not examine in acute HF.
Discussed with daughter at bedside
PREADMIT DATAA
-Patient came to [facility] Monday morning with bleeding and cardiology is now consulted for recurrent Afib in RVR. Patient lives with her daughter and son in law, her son in law is Dr. Bowen Townsend. Patient has a h/o CABG in 1997. Then in about 2018
she had CV and amiodarone loading for Afib. Then at her Dr. Kelly office visit 08/08/23 she was noted to be in Afib, but denied palpitations, chest pain or SOB. Patient then had CV 09/07/23. Patient recurred with Afib and had another CV 01/16/24.
Patient was seen in the office for EP consultation on 03/25/2024 and they discussed ablation, but it was felt that since the patient was largely asymptomatic with her AF that no definitive plans were made and of note patient was in SR at that time.
Talked with the patient's daughter, Kamini, by phone today and she tells me that in the interim the patient spent time reviewing the material provided to her after the 03/25/2024 OV and had started to decide on her own that she wanted to pursue
ablation. Then on Monday morning after using the bathroom she noted blood and came to ER. At this point they feel the patient likely has diverticular bleeding. The patient has not had a dose of Eliquis since night. Patient was noted
to be in atypical atrial flutter/A. tach from the time of initial ECG in ER on 04/12/2024 and this has persisted throughout admission. Her usual dose of Toprol-XL 25 mg daily was started again on 04/13/2024 and dose was increased to 25 mg twice
daily starting 04/14/2024. Also her outpatient dose of amiodarone 20 mg daily was continued. Patient denies any palpitations, but review of telemetry by me shows rapid rate up to 130 at times and again she is asymptomatic with this.
Progress Note - Accounts Supervisor
Subjective
Date of Service: April 16, 2024
No complaints
Objective
Labs:
04/16/24 06:25
04/16/24 06:25
Labs
Hgb 10.4 g/dL (12.0-16.0) L 04/16/24 06:25
Hct 32.6 % (37.0-47.0) L 04/16/24 06:25
Plt Count 147 10^3/uL (130-400) 04/16/24 06:25
PT 15.4 Sec (11.4-14.6) H 04/12/24 09:01
INR 1.19 04/12/24 09:01
APTT 31.0 Sec (23.4-35.0) 04/12/24 09:01
Sodium 136 mmol/L (135-145) 04/16/24 06:25
Potassium 4.0 mmol/L (3.5-5.1) 04/16/24 06:25
BUN 23 mg/dl (7-17) H 04/16/24 06:25
Creatinine 0.9 mg/dL (0.6-1.0) 04/16/24 06:25
Glucose 128 mg/dl (70-99) H 04/16/24 06:25
Vital Signs and I&O:
Vital Signs
Temp Pulse Resp BP Pulse Ox
97.6 F 102 18 121/71 96
04/16/24 11:37 04/16/24 11:37 04/16/24 11:37 04/16/24 11:37 04/16/24 11:37
Vital Signs
Temp Pulse Resp BP Pulse Ox
97.6 F 102 18 121/71 96
04/16/24 11:37 04/16/24 11:37 04/16/24 11:37 04/16/24 11:37 04/16/24 11:37
Intake & Output
04/14/24 04/15/24 04/16/24 04/17/24
06:59 06:59 06:59 06:59
Intake Total 1140 / 1140 1080 / 1080 1680 / 1680
Balance 1140 / 1140 1080 / 1080 1680 / 1680
Physical Exam
Physical Exam
General: Well developed, well nourished in NAD.
Neck: Supple, no JVD, HJR, carotids +2 B/L, no bruits bilaterally.
Heart: Non displaced PMI, irregular, no murmurs, No S3, S4, no rubs.
Lungs: Clear to auscultation bilaterally, no wheeze, rhonchi, rubs bilaterally,
normal expiratory phase.
Extremities: No clubbing, cyanosis or edema bilaterally.
Neuro: Grossly nonfocal, awake, alert and oriented x3.
--- NOTE | 2024-04-16 16:12 | CM ---
Received notification from RN that patient wanted to talk to CM. Met with patient who put her daughter on speaker phone. Patient's daughter stated that she would like for patient to go to SNF and patient was agreeable. She stated that she wants
referrals sent to, [facility]. Will fax through [employer] and follow back up with patient's daughter.
Plan: Case management will continue to follow and assist with discharge planning. SNF when cleared for discharge.
[2024-04-16] MEDS: LIPITOR 40 MG PO (21:08)
[2024-04-16] MEDS: TOPROL XL 50 MG PO (21:08)
[2024-04-17 03:43] VITALS: BP 114/70
[2024-04-17 06:00] VITALS: BMI 19.2
[2024-04-17 07:00] VITALS: BP 130/72
[2024-04-17 07:52] LABS: % Basophils 0.4 % (0-2); % Eosinophils 1.2 % (0-6); % Immature Granulocytes 0.4 % (0-0.5); % Lymphocytes 12.7 % (20.5-51.1); % Neutrophils 74.3 % (42.2-75.2); Absolute Eosinophils 0.1 10^3/uL (0-0.7); Absolute Lymphocytes 0.9 10^3/uL (1.2-3.4); Absolute Monocytes 0.8 10^3/uL (0.1-0.6); Absolute Neutrophils 5.2 10^3/uL (1.4-6.5); Hematocrit 32.4 % (37.0-47.0); Hemoglobin 10.6 g/dL (12.0-16.0); Mean Corp Hgb Conc. 32.7 g/dL (33.0-37.0); Mean Corpuscular Hgb 30.8 pg (27.0-31.0); Mean Corpuscular Volume 94.2 fL (81.0-99.0); Nucleated Red Blood Cells % 0 %; Platelet Count 141 10^3/uL (130-400); Red Blood Cell Count 3.44 10^6/uL (4.20-5.40); Red Cell Dist. Width 15.5 % (11.5-14.5); White Blood Cell Count 6.9 10^3/uL (4.8-10.8)
[2024-04-17] MEDS: OSCAL 500 + D 500 MG PO (08:23)
[2024-04-17] MEDS: PACERONE 200 MG PO (08:23)
[2024-04-17] MEDS: ELIQUIS 2.5 MG PO (08:23)
[2024-04-17] MEDS: THERAGRAN 1 TABLET PO (08:24)
[2024-04-17] MEDS: TOPROL XL 50 MG PO (08:24)
[2024-04-17] MEDS: VITAMIN D3 (cholecalciferol) 25 MCG PO (08:24)
[2024-04-17] MEDS: PROTONIX 40 MG PO (08:24)
[2024-04-17] MEDS: SPIRIVA RESPIMAT 2.5 MCG INH (08:25)
[2024-04-17 08:30] LABS: Blood Urea Nitrogen 21 mg/dl (7-17); Calcium 8.4 mg/dl (8.4-10.2); Carbon Dioxide 27 mmol/L (22-30); Chloride 103 mmol/L (98-107); Estimated Creatinine Clearance 37 ml/min; Glucose 124 mg/dl (70-99); Potassium 3.7 mmol/L (3.5-5.1); Sodium 138 mmol/L (135-145); eGFR > 60.00
--- NOTE | 2024-04-17 10:37 | W.PN.CARDCBS ---
Today's Communication / Plan
-
Heart rate control reasonable on higher dose of Toprol
Stable cardiology status for discharge
Impression / Plan
-
PCP: Dr. Townsend
Cardiology: Dr. CHARLA Kelly
Impression:
Admitted with bright red blood 04/12/24
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
Chronic Eliquis OAC
Persistent Afib/atypical flutter/tach
s/p CV 09/07/23, 01/16/24
Chronic amiodarone therapy
Chronic HFpEF
Severe MR/TR
h/o left sided thoracentesis 09/05/23
CAD
s/p CABG with AZAR to LAD, SCG to PDA, SVG to OM, SVG to distal OM and DVG to Diag 1997
HTN
h/o orthostasis and syncope 2018
Hyperlipidemia
RBBB
DM 2
Paralyzed left hemidiaphragm
Echo 08/31/23: EF 50-55%, mild conc LVH, enlarged RV size, sev MR, aortic sclerosis without stenosis, sev TR with PAP 50-55 mmHg, no pericardial effusion
Echo 12/08/23: EF 53%, mild concentric LVH, stage II diastolic dysfunction, normal RV size/function, moderate to severe MR, trace aortic regurgitation
Plan:
Heart rate control reasonable on higher dose of Toprol
Patient is not a candidate for ablation of A-fib at this time due to GIB.
Might consider eventual consideration for Watchman if tolerates restart of Eliquis
Patient with h/o chronic HFpEF. Patient does not take a daily diuretic due to h/o CKD and syncope while on daily dosing Lasix. Patient does not examine in acute HF.
Stable cardiology status for discharge
PREADMIT DATAA
-Patient came to [facility] Monday morning with bleeding and cardiology is now consulted for recurrent Afib in RVR. Patient lives with her daughter and son in law, her son in law is Dr. Bowen Townsend. Patient has a h/o CABG in 1997. Then in about 2018
she had CV and amiodarone loading for Afib. Then at her Dr. Kelly office visit 08/08/23 she was noted to be in Afib, but denied palpitations, chest pain or SOB. Patient then had CV 09/07/23. Patient recurred with Afib and had another CV 01/16/24.
Patient was seen in the office for EP consultation on 03/25/2024 and they discussed ablation, but it was felt that since the patient was largely asymptomatic with her AF that no definitive plans were made and of note patient was in SR at that time.
Talked with the patient's daughter, Kamini, by phone today and she tells me that in the interim the patient spent time reviewing the material provided to her after the 03/25/2024 OV and had started to decide on her own that she wanted to pursue
ablation. Then on Monday morning after using the bathroom she noted blood and came to ER. At this point they feel the patient likely has diverticular bleeding. The patient has not had a dose of Eliquis since night. Patient was noted
to be in atypical atrial flutter/A. tach from the time of initial ECG in ER on 04/12/2024 and this has persisted throughout admission. Her usual dose of Toprol-XL 25 mg daily was started again on 04/13/2024 and dose was increased to 25 mg twice
daily starting 04/14/2024. Also her outpatient dose of amiodarone 20 mg daily was continued. Patient denies any palpitations, but review of telemetry by me shows rapid rate up to 130 at times and again she is asymptomatic with this.
Progress Note - Channel Machine Operator
Subjective
Date of Service: April 17, 2024
No complaints
Objective
Labs:
04/17/24 07:19
04/17/24 07:19
Labs
Hgb 10.6 g/dL (12.0-16.0) L 04/17/24 07:19
Hct 32.4 % (37.0-47.0) L 04/17/24 07:19
Plt Count 141 10^3/uL (130-400) 04/17/24 07:19
PT 15.4 Sec (11.4-14.6) H 04/12/24 09:01
INR 1.19 04/12/24 09:01
APTT 31.0 Sec (23.4-35.0) 04/12/24 09:01
Sodium 138 mmol/L (135-145) 04/17/24 07:19
Potassium 3.7 mmol/L (3.5-5.1) 04/17/24 07:19
BUN 21 mg/dl (7-17) H 04/17/24 07:19
Creatinine 0.9 mg/dL (0.6-1.0) 04/17/24 07:19
Glucose 124 mg/dl (70-99) H 04/17/24 07:19
Vital Signs and I&O:
Vital Signs
Temp Pulse Resp BP Pulse Ox
97.6 F 74 16 130/72 96
04/17/24 07:00 04/17/24 08:24 04/17/24 07:00 04/17/24 08:24 04/17/24 07:00
Vital Signs
Temp Pulse Resp BP Pulse Ox
97.6 F 74 16 130/72 96
04/17/24 07:00 04/17/24 08:24 04/17/24 07:00 04/17/24 08:24 04/17/24 07:00
Intake & Output
04/15/24 04/16/24 04/17/24 04/18/24
06:59 06:59 06:59 06:59
Intake Total 1080 / 1080 1680 / 1680 1440 / 1440
Balance 1080 / 1080 1680 / 1680 1440 / 1440
Physical Exam
Physical Exam
General: Well developed, well nourished in NAD.
Neck: Supple, no JVD, HJR, carotids +2 B/L, no bruits bilaterally.
Heart: Non displaced PMI, irregular, no murmurs, No S3, S4, no rubs.
Lungs: Scattered rhonchi
Extremities: No clubbing, cyanosis or edema bilaterally.
Neuro: Grossly nonfocal, awake, alert and oriented x3.
[2024-04-17 11:00] VITALS: BP 120/65
--- NOTE | 2024-04-17 11:29 | W.PN.HOSP.TC ---
Addendum entered and electronically signed by Nikolai Bianchi MD 04/17/24 12:44:
Patient has a bed at [facility] today. Discussed with daughter over the phone. Discharge today
Time of discharge 39 minutes
Original Note:
Today's Communication/Plan
-
Monitor vitals
See plan
Continue with metoprolol
Continue with Eliquis
Discharge planning, manager of case aware
Assessment / Plan
Assessment / Plan
General: Well Nourished and No Apparent Distress
HEENT: Anicteric and Moist mucous membranes
Respiratory: Clear and Non Labored Respirations
Cardiac: S1/S2 and Irregular Rhythm
GI: Soft, Non Tender and Non Distended
Genito-urinary: No [place]
Musculoskeletal: No Edema
Neuro: Awake, Alert and Oriented
Psych: Calm
BRBPR 2/2 GI bleed
likely exacerbated by Eliquis
Gi following, monitor hgb. patient does not appear to want any colonoscopy
PPI
diet advanced; does not want any scope
never had cscope in past
consider CT if symptoms dont improve
denies abdominal pain
monitor hgb
Eliquis restarted
Persistent atrial fibrillation
Currently in A-fib with RVR; has had cardioversion in past. currently denies any chest pain
Continue with amiodarone, metoprolol; increased metoprolol. HR still high. cardiology signed off
cw eliquis
Follows up with Dr. riddle outpatient
I spoke with daughter and it appears ablation was suggested in past
left breast cancer, mastectomy/chemotherapy/radiation 2006
COPD, currently not in exacerbation
Continue with home meds
History of CHF with preserved EF
Continue to monitor
Not on Lasix anymore
Hypertension
Continue with metoprolol
Hyperlipidemia
hx of AAA
GERD
Underweight
Chronic ambulatory dysfunction
DVT prophylaxis
SCDs
DNR, reviewed with daughter at bedside
PT/OT; daughter and patient Interested in SNF. media manager notified
Anticipated Discharge: Today
Subjective/Interval History
-
Date of Service: April 17, 2024
denies pain
Objective Data
-
Labs:
Laboratory Results
04/17/24
07:19
WBC 6.9
Hgb 10.6 L
Hct 32.4 L
Plt Count 141
Sodium 138
Potassium 3.7
Chloride 103
Carbon Dioxide 27
BUN 21 H
Creatinine 0.9
Glucose 124 H
Calcium 8.4
Vital Signs:
Vital Signs
Temp Pulse Resp BP Pulse Ox
97.6 F 74 16 130/72 96
04/17/24 07:00 04/17/24 08:24 04/17/24 07:00 04/17/24 08:24 04/17/24 07:00
I&O
04/16/24 04/17/24 04/18/24
06:59 06:59 06:59
Intake Total 1680 / 1680 1440 / 1440
Balance 1680 / 1680 1440 / 1440
--- NOTE | 2024-04-17 12:44 | CM ---
Received notification from attending that patient is medically cleared for discharge. Placed a call to Bia in admissions at [facility] who stated that she can accept patient today. # For report [phone] and .
Placed a call to patient's daughter, Kamini to update. She is agreeable to transfer to [facility]. Advised her about w/c van fee and she was agreeable to payment. Reviewed IMM, there are no concerns about discharge. IMM on chart.
Met with patient however she was in bathroom. Patient's daughter stated that she will talk to her about discharge.
Plan: Case management will continue to follow and assist with discharge planning. [facility] today.
[2024-04-17 15:20] VITALS: BP 119/69
== END 2024-04-17 18:10 | DRG 378 ==
LOC: 3 WEST ACU 11:53
PROVIDERS: Physician Assistant; ADMITTING PHYSICIAN Internal Medicine; CONSULT PHYSICIAN Internal Medicine Gastroenterology; EMERGENCY PHYSICIAN Emergency Medicine; FAMILY PHYSICIAN Internal Medicine; OTHER PHYSICIAN Internal Medicine Cardiovascular Disease
DX: K57.31 Diverticulosis of large intestine without perforation or abscess with bleeding (principal); D68.32 Hemorrhagic disorder due to extrinsic circulating anticoagulants; I48.19 Other persistent atrial fibrillation; I48.4 Atypical atrial flutter; I50.32 Chronic diastolic (congestive) heart failure; Z68.1 Body mass index [BMI] 19.9 or less, adult; Z66 Do not resuscitate; I25.10 Atherosclerotic heart disease of native coronary artery without angina pectoris; J44.9 Chronic obstructive pulmonary disease, unspecified; T45.515A Adverse effect of anticoagulants, initial encounter; R63.6 Underweight; E11.9 Type 2 diabetes mellitus without complications; I11.0 Hypertensive heart disease with heart failure; I45.10 Unspecified right bundle-branch block; K21.9 Gastro-esophageal reflux disease without esophagitis; E78.00 Pure hypercholesterolemia, unspecified; Z79.01 Long term (current) use of anticoagulants; Z79.84 Long term (current) use of oral hypoglycemic drugs; Z79.899 Other long term (current) drug therapy; Z85.3 Personal history of malignant neoplasm of breast; Z86.79 Personal history of other diseases of the circulatory system; Z87.891 Personal history of nicotine dependence; Z90.12 Acquired absence of left breast and nipple; Z92.21 Personal history of antineoplastic chemotherapy; Z92.3 Personal history of irradiation; Z95.1 Presence of aortocoronary bypass graft
CPT/HCPCS: 80048; 80053; 81003; 81015; 82248; 83735; 85025; 85610; 85730; 86850; 86900; 86901; 87077; 87086; 87186; 93005; 94640; 97116; 97162; 97166; 97530; 99284

== ENCOUNTER → 2024-04-22 10:32 | Outpatient (REF) | payer MEDICARE, OTHER, SELFPAY ==
[2024-04-22 12:17] LABS: % Basophils 0.5 % (0-2); % Eosinophils 0.8 % (0-6); % Immature Granulocytes 0.8 % (0-0.5); % Lymphocytes 14.3 % (20.5-51.1); % Monocytes 11.7 % (1.7-9.3); % Neutrophils 71.9 % (42.2-75.2); Absolute Eosinophils 0.1 10^3/uL (0-0.7); Absolute Immature Granulocytes 0.1 10^3/uL (0-0.05); Absolute Lymphocytes 1.1 10^3/uL (1.2-3.4); Absolute Monocytes 0.9 10^3/uL (0.1-0.6); Absolute Neutrophils 5.3 10^3/uL (1.4-6.5); Hematocrit 32.8 % (37.0-47.0); Hemoglobin 10.1 g/dL (12.0-16.0); Mean Corp Hgb Conc. 30.8 g/dL (33.0-37.0); Mean Corpuscular Hgb 29.4 pg (27.0-31.0); Mean Corpuscular Volume 95.3 fL (81.0-99.0); Mean Platelet Volume 11.4 fL (7.4-10.4); Nucleated Red Blood Cells % 0.4 %; Platelet Count 232 10^3/uL (130-400); Red Blood Cell Count 3.44 10^6/uL (4.20-5.40); Red Cell Dist. Width 15.9 % (11.5-14.5); White Blood Cell Count 7.4 10^3/uL (4.8-10.8)
[2024-04-22 12:39] LABS: Blood Urea Nitrogen 33 mg/dl (7-17); Calcium 8.5 mg/dl (8.4-10.2); Carbon Dioxide 29 mmol/L (22-30); Chloride 101 mmol/L (98-107); Glucose 125 mg/dl (70-99); Potassium 4.5 mmol/L (3.5-5.1); Sodium 136 mmol/L (135-145); eGFR 39.55
== END ==
LOC: OLABP 10:32
PROVIDERS: ATTENDING PHYSICIAN Family Medicine
DX: K62.5 Hemorrhage of anus and rectum (principal); M62.81 Muscle weakness (generalized); B96.20 Unspecified Escherichia coli [E. coli] as the cause of diseases classified elsewhere; I48.0 Paroxysmal atrial fibrillation; I50.9 Heart failure, unspecified; E78.5 Hyperlipidemia, unspecified
CPT/HCPCS: 36415; 80048; 85025

== ENCOUNTER 2024-05-10 06:07 | Inpatient (IN) | payer MEDICARE, OTHER, SELFPAY ==
[2024-05-09 20:15] VITALS: BP 130/77
[2024-05-09 20:39] LABS: % Basophils 0.4 % (0-2); % Eosinophils 1.6 % (0-6); % Immature Granulocytes 0.4 % (0-0.5); % Lymphocytes 8.8 % (20.5-51.1); % Monocytes 8.9 % (1.7-9.3); % Neutrophils 79.9 % (42.2-75.2); Absolute Eosinophils 0.1 10^3/uL (0-0.7); Absolute Lymphocytes 0.7 10^3/uL (1.2-3.4); Absolute Monocytes 0.7 10^3/uL (0.1-0.6); Absolute Neutrophils 5.9 10^3/uL (1.4-6.5); Hematocrit 34.5 % (37.0-47.0); Hemoglobin 10.5 g/dL (12.0-16.0); Mean Corp Hgb Conc. 30.4 g/dL (33.0-37.0); Mean Corpuscular Hgb 27.4 pg (27.0-31.0); Mean Corpuscular Volume 90.1 fL (81.0-99.0); Mean Platelet Volume 10.3 fL (7.4-10.4); Nucleated Red Blood Cells % 0.5 %; Platelet Count 190 10^3/uL (130-400); Red Blood Cell Count 3.83 10^6/uL (4.20-5.40); White Blood Cell Count 7.4 10^3/uL (4.8-10.8)
[2024-05-09 21:04] LABS: NT-proBNP 6830 pg/ml; Troponin I 0.021 ng/ml
[2024-05-09 21:10] LABS: ALT (SGPT) 36 U/L (0-35); AST (SGOT) 38 U/L (14-36); Albumin 3.3 g/dl (3.5-5.0); Alkaline Phosphatase 243 U/L (38-126); Blood Urea Nitrogen 31 mg/dl (7-17); Calcium 8.6 mg/dl (8.4-10.2); Carbon Dioxide 28 mmol/L (22-30); Chloride 100 mmol/L (98-107); Glucose 177 mg/dl (70-99); Potassium 4.2 mmol/L (3.5-5.1); Sodium 137 mmol/L (135-145); Total Bilirubin 1.2 mg/dl (0.2-1.3); Total Protein 6.2 g/dl (6.3-8.2); eGFR 43.54
[2024-05-09 22:25] VITALS: BP 115/85
[2024-05-09 22:56] VITALS: BMI 24.1
[2024-05-09 22:58] VITALS: BMI 23.2
[2024-05-09 23:00] VITALS: BP 130/91
--- NOTE | 2024-05-09 23:52 | ED.GENMED ---
History of Present Illness
General
Chief Complaint: Breathing Problem
Source: patient and family (Daughter)
Exam Limitations: none
Time Seen by Provider: 05/09/24 23:09
History of Present Illness
History of Present Illness:
This is a 89 year old female that comes in with c/o SOB and leg swelling. States that she has been SOB for about 1.5 weeks and it is getting worse. States that she stared with leg swelling about a week ago. Daughter states that she was given Lasix
for 3 days and this helped a little but the swelling went back up in a couple of days. States that she gained 2 pounds over night. States that her weight in the past weeks has continued to go up. Denies any fever, chills, chest pain, abd pain,
nausea, vomiting, diarrhea, headache, dizziness, urinary burning.
Past History
Past History
ED Past Medical History: Arrthythmia (Atrial fibrillation), CAD, Cancer (Breast CA), CHF, COPD, GERD, HTN, Hypercholesterolemia and ME
ED Past Surgical History: Cardiac (Bypass X 5 Vessels), Gynecological (D&C) and Other (Cataract surgery, Left mastectomy)
Social History
Tobacco: Former smoker
Alcohol: None
Personal:
Living: with family
Employment: Retired
Review of Systems
Review of Systems
All Other Systems: ROS reviewed and negative except as documented in HPI and ROS
Constitutional: Reports no symptoms; Denies fever or chills
EENT: Reports no symptoms
Respiratory: Reports trouble breathing; Denies cough
Cardiac: Reports no symptoms; Denies chest pain
ABD/GI: Reports no symptoms; Denies abdominal pain, nausea, vomiting or diarrhea
: Reports no symptoms; Denies dysuria, frequency or urgency
Musculoskeletal: Reports edema (Bilateral leg edema)
Skin: Reports no symptoms
Neurological: Reports no symptoms; Denies dizzy or headache
Psychiatric: Reports no symptoms
Phy Exam
General Physical Exam
General Presentation: no apparent distress
General age: appears stated age
General Skin: warm and dry
General Habitus: elderly
General Mental: alert
General Hydration: appears well hydrated
ENT Exam
ENT Exam: TM's normal, pharynx normal and neck supple
Eye Exam
Eye Exam: EOMI
Cardiovascular Exam
Cardiovascular Exam: normal peripheral pulses, irregularly irregular and other (Murmur)
Pulmonary Exam
Pulmonary Exam: no respiratory distress, chest non tender, no rhonchi, no wheezing, no cough and other (Rales 1/2 up on left)
Gastrointestinal Exam
Gastrointestinal Exam: normal bowel sounds, non tender, soft, no organomegaly, no pulsatile mass and non distended
Musculoskeletal Exam
Musculoskeletal Exam: full ROM and edema (+2 pitting edema of the lower legs and slightly into the lateral thighs)
Skin Exam
Skin Exam: normal color, warm/dry, no rash and no petechia
Psychiatric Exam
Psychiatric Exam: normal mood/affect
Scores
Heart Failure Risk
Heart Failure Risk Score: Yes
History of Stroke or TIA: No
History of intubation for respiratory distress: No
Heart rate on ED arrival >/= 110: No
SaO2 <90% on arrival on room air: No
HR >/=110 during 3min walk test (or too ill to perform test): Yes
ECG has acute ischemic changes: No
Urea >/=12mmol/L (BUN 33.6mg/dL): No
Serum CO2>/=35mmol/L: No
Troponin I or T elevated to ME Level (0.4mg/dL): No
NT-proBNP >/=5,000ng/L (5,000pg/ml): Yes
HF Risk Score: 3
Admission Status: HIGH RISK 15.9% Consider SNF treatment or admission to hospital
Course
Orders/Labs/Results
Orders:
Orders
01/02/25 20:18
Electrocardiogram (*1) Urgent
Reason for Study: Shortness of Breath
EKG- Treatment ONCE
05/09/24 20:34
BNP [NT-proBNP] Urgent
Complete Blood Count/With Diff Urgent
Comprehensive Metabolic Panel Urgent
Troponin I Urgent
05/10/24 00:00
CR Chest - 2 Views Urgent
Reason For Exam: SOb
Abnormal Lab Results
05/09/24
20:34
RBC 3.83 L 10^6/uL
(4.20-5.40)
Hgb 10.5 L g/dL
(12.0-16.0)
Hct 34.5 L %
(37.0-47.0)
MCHC 30.4 L g/dL
(33.0-37.0)
RDW 17.0 H %
(11.5-14.5)
Absolute Lymphs (auto) 0.7 L 10^3/uL
(1.2-3.4)
Absolute Monos (auto) 0.7 H 10^3/uL
(0.1-0.6)
Neutrophils % 79.9 H %
(42.2-75.2)
Lymphocytes % 8.8 L %
(20.5-51.1)
BUN 31 H mg/dl
(7-17)
Creatinine 1.2 H mg/dL
(0.6-1.0)
Glucose 177 H mg/dl
(70-99)
AST 38 H U/L
(14-36)
ALT 36 H U/L
(0-35)
Alkaline Phosphatase 243 H U/L
(38-126)
Total Protein 6.2 L g/dl
(6.3-8.2)
Albumin 3.3 L g/dl
(3.5-5.0)
05/09/24 20:34
05/09/24 20:34
H/H low but slightly improved form prior labs, Chronic renal insufficiency, Hyperglycemia. AST/ALT slightly elevated. Alk phos elevation. Total protein slightly low. Albumin slightly low. Troponin 0.021, Pro-BNP 6830 which is higher then prior labs.
Vital Signs
Initial and Last Documented VS:
Initial Vital Signs
Temp Pulse Resp BP Pulse Ox
98.0 F 92 16 130/77 97
05/09/24 20:15 05/09/24 20:15 05/09/24 20:15 05/09/24 20:15 05/09/24 20:15
Last Documented Vital Signs
Temp Pulse Resp BP Pulse Ox
98.0 F 101 18 134/87 94
05/09/24 20:15 05/10/24 00:00 05/10/24 00:00 05/10/24 00:00 05/10/24 00:00
MDM/Problems Addressed
Differential Diagnosis Includes:
CHF,
MDM/Problems Addressed:
This is a 89 year old female that comes in with c/o SOB and leg swelling. States that her SOB and leg swelling is getting worse. States that she gained 2 pounds over night and that over the past week her weight has increased.
Will check labs ad get chest x-ray.
Back into see patient. Explained that her Chest x-ray shows some increased vascular congestion and possible a small pleural effusion. Will admit patient and start on IV LAsix.
Chronic conditions affecting care:
CHF,
Acute Exacerbation and/or Progression of Chronic Illness:
CHF
*EKG
Interpreted by ED Provider?: Yes
Interpretation: abnormal
Heart Rate: 83
Rate: normal
Rhythm: a-fib
[place]: left axis deviation
QRS Pattern: right bundle branch block
Ischemia: no ischemia
*Financial Services Counselor Interpretation
Rate: normal
Heart Rate: 99
Rhythm: a-fib
*Critical Care Note
Total Time (30-74mins, 75-104mins- exclusive of procedures): Not Applicable
ED Attending Note
-
Portions of this chart may have been created with voice recognition software.� Occasional wrong word or��sound alike� substitutions may have occurred due to the inherent limitations of voice recognition software.
Discharge Plan
Departure
Patient Disposition: Admit
Date of Disposition: 05/10/24
Time of Disposition: 01:42
Admit to: Telemetry
Presentation/result/management discussed w/ accepting MD/DO: Hospitalist
Patient with high blood pressure during this ER visit?: Yes
Condition: Good
Covid-19: Not Applicable
Discharge Problem:
CHF (congestive heart failure), Bilateral leg edema
Prescriptions:
No Action
atorvastatin 40 mg Tablet
40 mg PO HS
rabeprazole 20 mg Tablet,Delayed Release (Dr/Ec)
20 mg PO DAILY
tiotropium bromide [Spiriva with HandiHaler] 18 mcg Capsule, W/Inhalation Device
1 cap INHALATION R DAILY
cholecalciferol (vitamin D3) 25 mcg (1,000 unit) Tablet
25 mcg PO DAILY
calcium carbonate-vitamin D3 [Calcium 600 + D(3)] 600 mg-10 mcg (400 unit) Tablet
1 tab PO BID
Jardiance 10 mg Tablet
10 mg PO DAILY
amiodarone 200 mg tablet
200 mg PO DAILY
therapeutic multivitamin Tablet
1 tab PO DAILY
docusate sodium [Stool Softener] 100 mg Capsule
100 mg PO DAILYPRN PRN (Reason: constipation)
Eliquis 2.5 mg Tablet
2.5 mg PO BID
metoprolol succinate 50 mg Tablet Extended Release 24 Hr
50 mg PO BID Qty: 0 0RF
Referrals:
UNKNOWN - PT DOES,NOT KNOW [Family Provider] -
Interventions
Interventions:
*Risk Screen - Suicide Last Done: 05/09/24 20:15
*General Assessment Last Done: 05/09/24 20:15
*Neglect/Abuse Screening Last Done: 05/09/24 20:15
ED- Fall Risk Assessment Last Done: 05/09/24 23:00
*ED COVID-19 Vaccine History Last Done: 05/09/24 20:15
ED- Cardiac Assessment Last Done: 05/09/24 23:00
ED- Pulmonary Assessment Last Done: 05/09/24 23:00
Discharge Date and Time
Print Language: JAPANESE
[2024-05-10] VITALS (13 sets, daily range): BP systolic 93–144; BP diastolic 70–99; BMI 23.2
[2024-05-10] MEDS: LASIX 20 MG IV ×3 (01:58→17:07)
--- NOTE | 2024-05-10 05:26 | HPS.HSE ---
Family Physician
-
Family Physician: Bowen Townsend
Chief Complaint
-
Bilateral lower extremity swelling
History of Present Illness
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
department with the requirement bilateral lower extremity swelling.
Patient reported that she started having swelling about a week ago. She discussed with a physician who put her on diuretics for 3 days. After 3 days of diuretics she noted the swelling did go down slightly but then increased again. Due to the
recurrent she decided to come to the emergency department. She reports chronic shortness of breath and dyspnea on exertion and feels that this is slightly worse compared to her baseline. She does not know what are without significantly changed or
not. She denies any dietary changes. She denies any cough fevers or chills. She denies feeling any worsening of her palpitations. Patient denies any recurrence of her rectal bleeding.
In the emergency department he was afebrile, blood pressure was 116/90 with a pulse of 95. ECG shows atrial fibrillation at a rate of 83 with known right bundle. Chest x-ray shows increase in the previously identified left-sided pleural effusion.
Troponin was negative at 0.02. BNP was elevated at 6800. She had no leukocytosis hemoglobin was stable at 10 and a platelet count was normal. Electrolytes and BUN/creatinine without significant change from previous levels.
Medical History
Past Medical History
Past Medical History: Reports Arrhythmia (Atrial fibrillation), CHF, COPD, GERD, HTN and Hypercholesterolemia
Past Surgical History: Reports Other
Social History
Tobacco: Non-smoker
Alcohol: None
Drug: None
Personal: Single
Living: With Family
Employment: Retired
Family History
Family History: Not pertinent
Allergies / Home Medications
Allergies reflects when Allergies were last updated in [facility].
Home Medications with original date entered in [facility]
Allergy/Medication List:
Allergies
Allergy/AdvReac Type Severity Reaction Status Date / Time
iron [Iron] Allergy Rash Verified 05/10/24 00:13
Home Medications
atorvastatin 40 mg tablet 40 mg PO HS High Cholesterol 09/04/23
calcium 600 mg (as carbonate)-vitamin D3 10 mcg (400 unit) tablet (Calcium 600 + D(3)) 1 tab PO BID Supplement 09/04/23
cholecalciferol (vitamin D3) 25 mcg (1,000 unit) tablet 25 mcg PO DAILY Supplement 09/04/23
rabeprazole 20 mg tablet,delayed release 20 mg PO DAILY Gastrointestinal Issue 09/04/23
tiotropium bromide 18 mcg capsule with inhalation device (Spiriva with HandiHaler) 1 cap inhalation R DAILY Lung/Breathing Issues 09/04/23
amiodarone 200 mg tablet 200 mg PO DAILY afib 01/16/24
empagliflozin 10 mg tablet (Jardiance) 10 mg PO DAILY 01/16/24
apixaban 2.5 mg tablet (Eliquis) 2.5 mg PO BID 04/12/24
docusate sodium 100 mg capsule (Stool Softener) 100 mg PO DAILYPRN PRN constipation 04/12/24
therapeutic multivitamin 1 tab PO DAILY 04/12/24
metoprolol succinate 50 mg tablet,extended release 24 hr 25 mg PO BID 05/10/24
Review of Systems
-
History Source: Patient
Constitutional: Reports No Symptoms
EENT: Reports No Symptoms
Respiratory: Reports Trouble Breathing
Cardiac: Reports No Symptoms
Abdomen/GI: Reports No Symptoms
: Reports No Symptoms
Musculoskeletal: Reports Edema
Skin: Reports No Symptoms
Neurological: Reports No Symptoms
Endocrine: Reports No Symptoms
Hematologic/Lymphatic: Reports No Symptoms
Psych: Reports No Symptoms
Physical Exam
Vital Signs
Vital Signs
Temp Pulse Resp BP Pulse Ox
98.0 F 95 18 116/106 94
05/10/24 02:03 05/10/24 01:58 05/10/24 00:00 05/10/24 01:58 05/10/24 00:00
Physical Exam
General: No Apparent Distress, Comfortable and Conversant
HEENT: NormoCephalic, Anicteric, Moist mucous membranes and Atraumatic
Respiratory: Clear, Crackles and Non Labored Respirations
Cardiac: S1/S2 and Irregular Rhythm
Breast: Deferred by me
GI: Soft, Non Tender, Non Distended and Normal Bowel Sounds
Rectal: Deferred by Provider
Genito-urinary: Deferred by me
Musculoskeletal: No Clubbing, No Cyanosis, Edema, Left Lower Extremity (1+) and Edema, Right Lower Extremity (1+)
Skin: Warm
Neuro: AO x 3 and Nonfocal/grossly intact
Hematologic/Lymphatic: No Lymphadenopathy
Psych: Calm
Laboratory Results
-
05/09/24 20:34
05/09/24 20:34
Laboratory Results
Total Bilirubin 1.2 mg/dl (0.2-1.3) 05/09/24 20:34
AST 38 U/L (14-36) H 05/09/24 20:34
ALT 36 U/L (0-35) H 05/09/24 20:34
Alkaline Phosphatase 243 U/L (38-126) H 05/09/24 20:34
Troponin I 0.021 ng/ml 05/09/24 20:34
Data Reviewed
-
Diagnostic Radiology: Image Personally Visualized and interpreted
Medical Tests (Nuc Med, Echo, EKG etc): Image Personally Visualized and interpreted
Lab Data: Labs Reviewed by me
Old Records: Reviewed
Impression/Plan
-
IMPRESSION:
Patient with history of CHF with preserved EF and diastolic dysfunction, permanent atrial fibrillation and a history of recent GI bleed presents to the emergency department with recurrent bilateral lower extremity swelling. Swelling not gone down
by time I saw her in the ED after trial of additional diuretics. She has increased right-sided pleural effusion. Weight is stable and she is hemodynamically stable. Appears to have mild subacute CHF exacerbation.
PLAN:
1. CHF exacerbation -pleural effusion, bilateral lower extremity edema, elevated BNP. No acute ischemia on ECG. No troponin elevation. Unclear etiology but has been on diuretic intermittently previously.
- admit to telemetry
- lasix 20mg iv bid for now with close monitoring
- continue metoprolol 25 bid
- continue jardiance and statin
- daily weight and i/o
- cardiology consult
2. Pleural effusion - Reaccumulation in setting of CHF exacerbation. Rule out infection.
- IR for diagnostic and therapeutic thoracentesis
3. AFIB
- continue rate control with metoprolol
- ac with eliquis 2.5 bid for now
continue home ppi and spiriva.
DVT PPX - on apixaban
Code status - full code
--- NOTE | 2024-05-10 07:24 | CON.CAR ---
Addendum entered and electronically signed by Bryce De La Torre MD 05/10/24 18:01:
I saw and examined the patient on morning rounds.
The Dredging Inspector's note was reviewed and I agree with the note.
Comment: Briefly, 89-year-old woman past medical history of heart failure with preserved ejection fraction, atrial fibrillation on Eliquis and CAD status post CABG who presents with worsening dyspnea and edema found to be in acute decompensated
heart failure
Volume overloaded on exam and proBNP is highest on record
Agree with IV Lasix to improve volume status
Monitor daily weights, renal function and electrolytes
Suspect that atrial fibrillation may be contributing to her decompensation
Consider direct-current cardioversion when volume status is more compensated
For now continue home amiodarone and metoprolol
Eliquis for cardioembolic prophylaxis
Rest per Jenna Vizcarra
Original Note:
Consultation
Consultation Request
Date/Time Consultation Requested: 05/10/2024, 0659
Date/Time Consultation Performed: 05/10/2024, 0730
Requesting Provider: ALF Kohli
Performing Provider: ALF Cartagena for [facility]
Reason for Consultation: acute HF, pleural effusion
Medical History
-
Chief Complaint: SOB and B/L LE edema
History of Present Illness:
89-year-old female with past medical history of coronary artery disease status post CABG in 1997, atrial fibrillation on Eliquis and amiodarone, heart failure preserved EF, abdominal aortic aneurysm, type 2 diabetes, right bundle branch block,
hypertension, hyperlipidemia, COPD, breast cancer with left mastectomy, paralyzed left hemidiaphragm who presents to ED on 05/09/2024 with worsening shortness of breath for the past week and a half as well as increasing lower extremity edema. She
was given Lasix for 3 days in the outpatient setting with mild improvement in swelling but it recurred after stopping Lasix. She gained 2 pounds overnight and due to worsening shortness of breath and edema it was decided to go to ER for evaluation.
Patient denies PND orthopnea. No chest pain, palpitations, lightheadedness.
She had a previous admission to 04/12/2024 to 04/17/2024 for GI bleed thought to be exacerbated by Eliquis. She was seen by GI and declined colonoscopy. Eliquis was stopped but restarted. She had persistent A-fib and and metoprolol was
increased to 50 mg twice daily for rate control. Thought that watchman could be considered if recurrent bleeding on Eliquis. She was discharged to shelter.
ER evaluation:
EKG: Atrial fibrillation with right bundle branch block, heart rate 83 bpm
Chest x-ray 05/10/2023: Elevation of left hemidiaphragm with increased small left pleural effusion and adjacent atelectasis
proBNP 6830
Troponin 0.021
BUN/creatinine 31/1.2, NA 137, K4.2
Hemoglobin 10.5
AST/ALT 38/36, alk phos 243
Received Lasix 20 mg IV in ED and ordered 20 mg IV twice daily
Went to IR for evaluation of pleural effusion, not large enough to perform thoracentesis
Patient lives with her daughter and son in law, her son in law is Dr. Bowen Townsend.
In regards to h/o afib, she was first diagnosed in 2018 she had CV and amiodarone loading for Afib. Then at her Dr. Kelly office visit 08/08/23 she was noted to be in Afib, but denied palpitations, chest pain or SOB. Patient then had CV 09/07/23.
Patient recurred with Afib and had another CV 01/16/24. Patient was seen in the office for EP consultation on 03/25/2024 and they discussed ablation, but it was felt that since the patient was largely asymptomatic with her AF that no definitive plans
were made and of note patient was in SR at that time. Patient subsequently reconsidered and wanted to consider proceeding with ablation. She was then admitted 04/12/2024 with GI bleed and was temporarily off Eliquis. Eliquis resumed at time of
discharge, 04/17/2024.
PMH:
Chronic Eliquis OAC
Persistent Afib/atypical flutter/tach
s/p CV 09/07/23, 01/16/24
Chronic amiodarone therapy
GI bleed with admission to 04/12/2024 to 04/17/2024
chronic HFpEF
Severe MR/TR
h/o left sided thoracentesis 09/05/23
CAD
s/p CABG with AZAR to LAD, SCG to PDA, SVG to OM, SVG to distal OM and DVG to Diag 1997
HTN
h/o orthostasis and syncope 2018
Hyperlipidemia
RBBB
DM 2
Paralyzed left hemidiaphragm
Past Medical History
Past Medical History: Other (in HPI)
Past Surgical History: Cardiac (CABG 1997) and Gynecological (left mastectomy)
Social History
Tobacco: Former Smoker
Alcohol: None
Drug: None
Living: With Family (she lives with her daughter and son in law)
Family History
Family History: CAD
Allergies / Home Medications
Allergy/AdvReac Type Severity Reaction Status Date / Time
iron [Iron] Allergy Rash Verified 05/10/24 00:13
�Medication �Instructions �Recorded �Confirmed �Type
atorvastatin 40 mg tablet 40 mg PO HS High Cholesterol 09/04/23 05/10/24 History
calcium 600 mg (as 1 tab PO BID Supplement 09/04/23 05/10/24 History
carbonate)-vitamin D3 10 mcg (400
unit) tablet (Calcium 600 + D(3))
cholecalciferol (vitamin D3) 25 25 mcg PO DAILY Supplement 09/04/23 05/10/24 History
mcg (1,000 unit) tablet
rabeprazole 20 mg tablet,delayed 20 mg PO DAILY Gastrointestinal 09/04/23 05/10/24 History
release Issue
tiotropium bromide 18 mcg capsule 1 cap inhalation R DAILY 09/04/23 05/10/24 History
with inhalation device (Spiriva Lung/Breathing Issues
with HandiHaler)
amiodarone 200 mg tablet 200 mg PO DAILY afib 01/16/24 05/10/24 History
empagliflozin 10 mg tablet 10 mg PO DAILY 01/16/24 05/10/24 History
(Jardiance)
apixaban 2.5 mg tablet (Eliquis) 2.5 mg PO BID 04/12/24 05/10/24 History
docusate sodium 100 mg capsule 100 mg PO DAILYPRN PRN constipation 04/12/24 05/10/24 History
(Stool Softener)
therapeutic multivitamin 1 tab PO DAILY 04/12/24 05/10/24 History
metoprolol succinate 50 mg 25 mg PO BID 05/10/24 05/10/24 History
tablet,extended release 24 hr
Review of Systems
-
History Source: Patient
All other systems: Negative unless noted
Physical Exam
Vital Signs
Temp Pulse Resp BP Pulse Ox
98.0 F 88 21 127/82 95
05/10/24 02:03 05/10/24 07:15 05/10/24 07:15 05/10/24 04:00 05/10/24 01:45
Lab Results
05/09/24 20:34
05/09/24 20:34
Troponin I 0.021 ng/ml 05/09/24 20:34
Bvx-Z-Jsufvvoente Pept 6830 pg/ml 05/09/24 20:34
GEN: No distress, awake, Ox3
HEENT: supple, anicteric, mmm
LUNGS: Decreased breath sounds left base, no wheezes/rales
CV: Irregular irregular, S1/S2, 2/6 systolic murmur
ABD: soft, BS+, NT/ND
EXT: 1+ edema bilaterally to lower thighs
NEURO: Gross non-focal
SKIN: No rash
Impression / Plan
-
PCP: Dr. Townsend
Cardiology: Dr. CHARLA Kelly
Impression:
acute on chronic heart failure preserved EF
Bilateral lower extremity edema
dyspnea on exertion
small L pleural effusion
GI bleed 04/12/24
Chronic Eliquis OAC
Persistent Afib/atypical flutter/tach
s/p CV 09/07/23, 01/16/24
Chronic amiodarone therapy
Severe MR/TR
h/o left sided thoracentesis 09/05/23, re evaluated in IR 05/10/2024, not enough fluid for procedure
CAD
s/p CABG with AZAR to LAD, SCG to PDA, SVG to OM, SVG to distal OM and DVG to Diag 1997
HTN
h/o orthostasis and syncope 2018
Hyperlipidemia
RBBB
DM 2
Paralyzed left hemidiaphragm
Echo 08/31/23: EF 50-55%, mild conc LVH, enlarged RV size, sev MR, aortic sclerosis without stenosis, sev TR with PAP 50-55 mmHg, no pericardial effusion
Echo 12/08/23: EF 53%, mild concentric LVH, stage II diastolic dysfunction, normal RV size/function, moderate to severe MR, trace aortic regurgitation
Plan:
89-year-old female with past medical history of coronary artery disease status post CABG in 1997, atrial fibrillation on Eliquis and amiodarone, heart failure preserved EF, GI bleed 04/2024, abdominal aortic aneurysm, type 2 diabetes, right bundle
branch block, hypertension, hyperlipidemia, COPD, breast cancer with left mastectomy, paralyzed left hemidiaphragm who presents to ED on 05/09/2024 with worsening shortness of breath and lower extremity edema for the past week and a half. Prior to
admission she was treated in the outpatient setting with 3 days of oral Lasix with mild improvement in symptoms, but then developed worsening shortness of breath, edema. ER evaluation with BNP 6800, troponin negative, chest x-ray showing small left
pleural effusion. In A-fib with controlled ventricular response. Has received 2 doses of Lasix 20 mg IV.
Plan:
-Admit for acute on chronic heart failure preserved EF
-Continue IV diuretics for now and will likely need maintenance oral diuretic in outpatient setting.. In past she was not on daily diuretic due to history of chronic kidney disease syncope when on daily Lasix. Could consider dosing 3 times a week.
-Monitor renal function
-I/O, daily weights, 2 g sodium restriction
-Not requiring oxygen
-Attempted thoracentesis 05/10/2024, pleural effusion too small to proceed
-Troponin negative
-EKG shows A-fib with controlled ventricular response. Telemetry personally reviewed A-fib heart rates 80s to 90s
-Continue metoprolol 25 mg twice daily and amiodarone
-No recurrent GI bleed on Eliquis 2.5 mg twice daily
Status post cardioversions 08/26/2023 and 01/26/2024
-Ablation was considered but deferred earlier this month due to GI bleed and off Eliquis
-She has been back on Eliquis since 04/17/2024. Could consider repeat cardioversion once she has been on uninterrupted Eliquis for 4 weeks.
-A-fib may be leading to heart failure symptoms
-Might consider eventual consideration for Watchman if tolerates restart of Eliquis
Data Reviewed
-
EKG: Tracing Personally Visualized and interpreted
Labs: Labs Reviewed by me
--- NOTE | 2024-05-10 07:40 | EDRN ---
Pt soaked this am she says and needs to be changed.
--- NOTE | 2024-05-10 07:51 | EDRN ---
entire bed and bedclothes saturated. Pt cleaned and new diaper and purewyck placed at this time.
[2024-05-10] MEDS: PROTONIX 40 MG PO (08:17)
[2024-05-10] MEDS: FARXIGA 10 MG PO (08:17)
[2024-05-10] MEDS: VITAMIN D3 (cholecalciferol) 25 MCG PO (08:18)
[2024-05-10] MEDS: ELIQUIS 2.5 MG PO ×2 (08:18→22:10)
[2024-05-10] MEDS: PACERONE 200 MG PO (08:19)
[2024-05-10] MEDS: OSCAL 500 + D 500 MG PO ×2 (08:19→22:10)
[2024-05-10] MEDS: SPIRIVA RESPIMAT 2.5 MCG INH (08:42)
[2024-05-10] MEDS: SPIRIVA RESPIMAT 2.5 MCG 2 PUFF INH (08:43)
--- NOTE | 2024-05-10 08:45 | EDRN ---
Pt returned from [facility] at this time w/ report not enough fluid for thoracentesis to be done.
[2024-05-10] MEDS: TOPROL XL 25 MG PO ×2 (09:00→22:10)
--- NOTE | 2024-05-10 09:03 | EDRN ---
Marylou Vizcarra DOUGH BRAKER w/ cardiology in room w/ pt.
--- NOTE | 2024-05-10 10:28 | EDRN ---
Dr. Vasquez in room w/pt at this time.
--- NOTE | 2024-05-10 10:57 | EDRN ---
Dr. Greene w/ cardiology in room w/ pt at this time.
--- NOTE | 2024-05-10 11:07 | EDRN ---
Pt had another saturated diaper at this time.
--- NOTE | 2024-05-10 11:08 | EDRN ---
Pt was wet w/ very saturated depends. Pt changed at this time. Purewyck placed at this time.
--- NOTE | 2024-05-10 12:17 | EDRN ---
Lunch ordered for pt at this time.
--- NOTE | 2024-05-10 14:05 | EDRN ---
Pt incontinent of large amount of urine. Pt changed and now more comfortable. Purewyck suction had to be fixed.
--- NOTE | 2024-05-10 17:09 | W.PN.UPDATE ---
Update Note
Progress Note Update
Continue IV diuresis
Monitor BMP, daily weights
Monitor A-fib, defer to cardiology on timing of cardioversion
--- NOTE | 2024-05-10 17:30 | PTCARENOTE ---
Patient arrived to unit awake and alert x3. Denies any pain. Small bruise above left eye brow and scratch on R ankle. Bed alarm d/t recent fall at 5minutes. L limb restriction. Patient oriented to room and currently eating dinner.
[2024-05-10] MEDS: LIPITOR 40 MG PO (22:10)
[2024-05-11 03:52] VITALS: BP 116/79
[2024-05-11 04:57] VITALS: BMI 19.2
[2024-05-11 07:10] VITALS: BP 143/82
[2024-05-11] MEDS: SPIRIVA RESPIMAT 2.5 MCG 2 PUFF INH (08:01)
[2024-05-11 08:31] LABS: Hematocrit 35.4 % (37.0-47.0); Hemoglobin 10.7 g/dL (12.0-16.0); Mean Corp Hgb Conc. 30.2 g/dL (33.0-37.0); Mean Corpuscular Hgb 26.8 pg (27.0-31.0); Mean Corpuscular Volume 88.7 fL (81.0-99.0); Mean Platelet Volume 10.4 fL (7.4-10.4); Platelet Count 196 10^3/uL (130-400); Red Blood Cell Count 3.99 10^6/uL (4.20-5.40); Red Cell Dist. Width 16.9 % (11.5-14.5); White Blood Cell Count 7.5 10^3/uL (4.8-10.8)
[2024-05-11 09:06] LABS: ALT (SGPT) 30 U/L (0-35); AST (SGOT) 40 U/L (14-36); Albumin 2.9 g/dl (3.5-5.0); Alkaline Phosphatase 210 U/L (38-126); Blood Urea Nitrogen 24 mg/dl (7-17); Calcium 7.8 mg/dl (8.4-10.2); Carbon Dioxide 37 mmol/L (22-30); Chloride 95 mmol/L (98-107); Estimated Creatinine Clearance 37 ml/min; Glucose 93 mg/dl (70-99); LDH 404 U/L (120-246); Magnesium 1.9 mg/dl (1.6-2.3); Sodium 138 mmol/L (135-145); Total Bilirubin 1.6 mg/dl (0.2-1.3); Total Protein 5.6 g/dl (6.3-8.2); eGFR > 60.00
[2024-05-11] MEDS: OSCAL 500 + D 500 MG PO ×2 (10:40→21:33)
[2024-05-11] MEDS: TOPROL XL 25 MG PO ×2 (10:40→21:33)
[2024-05-11] MEDS: KCL ELIXIR 40 MEQ PO ×2 (10:40→12:06)
[2024-05-11] MEDS: FARXIGA 10 MG PO (10:40)
[2024-05-11] MEDS: ELIQUIS 2.5 MG PO ×2 (10:40→21:32)
[2024-05-11] MEDS: VITAMIN D3 (cholecalciferol) 25 MCG PO (10:40)
[2024-05-11] MEDS: PACERONE 200 MG PO (10:40)
[2024-05-11] MEDS: PROTONIX 40 MG PO (10:40)
[2024-05-11] MEDS: LASIX 20 MG IV ×2 (10:41→15:23)
[2024-05-11 11:00] VITALS: BP 128/75
--- NOTE | 2024-05-11 11:03 | W.PN.CARDCBS ---
Addendum entered and electronically signed by George Rogel MD 05/11/24 13:05:
I saw and examined the patient.
The ADVENTURE THERAPIST or PA's note was reviewed and I agree with the note.
Comment: General: Well developed, well nourished in NAD.
Neck: Supple, no JVD, HJR, carotids +2 B/L, no bruits bilaterally.
Heart: Non displaced PMI, irregular, no murmurs, No S3, S4, no rubs.
Lungs: Scattered rhonchi
Extremities: No clubbing, cyanosis or edema bilaterally.
Neuro: Grossly nonfocal, awake, alert and oriented x3.
Continue IV Lasix. Consider change to p.o. in the next 24 to 48 hours. A-fib is rate controlled. Consider eventual outpatient cardioversion but had recent GI bleeding and would just rate control at this point.
Original Note:
Today's Communication / Plan
-
continue IV lasix, consider transition to po in next 24-48 hours
replete K
continue toprol and amio, afib rate controlled
tolerating eliquis
could consider for OP cardioversion. was also being considered for watchman and ablation
could consider for mitraclip
Impression / Plan
-
PCP: Dr. Townsend
Cardiology: Dr. CHARLA Kelly
Impression:
acute on chronic heart failure preserved EF
Bilateral lower extremity edema
dyspnea on exertion
small L pleural effusion
GI bleed 04/12/24
Chronic Eliquis OAC
Persistent Afib/atypical flutter/tach
s/p CV 09/07/23, 01/16/24
Chronic amiodarone therapy
Severe MR/TR
h/o left sided thoracentesis 09/05/23, re evaluated in IR 05/10/2024, not enough fluid for procedure
CAD
s/p CABG with AZAR to LAD, SCG to PDA, SVG to OM, SVG to distal OM and DVG to Diag 1997
HTN
h/o orthostasis and syncope 2018
Hyperlipidemia
RBBB
DM 2
Paralyzed left hemidiaphragm
Echo 08/31/23: EF 50-55%, mild conc LVH, enlarged RV size, sev MR, aortic sclerosis without stenosis, sev TR with PAP 50-55 mmHg, no pericardial effusion
Echo 12/08/23: EF 53%, mild concentric LVH, stage II diastolic dysfunction, normal RV size/function, moderate to severe MR, trace aortic regurgitation
Plan:
-She reports some improvement in breathing from admission. Pleural effusion too small for thoracentesis
-Continue IV Lasix. She was not on daily diuretic due to history of kidney disease as well as history of syncope while on daily Lasix. Could consider p.o. Lasix 20 mg Monday upon discharge
-Creatinine improving. Replete K
-Remains in A-fib with controlled ventricular response on review of telemetry overnight. Continue Toprol 25 mg twice daily and amiodarone 200 mg daily
-She had a recent GI bleed 04/2024 and was off Eliquis for a time. For time being we will continue with rate control. She has history of cardioversion in August and January 2024. Could consider for outpatient cardioversion if no recurrent
bleeding issues however is high risk for recurrence due to moderate to severe MR
-continue Eliquis 2.5 mg twice daily
-Discussed echo results from 12/2023. She could be considered for MitraClip
-She was also being considered for ablation however deferred due to recent GI bleed. May be candidate for Watchman in addition
-OP cardiac follow up arranged
Progress Note - Salvage Engineer
Subjective
Date of Service: May 11, 2024
Reports improvement in breathing from admission
Objective
Labs:
05/11/24 06:49
05/11/24 06:49
Labs
Hgb 10.7 g/dL (12.0-16.0) L 05/11/24 06:49
Hct 35.4 % (37.0-47.0) L 05/11/24 06:49
Plt Count 196 10^3/uL (130-400) 05/11/24 06:49
Sodium 138 mmol/L (135-145) 05/11/24 06:49
Potassium 3.0 mmol/L (3.5-5.1) L D 05/11/24 06:49
BUN 24 mg/dl (7-17) H 05/11/24 06:49
Creatinine 0.9 mg/dL (0.6-1.0) 05/11/24 06:49
Glucose 93 mg/dl (70-99) 05/11/24 06:49
Troponins
05/09/24
20:34
Troponin I 0.021
Vital Signs and I&O:
Vital Signs
Temp Pulse Resp BP Pulse Ox
98.6 F 90 16 143/82 93
05/11/24 07:10 05/11/24 08:04 05/11/24 08:04 05/11/24 07:10 05/11/24 08:04
Vital Signs
Temp Pulse Resp BP Pulse Ox
98.6 F 90 16 143/82 93
05/11/24 07:10 05/11/24 08:04 05/11/24 08:04 05/11/24 07:10 05/11/24 08:04
Intake & Output
05/09/24 05/10/24 05/11/24 05/12/24
07:59 07:59 07:59 07:59
Intake Total 120 / 120
Balance 120 / 120
Physical Exam
Physical Exam
GEN: No distress, awake, alert, oriented x3
HEENT: supple, anicteric, mmm, eomi
LUNGS: CTA B/L, no wheezes/rales
CV: Irreg, S1/S2, 2/6 murmur
ABD: soft, BS+, NT/ND
EXT: No cyanosis, clubbing. trace edema of B/L LE
NEURO: Gross non-focal
SKIN: Warm, pink, dry. No rash
--- NOTE | 2024-05-11 14:30 | W.PN.HOSP.TC ---
Today's Communication/Plan
-
Continue IV diuresis
Electrolyte repletion
Abdominal ultrasound
Assessment / Plan
Assessment / Plan
Physical Exam
General: No Apparent Distress, Comfortable and Conversant
HEENT: NormoCephalic, Anicteric, Moist mucous membranes and Atraumatic
Respiratory: Clear, Crackles and Non Labored Respirations
Cardiac: S1/S2 and Irregular Rhythm
Breast: Deferred by me
GI: Soft, Non Tender, Non Distended and Normal Bowel Sounds
Rectal: Deferred by Provider
Genito-urinary: Deferred by me
Musculoskeletal: No Clubbing, No Cyanosis, Edema, Left Lower Extremity (1+) and Edema, Right Lower Extremity (1+)
Skin: Warm
Neuro: AO x 3 and Nonfocal/grossly intact
Hematologic/Lymphatic: No Lymphadenopathy
Psych: Calm
#Acute HFpEF
-cont iv lasix
-cards recs
-prob po transition 24-48 hours
- continue metoprolol 25 bid
- continue jardiance and statin
- daily weight and i/o
#Pleural effusion - Reaccumulation in setting of CHF exacerbation.
-too small for thora
#Hypokalemia
-monitor and replete
#AFIB
- continue rate control with metoprolol
- ac with eliquis 2.5 bid for now
�Rate controlled
� Eventual outpatient cardioversion chest�reason GI bleeding, adjust rate control this point
#PAUL
-most likely cardiorenal
-resolved with diuresis
#Transaminitis
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
# No right upper quadrant tenderness
� Follow-up ultrasound
continue home ppi and spiriva.
DVT PPX - on apixaban
Code status - full code
Anticipated Discharge: 24 - 48 hours
Subjective/Interval History
-
Date of Service: May 11, 2024
Lower leg swelling improved
Objective Data
-
Labs:
Laboratory Results
05/11/24
06:49
WBC 7.5
Hgb 10.7 L
Hct 35.4 L
Plt Count 196
Sodium 138
Potassium 3.0 L D
Chloride 95 L
Carbon Dioxide 37 H
BUN 24 H
Creatinine 0.9
Glucose 93
Calcium 7.8 L
Total Bilirubin 1.6 H
AST 40 H
ALT 30
Alkaline Phosphatase 210 H
Vital Signs:
Vital Signs
Temp Pulse Resp BP Pulse Ox
98.2 F 88 20 128/75 94
05/11/24 11:00 05/11/24 11:00 05/11/24 11:00 05/11/24 11:00 05/11/24 11:00
I&O
05/10/24 05/11/24 05/12/24
06:59 06:59 06:59
Intake Total 120 / 120
Balance 120 / 120
Review of Systems
-
History Source: Patient
All other systems: Not reviewed unless documented
Physical Exam
-
General: Well Developed, Well Nourished and No Apparent Distress
HEENT: Normocephalic, Atraumatic and Moist Mucous Membranes
Respiratory: Clear to Auscultation (clear today)
Cardiac: S1/S2 and Irregular Rhythm
GI: Soft, Nontender and Nondistended
Musculoskeletal: No Clubbing, No Cyanosis, Edema, Right Lower Extrem (Improved) and Edema, Left Lower Extrem (Improved)
Neuro: Awake, Alert and Oriented
Data Reviewed
-
Diagnostic Radiology: Report Reviewed by me
[2024-05-11 15:05] VITALS: BP 104/63
[2024-05-11 19:00] VITALS: BP 124/79
[2024-05-11] MEDS: LIPITOR 40 MG PO (21:33)
[2024-05-11 23:00] VITALS: BP 109/68
[2024-05-12 03:00] VITALS: BP 118/72
[2024-05-12 06:00] VITALS: BMI 18.6
[2024-05-12 07:59] VITALS: BP 120/70
[2024-05-12 08:06] LABS: Hematocrit 34.3 % (37.0-47.0); Hemoglobin 10.7 g/dL (12.0-16.0); Mean Corp Hgb Conc. 31.2 g/dL (33.0-37.0); Mean Corpuscular Hgb 27.6 pg (27.0-31.0); Mean Corpuscular Volume 88.6 fL (81.0-99.0); Mean Platelet Volume 10.9 fL (7.4-10.4); Platelet Count 203 10^3/uL (130-400); Red Blood Cell Count 3.87 10^6/uL (4.20-5.40); Red Cell Dist. Width 16.9 % (11.5-14.5); White Blood Cell Count 8.1 10^3/uL (4.8-10.8)
[2024-05-12] MEDS: SPIRIVA RESPIMAT 2.5 MCG 2 PUFF INH (08:14)
[2024-05-12 08:38] LABS: ALT (SGPT) 28 U/L (0-35); AST (SGOT) 38 U/L (14-36); Albumin 2.9 g/dl (3.5-5.0); Alkaline Phosphatase 197 U/L (38-126); Blood Urea Nitrogen 25 mg/dl (7-17); Calcium 7.9 mg/dl (8.4-10.2); Carbon Dioxide 38 mmol/L (22-30); Chloride 94 mmol/L (98-107); Estimated Creatinine Clearance 32 ml/min; Glucose 119 mg/dl (70-99); Potassium 3.7 mmol/L (3.5-5.1); Sodium 138 mmol/L (135-145); Total Bilirubin 1.1 mg/dl (0.2-1.3); Total Protein 5.7 g/dl (6.3-8.2); eGFR 54.19
--- NOTE | 2024-05-12 09:35 | W.PN.CARDCBS ---
Today's Communication / Plan
-
Continue IV Lasix
Consider change to oral Lasix in a.m.
Remains in rate controlled A-fib
Impression / Plan
-
PCP: Dr. Townsend
Cardiology: Dr. CHARLA Kelly
Impression:
acute on chronic heart failure preserved EF
Bilateral lower extremity edema
dyspnea on exertion
small L pleural effusion
GI bleed 04/12/24
Chronic Eliquis OAC
Persistent Afib/atypical flutter/tach
s/p CV 09/07/23, 01/16/24
Chronic amiodarone therapy
Severe MR/TR
h/o left sided thoracentesis 09/05/23, re evaluated in IR 05/10/2024, not enough fluid for procedure
CAD
s/p CABG with AZAR to LAD, SCG to PDA, SVG to OM, SVG to distal OM and DVG to Diag 1997
HTN
h/o orthostasis and syncope 2018
Hyperlipidemia
RBBB
DM 2
Paralyzed left hemidiaphragm
Echo 08/31/23: EF 50-55%, mild conc LVH, enlarged RV size, sev MR, aortic sclerosis without stenosis, sev TR with PAP 50-55 mmHg, no pericardial effusion
Echo 12/08/23: EF 53%, mild concentric LVH, stage II diastolic dysfunction, normal RV size/function, moderate to severe MR, trace aortic regurgitation
Plan:
She appears improved. Weight is less than on prior admission
Continue IV Lasix. She was not on daily diuretic due to history of kidney disease as well as history of syncope while on daily Lasix. Could consider p.o. Lasix 20 mg Monday upon discharge
Remains in A-fib with controlled ventricular response. Continue Toprol 25 mg twice daily and amiodarone 200 mg daily
She had a recent GI bleed 04/2024 and was off Eliquis for a time. continue with rate control. She has history of cardioversion in August and January 2024. Could consider for outpatient cardioversion if no recurrent bleeding issues however is
high risk for recurrence due to moderate to severe MR. She has appointment in the office on May 20 discuss options for A-fib
continue Eliquis 2.5 mg twice daily
Discussed with daughter by phone.
Progress Note - Senior Chemical Process Engineer
Subjective
Date of Service: May 12, 2024
No complaints. Remains on room air
Objective
Labs:
05/12/24 06:08
05/12/24 06:08
Labs
Hgb 10.7 g/dL (12.0-16.0) L 05/12/24 06:08
Hct 34.3 % (37.0-47.0) L 05/12/24 06:08
Plt Count 203 10^3/uL (130-400) 05/12/24 06:08
Sodium 138 mmol/L (135-145) 05/12/24 06:08
Potassium 3.7 mmol/L (3.5-5.1) 05/12/24 06:08
BUN 25 mg/dl (7-17) H 05/12/24 06:08
Creatinine 1.0 mg/dL (0.6-1.0) 05/12/24 06:08
Glucose 119 mg/dl (70-99) H 05/12/24 06:08
Troponins
05/09/24
20:34
Troponin I 0.021
Vital Signs and I&O:
Vital Signs
Temp Pulse Resp BP Pulse Ox
98.6 F 92 16 120/70 91
05/12/24 07:59 05/12/24 08:14 05/12/24 08:14 05/12/24 07:59 05/12/24 08:14
Vital Signs
Temp Pulse Resp BP Pulse Ox
98.6 F 92 16 120/70 91
05/12/24 07:59 05/12/24 08:14 05/12/24 08:14 05/12/24 07:59 05/12/24 08:14
Intake & Output
05/10/24 05/11/24 05/12/24 05/13/24
06:59 06:59 06:59 06:59
Intake Total 120 / 120 480 / 480
Balance 120 / 120 480 / 480
Physical Exam
Physical Exam
General: Well developed, well nourished in NAD.
Neck: Supple, no JVD, HJR, carotids +2 B/L, no bruits bilaterally.
Heart: Non displaced PMI, irregular, no murmurs, No S3, S4, no rubs.
Lungs: Scattered rhonchi
Extremities: No clubbing, cyanosis or edema bilaterally.
Neuro: Grossly nonfocal, awake, alert and oriented x3.
[2024-05-12] MEDS: PROTONIX 40 MG PO (10:17)
[2024-05-12] MEDS: OSCAL 500 + D 500 MG PO ×2 (10:17→21:06)
[2024-05-12] MEDS: FARXIGA 10 MG PO (10:18)
[2024-05-12] MEDS: PACERONE 200 MG PO (10:18)
[2024-05-12] MEDS: ELIQUIS 2.5 MG PO ×2 (10:18→21:06)
[2024-05-12] MEDS: TOPROL XL 25 MG PO ×2 (10:19→21:06)
[2024-05-12] MEDS: VITAMIN D3 (cholecalciferol) 25 MCG PO (10:19)
--- NOTE | 2024-05-12 10:23 | CM ---
Pt seen bedside. Initial assessment completed. Admitted for bilateral lower extremity swelling.
Pt reports that she lives w/ her daughter, Kamini and son-in-law in a 2ST[address]- 1 step to enter.
Pt reports that she has a rollator and walker in the home. Pt states she has a built in seat in the shower. Denies any other DME use.
Pt stated she was prev at [facility] in April for about 2 weeks. Pt states she does not want to talk about it or return if rehab would be recommended.
Pt stated she is known to [facility], stating she was seen twice in the home, last time being this past week. Pt feels is not benefitting her as she states she can take her own vitals.
Address, point of contact and insurance verified
PCP: Dr. Townsend
Pharm[facility]: [facility] but for [facility] she belongs to [facility] in [place]
Pt reports her was a as she has [employer] as secondary insurance. Pt is unsure if she receives any benefits.
Plan: Anticipate home; no needs
[2024-05-12 11:04] VITALS: BP 128/80
[2024-05-12] MEDS: LASIX 20 MG IV ×2 (12:46→17:38)
--- NOTE | 2024-05-12 14:28 | W.PN.HOSP.TC ---
Today's Communication/Plan
-
Continue IV diuresis
Assessment / Plan
Assessment / Plan
Physical Exam
General: No Apparent Distress, Comfortable and Conversant
HEENT: NormoCephalic, Anicteric, Moist mucous membranes and Atraumatic
Respiratory: Clear, Crackles and Non Labored Respirations
Cardiac: S1/S2 and Irregular Rhythm
Breast: Deferred by me
GI: Soft, Non Tender, Non Distended and Normal Bowel Sounds
Rectal: Deferred by Provider
Genito-urinary: Deferred by me
Musculoskeletal: No Clubbing, No Cyanosis, Edema, Left Lower Extremity (1+) and Edema, Right Lower Extremity (1+)
Skin: Warm
Neuro: AO x 3 and Nonfocal/grossly intact
Hematologic/Lymphatic: No Lymphadenopathy
Psych: Calm
#Acute HFpEF
-cont iv lasix
-cards recs
-prob po transition 24-48 hours
- continue metoprolol 25 bid
- continue jardiance and statin
- daily weight and i/o
#Pleural effusion - Reaccumulation in setting of CHF exacerbation.
-too small for thora
#Hypokalemia
-monitor and replete
#AFIB
- continue rate control with metoprolol
- ac with eliquis 2.5 bid for now
�Rate controlled
� Eventual outpatient cardioversion chest�reason GI bleeding, adjust rate control this point
#PAUL
-most likely cardiorenal
-resolved with diuresis
#Transaminitis
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
# No right upper quadrant tenderness
� Follow-up ultrasound�mild diffuse liver disease, moderate distention of the CBD
� With no elevated bilirubin, no right upper quadrant tenderness, will closely monitor
#Fusiform infrarenal abdominal aortic aneurysm (4.9 cm diameter).
f/u outpt
DVT PPX - on apixaban
Code status - full code
Anticipated Discharge: Within 24 hours
Subjective/Interval History
-
Date of Service: May 12, 2024
Left lower leg swelling improving although still present
Objective Data
-
Labs:
Laboratory Results
05/12/24
06:08
WBC 8.1
Hgb 10.7 L
Hct 34.3 L
Plt Count 203
Sodium 138
Potassium 3.7
Chloride 94 L
Carbon Dioxide 38 H
BUN 25 H
Creatinine 1.0
Glucose 119 H
Calcium 7.9 L
Total Bilirubin 1.1
AST 38 H
ALT 28
Alkaline Phosphatase 197 H
Vital Signs:
Vital Signs
Temp Pulse Resp BP Pulse Ox
98.5 F 90 18 128/80 93
05/12/24 11:04 05/12/24 11:04 05/12/24 11:04 05/12/24 11:04 05/12/24 11:04
I&O
05/11/24 05/12/24 05/13/24
06:59 06:59 06:59
Intake Total 120 / 120 480 / 480
Balance 120 / 120 480 / 480
Review of Systems
-
History Source: Patient
All other systems: Not reviewed unless documented
Data Reviewed
-
Diagnostic Radiology: Report Reviewed by me
[2024-05-12 15:02] VITALS: BP 135/73
[2024-05-12 19:00] VITALS: BP 116/75
[2024-05-12] MEDS: LIPITOR 40 MG PO (21:07)
[2024-05-12 23:00] VITALS: BP 107/71
[2024-05-13 03:00] VITALS: BP 115/73
[2024-05-13 06:00] VITALS: BMI 18.1
[2024-05-13 07:05] VITALS: BP 135/71
[2024-05-13] MEDS: SPIRIVA RESPIMAT 2.5 MCG 2 PUFF INH (07:57)
[2024-05-13 08:40] LABS: Hematocrit 31.4 % (37.0-47.0); Mean Corp Hgb Conc. 31.8 g/dL (33.0-37.0); Mean Corpuscular Hgb 27.5 pg (27.0-31.0); Mean Corpuscular Volume 86.5 fL (81.0-99.0); Mean Platelet Volume 10.5 fL (7.4-10.4); Platelet Count 185 10^3/uL (130-400); Red Blood Cell Count 3.63 10^6/uL (4.20-5.40); White Blood Cell Count 7.6 10^3/uL (4.8-10.8)
[2024-05-13 09:13] LABS: ALT (SGPT) 26 U/L (0-35); AST (SGOT) 34 U/L (14-36); Albumin 2.7 g/dl (3.5-5.0); Alkaline Phosphatase 185 U/L (38-126); Blood Urea Nitrogen 23 mg/dl (7-17); Calcium 7.9 mg/dl (8.4-10.2); Carbon Dioxide 37 mmol/L (22-30); Chloride 93 mmol/L (98-107); Estimated Creatinine Clearance 35 ml/min; Glucose 92 mg/dl (70-99); Potassium 3.2 mmol/L (3.5-5.1); Sodium 136 mmol/L (135-145); Total Bilirubin 1.4 mg/dl (0.2-1.3); Total Protein 5.3 g/dl (6.3-8.2); eGFR > 60.00
[2024-05-13] MEDS: OSCAL 500 + D 500 MG PO ×2 (11:27→22:44)
[2024-05-13 11:28] VITALS: BP 94/59
[2024-05-13] MEDS: PACERONE 200 MG PO (11:28)
[2024-05-13] MEDS: LASIX 20 MG IV ×2 (11:28→17:52)
[2024-05-13] MEDS: PROTONIX 40 MG PO (11:28)
[2024-05-13] MEDS: FARXIGA 10 MG PO (11:28)
[2024-05-13] MEDS: TOPROL XL 25 MG PO (11:29)
[2024-05-13] MEDS: VITAMIN D3 (cholecalciferol) 25 MCG PO (11:29)
[2024-05-13] MEDS: ELIQUIS 2.5 MG PO ×2 (11:29→22:43)
--- NOTE | 2024-05-13 11:29 | W.PN.CARDCBS ---
Addendum entered and electronically signed by George Rogel MD 05/13/24 13:20:
I saw and examined the patient.
The THERAPEUTIC RECREATION LEADER or PA's note was reviewed and I agree with the note.
Comment: General: Well developed, well nourished in NAD.
Neck: Supple, no JVD, HJR, carotids +2 B/L, no bruits bilaterally.
Heart: Non displaced PMI, irregular, no murmurs, No S3, S4, no rubs.
Lungs: Scattered rhonchi
Extremities: No clubbing, cyanosis or edema bilaterally.
Neuro: Grossly nonfocal, awake, alert and oriented x3.
Continue IV Lasix for now but consider change to oral Lasix in a.m. Of note patient had orthostasis in the past. Might consider Lasix 20 mg Monday. Address A-fib as an outpatient. She has an appointment May 20 in our office.
Given recent GI bleed may not be a candidate for cardioversion. Also has had multiple recurrences. Rate control might be preferable.
Original Note:
Today's Communication / Plan
-
Cont amiodarone
Outpatient CV vs ablation, patient is asymptomatic with Afib, but recurrent admissions for CHF
Impression / Plan
-
PCP: Dr. Townsend
Cardiology: Dr. CHARLA Kelly
Impression:
Acute on chronic HFpEF
Bilateral lower extremity edema
dyspnea on exertion
small L pleural effusion
GI bleed 04/12/24
Chronic Eliquis OAC
Persistent Afib/atypical flutter/tach
s/p CV 09/07/23, 01/16/24
Chronic amiodarone therapy
Severe MR/TR
Pleural effusion
s/p left sided thoracentesis 09/05/23
re evaluated in IR, not enough fluid for thora 05/10/24
CAD
s/p CABG with AZAR to LAD, SCG to PDA, SVG to OM, SVG to distal OM and DVG to Diag 1997
HTN
h/o orthostasis and syncope 2018
Hyperlipidemia
RBBB
DM 2
Paralyzed left hemidiaphragm
Hypokalemia
Echo 08/31/23: EF 50-55%, mild conc LVH, enlarged RV size, sev MR, aortic sclerosis without stenosis, sev TR with PAP 50-55 mmHg, no pericardial effusion
Echo 12/08/23: EF 53%, mild concentric LVH, stage II diastolic dysfunction, normal RV size/function, moderate to severe MR, trace aortic regurgitation
Plan:
-Weight is down to 112 lbs, patient has diuresed 18 lbs this admission. Cre stable at 0.9. Cont Lasix 20 mg IV BID. Patient was not taking a diuretic daily prior to admission due to h/o orthostasis and syncope.
-Consider Lasix 20 mg MWF at time of d/c
-Cont Toprol XL 25 mg BID
-Cont Jardiance 10 mg daily, changed ot Farxiga due to formulary at
-Remains in Afib that is persistent at this point. Patient had GIB during 04/12/24 until 04/17/24 admission, but has been back on Eliquis 2.5 mg BID (age 89, Cre 0.9, wt 50.89 kg) since 04/17/24 without recurrent bleeding. Patient had CV 09/07/23 then
recurred with Afib and had another CV 01/16/24. Patient was seen in the office for EP consultation on 03/25/2024 and they discussed ablation, but it was felt that since the patient was largely asymptomatic with her AF that no definitive plans were
made and of note patient was in SR at that time. Talked with the patient's daughter, Kamini, during 04/2024 admission and she said patient spent time reviewing the material provided to her after the 03/25/2024 OV and had started to decide on her own
that she wanted to pursue ablation. Another CV is another option.
-Cont outpatient dose of amiodarone 200 mg daily for rate control for now
-Potassium is low, KCl 40 meq PO x1 now ordered by me
Progress Note - Reimbursement Consultant
Subjective
Date of Service: May 13, 2024
Feels less SOB, no palpitations
Objective
Labs:
05/13/24 07:22
05/13/24 07:22
Labs
Hgb 10.0 g/dL (12.0-16.0) L 05/13/24 07:22
Hct 31.4 % (37.0-47.0) L 05/13/24 07:22
Plt Count 185 10^3/uL (130-400) 05/13/24 07:22
Sodium 136 mmol/L (135-145) 05/13/24 07:22
Potassium 3.2 mmol/L (3.5-5.1) L 05/13/24 07:22
BUN 23 mg/dl (7-17) H 05/13/24 07:22
Creatinine 0.9 mg/dL (0.6-1.0) 05/13/24 07:22
Glucose 92 mg/dl (70-99) 05/13/24 07:22
Vital Signs and I&O:
Vital Signs
Temp Pulse Resp BP Pulse Ox
98.0 F 85 18 135/71 92
05/13/24 07:05 05/13/24 07:05 05/13/24 07:05 05/13/24 07:05 05/13/24 07:05
Vital Signs
Temp Pulse Resp BP Pulse Ox
98.0 F 85 18 135/71 92
05/13/24 07:05 05/13/24 07:05 05/13/24 07:05 05/13/24 07:05 05/13/24 07:05
Intake & Output
05/11/24 05/12/24 05/13/24 05/14/24
06:59 06:59 06:59 06:59
Intake Total 120 / 120 480 / 480
Balance 120 / 120 480 / 480
Physical Exam
Physical Exam
GEN: NAD. AAOx3
HEENT: EOMI, wearing glasses
LUNGS: RA. No audible wheeze
CV: Afib on tele.
ABD: ND
EXT: +Trace B/L LE edema.
NEURO: Gross non-focal
SKIN: Warm, dry and pink. No rash
[2024-05-13] MEDS: KCL 40 MEQ PO (12:36)
[2024-05-13 15:25] VITALS: BP 102/66
--- NOTE | 2024-05-13 15:26 | W.PN.HOSP.TC ---
Today's Communication/Plan
-
CW IV lasix
DC planning
Assessment / Plan
Assessment / Plan
#Acute HFpEF
-Improving clinically and weight. On room air.
-cont iv lasix
-cards following
-prob po transition 24 hours
- continue metoprolol 25 bid
- continue jardiance and statin
- daily weight and i/o
#Pleural effusion - Reaccumulation in setting of CHF exacerbation.
-too small for thora
#AFIB
- continue rate control with metoprolol
- ac with eliquis 2.5 bid for now
�Rate controlled
� Eventual outpatient cardioversion �reason GI bleeding, adjust rate control this point
#PAUL
-most likely cardiorenal
-resolved with diuresis
#Transaminitis
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
# No right upper quadrant tenderness
� Follow-up ultrasound�mild diffuse liver disease, moderate distention of the CBD
� With no elevated bilirubin, no right upper quadrant tenderness, will closely monitor
#Fusiform infrarenal abdominal aortic aneurysm (4.9 cm diameter).
f/u outpt
DVT PPX - on apixaban
Code status - full code
Anticipated Discharge: Within 24 hours
Subjective/Interval History
-
Date of Service: May 13, 2024
Not SOB at rest; able to walk with walker to bathroom without much SOB.
No CP.
Objective Data
-
Labs:
Laboratory Results
05/13/24
07:22
WBC 7.6
Hgb 10.0 L
Hct 31.4 L
Plt Count 185
Sodium 136
Potassium 3.2 L
Chloride 93 L
Carbon Dioxide 37 H
BUN 23 H
Creatinine 0.9
Glucose 92
Calcium 7.9 L
Total Bilirubin 1.4 H
AST 34
ALT 26
Alkaline Phosphatase 185 H
Vital Signs:
Vital Signs
Temp Pulse Resp BP Pulse Ox
98.5 F 85 16 137/71 91
05/13/24 11:28 05/13/24 11:28 05/13/24 11:28 05/13/24 11:28 05/13/24 11:28
I&O
05/12/24 05/13/24 05/14/24
06:59 06:59 06:59
Intake Total 480 / 480
Balance 480 / 480
Review of Systems
-
Abdomen/GI: Denies Nausea or Vomiting
Neuro: Denies Dizzy
Physical Exam
-
General: No Apparent Distress
HEENT: Moist Mucous Membranes
Respiratory: Clear to Auscultation ( ) and Non Labored Respirations; Negative Accessory Resp Muscle Use
Cardiac: S1/S2 and Irregular Rhythm; Negative Tachycardic
GI: Soft
Neuro: AO x 3
Psych: Calm
Data Reviewed
-
Labs: Labs Reviewed by me
--- NOTE | 2024-05-13 16:24 | PN.CDI ---
CDI
- -
CDI:
Physician Documentation Request
Admit Date: 05/10/24 06:07
Dear Doctor Bryon,
Clinical Indicators:
Height: 5 ft 6 in
Weight: 112 lbs 3.2 oz
BMI: 18.1
05/10 note/assessment: 'suspect wt fluctuations reflect fluid as well as some wt loss'
Diagnosis-Problem: Unintended weight loss
If possible, please provide an associated diagnosis related to the abnormal BMI (BMI < or = to 19), such as:
Weight loss
Underweight
Cachectic
BMI is not significant
Other
Use of terms such as suspected, likely, concern for, or probable (associated with a specific diagnosis that is being evaluated, monitored, or treated as if it exists) are acceptable and can be coded in the inpatient setting, when documented at the
time of discharge.
Thank you,
Caryn Frost RN BSN
CDI Specialist
available via tiger text
Please use your independent medical judgment in providing your response.
[2024-05-13 19:30] VITALS: BP 110/69
[2024-05-13 22:43] VITALS: BP 95/61
[2024-05-13] MEDS: LIPITOR 40 MG PO (22:44)
[2024-05-13] MEDS: TOPROL XL PO (22:44)
[2024-05-14] VITALS (8 sets, daily range): BP systolic 107–135; BP diastolic 70–81; PULSE 102; O2SAT 95; BMI 17.4
[2024-05-14] MEDS: SPIRIVA RESPIMAT 2.5 MCG 2 PUFF INH (07:24)
[2024-05-14 07:42] LABS: Hematocrit 33.4 % (37.0-47.0); Hemoglobin 10.4 g/dL (12.0-16.0); Mean Corp Hgb Conc. 31.1 g/dL (33.0-37.0); Mean Corpuscular Hgb 27.3 pg (27.0-31.0); Mean Corpuscular Volume 87.7 fL (81.0-99.0); Mean Platelet Volume 10.5 fL (7.4-10.4); Platelet Count 198 10^3/uL (130-400); Red Blood Cell Count 3.81 10^6/uL (4.20-5.40); Red Cell Dist. Width 17.1 % (11.5-14.5); White Blood Cell Count 7.3 10^3/uL (4.8-10.8)
[2024-05-14 08:34] LABS: ALT (SGPT) 28 U/L (0-35); AST (SGOT) 40 U/L (14-36); Albumin 2.7 g/dl (3.5-5.0); Alkaline Phosphatase 161 U/L (38-126); Blood Urea Nitrogen 27 mg/dl (7-17); Calcium 7.6 mg/dl (8.4-10.2); Carbon Dioxide 37 mmol/L (22-30); Chloride 96 mmol/L (98-107); Estimated Creatinine Clearance 33 ml/min; Glucose 103 mg/dl (70-99); Potassium 3.4 mmol/L (3.5-5.1); Sodium 137 mmol/L (135-145); Total Bilirubin 1.1 mg/dl (0.2-1.3); Total Protein 5.3 g/dl (6.3-8.2); eGFR > 60.00
[2024-05-14] MEDS: TOPROL XL 25 MG PO ×2 (08:56→19:37)
[2024-05-14] MEDS: PACERONE 200 MG PO (08:56)
[2024-05-14] MEDS: OSCAL 500 + D 500 MG PO ×2 (08:56→19:37)
[2024-05-14] MEDS: VITAMIN D3 (cholecalciferol) 25 MCG PO (08:56)
[2024-05-14] MEDS: ELIQUIS 2.5 MG PO ×2 (08:57→19:37)
[2024-05-14] MEDS: PROTONIX 40 MG PO (08:57)
[2024-05-14] MEDS: LASIX 20 MG IV (08:57)
[2024-05-14] MEDS: FARXIGA 10 MG PO (08:57)
--- NOTE | 2024-05-14 09:38 | W.PN.CARDCBS ---
Today's Communication / Plan
-
Wt is down. Change to Lasix 20 mg MWF. She has diuresed 20 lbs since admit. She was not taking a diuretic prior to admit due to orthostasis and syncope
Cr remains stable.
Cont Toprol XL 25 mg BID
Cont Jardiance 10 mg daily, changed to Farxiga due to formulary at
Remains in Afib that is persistent at this point.
-Patient had GIB during 04/12/24 until 04/17/24 admission, but has been back on Eliquis 2.5 mg BID (age 89, Cre 0.9, wt 50.89 kg) since 04/17/24 without recurrent bleeding.
-Patient had CV 09/07/23 then recurred with Afib and had another CV 01/16/24.
-Patient was seen in the office for EP consultation on 03/25/2024 and they discussed ablation, but it was felt that since the patient was largely asymptomatic with her AF that no definitive plans were made and of note patient was in SR at that
time.
-The patient's daughter, Kamini, previously noted that she may want to consider rhythm control therapy, which would be as outpt
-Cont outpatient dose of amiodarone 200 mg daily for rate control
Replete lytes as needed.
Will update daughter Kamini
Please recall if needed
Impression / Plan
-
.
PCP: Dr. Townsend
Cardiology: Dr. CHARLA Kelly
Impression:
Acute on chronic HFpEF
Bilateral lower extremity edema
dyspnea on exertion
small L pleural effusion
GI bleed 04/12/24
Chronic Eliquis OAC
Persistent Afib/atypical flutter/tach
s/p CV 09/07/23, 01/16/24
Chronic amiodarone therapy
Severe MR/TR
Pleural effusion
s/p left sided thoracentesis 09/05/23
re evaluated in IR, not enough fluid for thora 05/10/24
CAD
s/p CABG with AZAR to LAD, SCG to PDA, SVG to OM, SVG to distal OM and DVG to Diag 1997
HTN
h/o orthostasis and syncope 2018
Hyperlipidemia
RBBB
DM 2
Paralyzed left hemidiaphragm
Hypokalemia
Echo 08/31/23: EF 50-55%, mild conc LVH, enlarged RV size, sev MR, aortic sclerosis without stenosis, sev TR with PAP 50-55 mmHg, no pericardial effusion
Echo 12/08/23: EF 53%, mild concentric LVH, stage II diastolic dysfunction, normal RV size/function, moderate to severe MR, trace aortic regurgitation
Plan:
Wt is down. Change to Lasix 20 mg MWF. She has diuresed 20 lbs since admit. She was not taking a diuretic prior to admit due to orthostasis and syncope
Cr remains stable.
Cont Toprol XL 25 mg BID
Cont Jardiance 10 mg daily, changed to Farxiga due to formulary at
Remains in Afib that is persistent at this point.
-Patient had GIB during 04/12/24 until 04/17/24 admission, but has been back on Eliquis 2.5 mg BID (age 89, Cre 0.9, wt 50.89 kg) since 04/17/24 without recurrent bleeding.
-Patient had CV 09/07/23 then recurred with Afib and had another CV 01/16/24.
-Patient was seen in the office for EP consultation on 03/25/2024 and they discussed ablation, but it was felt that since the patient was largely asymptomatic with her AF that no definitive plans were made and of note patient was in SR at that
time.
-The patient's daughter, Kamini, previously noted that she may want to consider rhythm control therapy, which would be as outpt
-Cont outpatient dose of amiodarone 200 mg daily for rate control
Replete lytes as needed.
Will update daughter Kamini
Please recall if needed
Progress Note - Flower Arranger
Subjective
Date of Service: May 14, 2024
Pt seen and examined. No complaints. No chest pain or shortness of breath.
Objective
Labs:
05/14/24 07:15
05/14/24 07:15
Labs
Hgb 10.4 g/dL (12.0-16.0) L 05/14/24 07:15
Hct 33.4 % (37.0-47.0) L 05/14/24 07:15
Plt Count 198 10^3/uL (130-400) 05/14/24 07:15
Sodium 137 mmol/L (135-145) 05/14/24 07:15
Potassium 3.4 mmol/L (3.5-5.1) L 05/14/24 07:15
BUN 27 mg/dl (7-17) H 05/14/24 07:15
Creatinine 0.9 mg/dL (0.6-1.0) 05/14/24 07:15
Glucose 103 mg/dl (70-99) H 05/14/24 07:15
Vital Signs and I&O:
Vital Signs
Temp Pulse Resp BP Pulse Ox
98.0 F 100 16 109/71 91
05/14/24 07:05 05/14/24 07:30 05/14/24 07:30 05/14/24 07:05 05/14/24 07:30
Vital Signs
Temp Pulse Resp BP Pulse Ox
98.0 F 100 16 109/71 91
05/14/24 07:05 05/14/24 07:30 05/14/24 07:30 05/14/24 07:05 05/14/24 07:30
Intake & Output
05/12/24 05/13/24 05/14/24 05/15/24
06:59 06:59 06:59 06:59
Intake Total 480 / 480 580 / 580
Balance 480 / 480 580 / 580
Physical Exam
Physical Exam
General: No acute distress, AAOX3
Neck: Negative JVD
Heart: Irregularly irregular, Negative S3 positive S1/S2, Negative S4, No murmur
Lungs: CTA b/l, negative wheezes/rales/rhonchi
Abd: Positive BS, NT/ND, neg rebound/rigidity/guarding
Ext: Negative cyanosis/clubbing/edema
Neuro: nonfocal
--- NOTE | 2024-05-14 12:03 | W.PN.HOSP.TC ---
Today's Communication/Plan
-
DC
Assessment / Plan
Assessment / Plan
#Acute HFpEF
-Improving clinically and weight. Improved lower extremity edema.. On room air.
-Lasix switched to oral Monday
-cards will follow as an outpatient-stable from the standpoint for discharge today
- continue metoprolol 25 bid
- continue jardiance and statin
- daily weight at home
#Pleural effusion - Reaccumulation in setting of CHF exacerbation.
-too small for thora
#AFIB
- continue rate control with metoprolol
- ac with eliquis 2.5 bid for now
�Rate controlled
� Eventual outpatient cardioversion �reason GI bleeding, adjust rate control this point
#PAUL
-most likely cardiorenal
-resolved with diuresis
#Transaminitis
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
# No right upper quadrant tenderness
� Follow-up ultrasound�mild diffuse liver disease, moderate distention of the CBD
-Ocdhegldp-xysfbd-lb with as outpatient
#Fusiform infrarenal abdominal aortic aneurysm (4.9 cm diameter).
f/u outpt
DVT PPX - on apixaban
Code status - full code
Medically stable for discharge home.
Obtain PT OT eval prior to discharge.
Discussed with cardiology today.
Left voicemail to her daughter.
Total time of discharge 32 minutes
Anticipated Discharge: Today
Subjective/Interval History
-
Date of Service: May 14, 2024
Improved weight and lower EXTR edema. Denies any shortness of breath. No chest pain. Denies any dizziness. Walking to the bathroom with help here and walker. Lives at home with the daughter.
Objective Data
-
Labs:
Laboratory Results
05/14/24
07:15
WBC 7.3
Hgb 10.4 L
Hct 33.4 L
Plt Count 198
Sodium 137
Potassium 3.4 L
Chloride 96 L
Carbon Dioxide 37 H
BUN 27 H
Creatinine 0.9
Glucose 103 H
Calcium 7.6 L
Total Bilirubin 1.1
AST 40 H
ALT 28
Alkaline Phosphatase 161 H
Vital Signs:
Vital Signs
Temp Pulse Resp BP Pulse Ox
98.0 F 98 18 116/72 92
05/14/24 11:48 05/14/24 11:48 05/14/24 11:48 05/14/24 11:48 05/14/24 11:48
I&O
05/13/24 05/14/24 05/15/24
06:59 06:59 06:59
Intake Total 580 / 580
Balance 580 / 580
Review of Systems
-
Constitutional: Denies Fever
EENT: Denies Sore Throat
Respiratory: Denies Cough
Abdomen/GI: Denies Abdominal Pain, Nausea or Vomiting
Neuro: Denies Headache
Physical Exam
-
General: No Apparent Distress
HEENT: Moist Mucous Membranes
Respiratory: Clear to Auscultation and Non Labored Respirations; Negative Accessory Resp Muscle Use
Cardiac: S1/S2 and Irregular Rhythm; Negative Tachycardic
GI: Soft
Neuro: AO x 3
Psych: Calm
Data Reviewed
-
Labs: Labs Reviewed by me
--- NOTE | 2024-05-14 12:27 | CM ---
Addendum entered by Rosita Harris 05/14/24 16:27:
Daughter called CM to request referral to [facility]. Referral sent via all scripts, await response. Patient daughter also confirmed that she would be working with aides from [facility] at home and CM made daughter aware that [facility] would accept
patient mother. CM will continue to follow for discharge planning needs.
Plan; SNF; pending acceptance/available bed from [facility].
Addendum entered by Rosita Harris 05/14/24 15:55:
Patient daughter states that she did start appeal prior to hearing from Dr. Slater but has now called to rescind the appeal. CM updated referrals to send referral to [facility]. CM will continue to follow for discharge planning needs.
Addendum entered by Rosita Harris 05/14/24 15:34:
referrals sent via all scripts to both [facility] and [facility], pending coverage and acceptance.
Addendum entered by Rosita Harris 05/14/24 13:55:
CM received call from patient family, patient daughter would like to start appeal if patient is discharged today. Patient daughter asking for home PT/OT/SWer from [facility]. Patient daughter contact information provided via tt to physician. CM will
continue to follow for discharge planning needs.
[facility] pending physician conversation with patient daughter.
Addendum entered by Rosita Harris 05/14/24 12:59:
PT worked with patient and are recommending SNF. CM will discuss with patient family. Patient does not want SNF but will need supervision at home. CM awaiting call back. CM will continue to follow for discharge planning needs.
Original Note:
Patient seen at bedside with nurse. Patient states she is going for a walk and to the bathroom with nurse. Patient requested CM call to patient daughter and review discharge planning needs as well as IMM. VM left with daughter requesting call back
to review discharge plan. Patient also waiting for PT/OT. CM will continue to follow for discharge planning needs.
Plan; home with VN vs home with no needs.
[2024-05-14] MEDS: LIPITOR 40 MG PO (21:27)
[2024-05-15 03:30] VITALS: BP 126/64
[2024-05-15 06:00] VITALS: BMI 17.6
[2024-05-15 07:30] VITALS: BP 121/75
[2024-05-15 08:14] LABS: Hemoglobin 10.3 g/dL (12.0-16.0); Mean Corp Hgb Conc. 31.2 g/dL (33.0-37.0); Mean Corpuscular Hgb 27.2 pg (27.0-31.0); Mean Corpuscular Volume 87.1 fL (81.0-99.0); Mean Platelet Volume 10.7 fL (7.4-10.4); Platelet Count 219 10^3/uL (130-400); Red Blood Cell Count 3.79 10^6/uL (4.20-5.40); White Blood Cell Count 7.2 10^3/uL (4.8-10.8)
[2024-05-15] MEDS: SPIRIVA RESPIMAT 2.5 MCG 2 PUFF INH (08:22)
[2024-05-15] MEDS: TOPROL XL 25 MG PO ×2 (08:29→19:31)
[2024-05-15] MEDS: OSCAL 500 + D 500 MG PO ×2 (08:29→19:31)
[2024-05-15] MEDS: ELIQUIS 2.5 MG PO ×2 (08:29→19:31)
[2024-05-15] MEDS: PACERONE 200 MG PO (08:29)
[2024-05-15] MEDS: FARXIGA 10 MG PO (08:29)
[2024-05-15] MEDS: PROTONIX 40 MG PO (08:30)
[2024-05-15] MEDS: VITAMIN D3 (cholecalciferol) 25 MCG PO (08:30)
[2024-05-15 08:32] LABS: ALT (SGPT) 27 U/L (0-35); AST (SGOT) 35 U/L (14-36); Albumin 2.7 g/dl (3.5-5.0); Alkaline Phosphatase 175 U/L (38-126); Blood Urea Nitrogen 27 mg/dl (7-17); Calcium 8.1 mg/dl (8.4-10.2); Carbon Dioxide 39 mmol/L (22-30); Chloride 95 mmol/L (98-107); Estimated Creatinine Clearance 30 ml/min; Glucose 90 mg/dl (70-99); Potassium 3.7 mmol/L (3.5-5.1); Sodium 138 mmol/L (135-145); Total Bilirubin 1.2 mg/dl (0.2-1.3); Total Protein 5.5 g/dl (6.3-8.2); eGFR 54.19
--- NOTE | 2024-05-15 12:41 | CM ---
CM spoke w/ pt's daughter, Kamini, regarding d/c plan. Kamini agreeable for pt to go to rehab at d/c, prefers [facility].
TRINI discussed transport options. Kamini stated she will be unable to transport pt. Pt may not qualify for ambulance as pt is not bedbound, on O2, confused, etc that would qualify insurance coverage. TRINI discussed the option of a WC van, CM explained to
Kamini that it would be a private cost and transaction will have to occur over the phone w/ transport company prior to them sending their crew to pt's room. Kamini inquired about receiving a bill, CM explained payment would occur over the phone when she
calls. CM stated if she asked for payment confirmation, transport company could be able to accommodate that for her.
Per [facility], pt can be accepted tomorrow 3 pm or later. Pt will need COVID test prior to d/c
TRINI updated hospitalist and order for COVID test
[facility]
Report: [phone]

Plan: [facility] SNF
--- NOTE | 2024-05-15 13:28 | W.PN.HOSP.TC ---
Today's Communication/Plan
-
Ongoing dispo efforts
Assessment / Plan
Assessment / Plan
#Acute HFpEF
-Improving clinically and weight. Improved lower extremity edema.. On room air.
-Lasix switched to oral Monday
-cards will follow as an outpatient-stable from the standpoint for discharge
- continue metoprolol 25 bid
- continue jardiance and statin
- daily weight at home
#Pleural effusion - Reaccumulation in setting of CHF exacerbation.
-too small for thora
#AFIB
- continue rate control with metoprolol
- ac with eliquis 2.5 bid for now
�Rate controlled
� Eventual outpatient cardioversion �reason GI bleeding, adjust rate control this point
#PAUL
-most likely cardiorenal
-resolved with diuresis
#Transaminitis
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
# No right upper quadrant tenderness
� Follow-up ultrasound�mild diffuse liver disease, moderate distention of the CBD
-Xffpqzhux-qfuwio-ij with as outpatient
#Fusiform infrarenal abdominal aortic aneurysm (4.9 cm diameter).
f/u outpt
DVT PPX - on apixaban
Code status - full code
Medically stable for discharge home.
PT recommends SNF
Discussed with daughter Kamini yesterday about clinical dx,tx and dc plan.
DW CM - daughter is agreeable for SNF, ongoing dispo efforts
Anticipated Discharge: Within 24 hours
Subjective/Interval History
-
Date of Service: May 15, 2024
Feels ok
Denies SOB or CP
Objective Data
-
Labs:
Laboratory Results
05/15/24
06:34
WBC 7.2
Hgb 10.3 L
Hct 33.0 L
Plt Count 219
Sodium 138
Potassium 3.7
Chloride 95 L
Carbon Dioxide 39 H
BUN 27 H
Creatinine 1.0
Glucose 90
Calcium 8.1 L
Total Bilirubin 1.2
AST 35
ALT 27
Alkaline Phosphatase 175 H
Vital Signs:
Vital Signs
Temp Pulse Resp BP Pulse Ox
98.0 F 76 16 121/75 97
05/15/24 07:30 05/15/24 08:29 05/15/24 08:26 05/15/24 08:29 05/15/24 08:26
I&O
05/14/24 05/15/24 05/16/24
06:59 06:59 06:59
Intake Total 580 / 580 480 / 480
Balance 580 / 580 480 / 480
Review of Systems
-
Constitutional: Denies Fever
Abdomen/GI: Denies Abdominal Pain, Nausea or Vomiting
Neuro: Denies Dizzy
Physical Exam
-
General: No Apparent Distress
HEENT: Moist Mucous Membranes
Respiratory: Clear to Auscultation and Non Labored Respirations; Negative Accessory Resp Muscle Use
Cardiac: S1/S2 and Irregular Rhythm; Negative Tachycardic
GI: Soft
Neuro: AO x 3
[2024-05-15 13:54] VITALS: BP 138/64; PULSE 86; O2SAT 98
[2024-05-15 14:04] LABS: COVID-19 Antigen Negative (Negative)
[2024-05-15 15:00] VITALS: BP 101/68
[2024-05-15] MEDS: LIPITOR 40 MG PO (21:37)
[2024-05-15 23:25] VITALS: BP 112/75
[2024-05-16 06:00] VITALS: BMI 17.7
[2024-05-16 07:00] VITALS: BP 129/75
[2024-05-16] MEDS: SPIRIVA RESPIMAT 2.5 MCG 2 PUFF INH (08:03)
[2024-05-16] MEDS: PROTONIX 40 MG PO (08:52)
[2024-05-16] MEDS: FARXIGA 10 MG PO (08:52)
[2024-05-16] MEDS: PACERONE 200 MG PO (08:52)
[2024-05-16] MEDS: TOPROL XL 25 MG PO (08:53)
[2024-05-16] MEDS: VITAMIN D3 (cholecalciferol) 25 MCG PO (08:53)
[2024-05-16] MEDS: ELIQUIS 2.5 MG PO (08:53)
[2024-05-16] MEDS: OSCAL 500 + D 500 MG PO (08:53)
--- NOTE | 2024-05-16 11:36 | CM ---
Pt to d/c today, hospitalist agreeable.
Spoke w/ daughter, Kamini, who confirmed WC van transport will be needed. CM provided phone number to [facility] to make payment.
Kamini shared she would like copies of d/c paperwork as she was not able to get this when pt went to [facility] previously and would like copies for her own record. Kamini stated she is unable to bring pt clothes as she is at work, pt would need something
to wear to transport in. CM stated pt may be able to be provided w/ scrubs if any are available.
soda clerk arranged WC van for 3pm
IMM reviewed, copy on chart
[facility]
Report: [phone]

Plan: [facility] SNF. 3pm WC van transport time
[2024-05-16 15:00] VITALS: BP 138/86
--- NOTE | 2024-05-16 16:03 | W.PN.HOSP.TC ---
Addendum entered and electronically signed by Rio Slater MD 05/18/24 17:02:
BMI: 18.1 suggesting underweight
Original Note:
Today's Communication/Plan
-
dc
Assessment / Plan
Assessment / Plan
#Acute HFpEF
-Improving clinically and weight. Improved lower extremity edema.. Remains On room air.
-Lasix switched to oral Monday
- cards will follow as an outpatient-stable from the standpoint for discharge
- continue metoprolol 25 bid
- continue jardiance and statin
- daily weight at home
#Pleural effusion - Reaccumulation in setting of CHF exacerbation.
-too small for thora
#AFIB
- continue rate control with metoprolol
- ac with eliquis 2.5 bid for now
�Rate controlled
� Eventual outpatient cardioversion �reason GI bleeding, adjust rate control this point
#PAUL
-most likely cardiorenal
-resolved with diuresis
#Transaminitis
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
# No right upper quadrant tenderness
� Follow-up ultrasound�mild diffuse liver disease, moderate distention of the CBD
-Fjxxmdnuu-dwhlle-dx with as outpatient
#Fusiform infrarenal abdominal aortic aneurysm (4.9 cm diameter).
f/u outpt
DVT PPX - on apixaban
Code status - full code
Medically stable for discharge home.
PT recommends SNF -daughter at bedside agreeable for SNF
More than 30 minutes spent in discharge including
Final examination of the patient
Summarizing hospital stay
Instructions for continuing care to all relevant caregivers
Preparation of discharge records, prescriptions, and referral forms
Total time spent (in minutes): 35
Anticipated Discharge: Today
Subjective/Interval History
-
Date of Service: May 16, 2024
Patient seen earlier today. This is a late note entry.
No overnight events.
He remains without shortness of breath.
No dizziness. No chest pain.
Objective Data
-
Vital Signs:
Vital Signs
Temp Pulse Resp BP Pulse Ox
98.6 F 97 18 138/86 95
05/16/24 15:00 05/16/24 15:00 05/16/24 15:00 05/16/24 15:00 05/16/24 15:00
I&O
05/15/24 05/16/24 05/17/24
06:59 06:59 06:59
Intake Total 480 / 480 720 / 720
Balance 480 / 480 720 / 720
Review of Systems
-
Constitutional: Denies Fever
EENT: Denies Sore Throat
Respiratory: Denies Cough
Abdomen/GI: Denies Abdominal Pain, Nausea, Vomiting or Diarrhea
Physical Exam
-
General: Comfortable
HEENT: Moist Mucous Membranes
Respiratory: Clear to Auscultation and Non Labored Respirations; Negative Accessory Resp Muscle Use
Cardiac: S1/S2 and Irregular Rhythm; Negative Tachycardic
GI: Soft
Neuro: AO x 3
== END 2024-05-16 15:06 | DRG 291 ==
LOC: 4 WEST ACU 06:07
PROVIDERS: Emergency Medicine; Internal Medicine; Nurse Practitioner Gerontology; ADMITTING PHYSICIAN Internal Medicine; ATTENDING PHYSICIAN Internal Medicine; CONSULT PHYSICIAN Internal Medicine Cardiovascular Disease; EMERGENCY PHYSICIAN Student in an Organized Health Care Education/Training Program; FAMILY PHYSICIAN Internal Medicine
DX: I13.0 Hypertensive heart and chronic kidney disease with heart failure and stage 1 through stage 4 chronic kidney disease, or unspecified chronic kidney disease (principal); I50.31 Acute diastolic (congestive) heart failure; I50.33 Acute on chronic diastolic (congestive) heart failure; I48.21 Permanent atrial fibrillation; N17.9 Acute kidney failure, unspecified; Z68.1 Body mass index [BMI] 19.9 or less, adult; Z87.891 Personal history of nicotine dependence; Z79.01 Long term (current) use of anticoagulants; N18.9 Chronic kidney disease, unspecified; E11.22 Type 2 diabetes mellitus with diabetic chronic kidney disease; I71.43 Infrarenal abdominal aortic aneurysm, without rupture; Z75.1 Person awaiting admission to adequate facility elsewhere; R63.6 Underweight
CPT/HCPCS: 71046; 76604; 76700; 80053; 83615; 83735; 83880; 84484; 85025; 85027; 87811; 93005; 94640; 96374; 97116; 97162; 97166; 99285

== ENCOUNTER 2024-07-17 17:04 | Inpatient (IN) | payer MEDICARE, OTHER, SELFPAY ==
[2024-07-17] VITALS (7 sets, daily range): BP systolic 108–143; BP diastolic 61–94; BMI 16.7
--- NOTE | 2024-07-17 14:26 | ED.GENMED ---
History of Present Illness
<Mele Bower PA-C - Last Filed: 07/17/24 16:36>
General
Chief Complaint: Swelling
Source: patient and family
Time Seen by Provider: 07/17/24 13:59
History of Present Illness
History of Present Illness:
89-year-old female with past medical history of atrial fibrillation, CHF, COPD/emphysema, previous breast cancer status post left mastectomy presenting to the emergency department at the request of printing table worker, Dr. Ford, for evaluation of
worsening shortness of breath and generalized weakness thought to be related to CHF exacerbation. Patient was supposed to undergo cardiac ablation today for atrial fibrillation however last week at preop testing was noted to have lower extremity
edema, weight gain and worsening shortness of breath, had her Lasix temporarily increased to 60 mg orally that day and 40 mg through the weekend but has not had any relief. Patient denies any fevers or infectious symptoms. Daughter notes that
patient has barely been able to get around with her rollator due to the shortness of breath. No other concerns presently.
Past History
<Mele Bower PA-C - Last Filed: 07/17/24 16:36>
Past History
ED Past Medical History: Arrthythmia (Atrial fibrillation), CAD, Cancer (Breast CA), CHF, COPD, GERD, HTN, Hypercholesterolemia and [place]
ED Past Surgical History: Cardiac (Bypass X 5 Vessels), Gynecological (D&C) and Other (Cataract surgery, Left mastectomy)
Social History
Tobacco: Former smoker
Alcohol: None
Drug: None
Personal:
Living: with family
Employment: Retired
Review of Systems
<Mele Bower PA-C - Last Filed: 07/17/24 16:36>
Review of Systems
All Other Systems: ROS reviewed and negative except as documented in HPI and ROS
Phy Exam
<Mele Bower PA-C - Last Filed: 07/17/24 16:36>
Physical Exam
Physical Exam:
GENERAL: Alert , in no apparent distress, thin
HEAD: NCAT
EYE: conjunctiva clear
NECK: Supple
ENT: o/p clr, mmm.
CARDIAC: Irregularly irregular rate and rhythm, systolic murmur
LUNGS: Clear breath sounds bilaterally, no acute respiratory distress, no wheezes/rales/rhonchi
NEUROLOGICAL: Alert and oriented
SKIN: Warm and dry, skin intact.
MUSCULOSKELETAL: Trace ankle edema bilateral, well perfused.
PSYCH: Normal and appropriate interaction.
Scores
<Mele Bower PA-C - Last Filed: 07/17/24 16:36>
Heart Failure Risk
Heart Failure Risk Score: Yes
History of Stroke or TIA: No
History of intubation for respiratory distress: No
Heart rate on ED arrival >/= 110: No
SaO2 <90% on arrival on room air: No
HR >/=110 during 3min walk test (or too ill to perform test): Yes
ECG has acute ischemic changes: No
Urea >/=12mmol/L (BUN 33.6mg/dL): No
Serum CO2>/=35mmol/L: Yes
Troponin I or T elevated to [place] Level (0.4mg/dL): No
NT-proBNP >/=5,000ng/L (5,000pg/ml): No
HF Risk Score: 4
Admission Status: HIGH RISK 26.1% Consider SNF treatment or admission to hospital
Heart Score for Chest Pain Patients
STEMI patient?: Not applicable
Withdrawal Assessment of Alcohol
Withdrawal Assessment Completed?: Not applicable
Course
<Mele Bower PA-C - Last Filed: 07/17/24 16:36>
Orders/Labs/Results
Orders:
Orders
07/17/24 13:19
ECG [Electrocardiogram (*1)] Urgent
Reason for Study: Palpitations
EKG- Treatment ONCE
07/17/24 14:00
CR Chest - 2 Views Urgent
Comment:
Reason For Exam: edema, weak
07/17/24 14:13
Furosemide [Lasix] 40 mg IV NOW STA
07/17/24 14:28
Complete Blood Count/With Diff Urgent
Comprehensive Metabolic Panel Urgent
NT-proBNP Urgent
Troponin I Urgent
07/17/24 15:41
Urinalysis Reflex To Culture Urgent
Date Specimen was Collected: 07/17/24
Time Specimen was Collected: 15:40
Urine Microscopic Reflex Cult Urgent
Urine Culture Urgent
NELI Source: U
Specimen Description:
Date Specimen was Collected: 07/17/24
Time Specimen was Collected: 15:40
07/17/24 16:05
Admit/Transfer Patient As Directed
Co-Sign Provider:
Level of Care: Inpatient admission
Assign to:: Telemetry
Physician / Group: dayne
Diagnosis: CHF exacerbation
Reason for Telemetry: Subacute Heart Failure
Date to Stop Telemetry: 07/19/24
Time to Stop Telemetry: 11:00
Reason for Hospitalization: CHF exacerbation
Expected length of stay greater than two midnights?: Yes
ELOS- Estimated Length of Stay in days: 3
I certify the patient meets the requirements for IP care: Yes
07/17/24 16:06
Code Status As Directed
Resuscitation Status: Do not resuscitate
Reached after discussion with pt or family/Healthcare POA: Yes
DNR Bracelet Application ONCE
PRN Pain Medication Management As Directed
May give lesser potent ordered pain med per pt: Yes
preference::
Protocol:: Medication orders for pain may be administered in a
manner that supports deferring to patient preference
when the pt is:
- Requesting an ordered lesser potent pain medication.
Least to most potent pain medications are defined
as: acetaminophen < NSAID < tramadol < opioids
(morphine, oxycodone, hydromorphone).
- Requesting a lesser dose of the same medication IF
ORDERED.
- Requesting a less intrusive route of administration
if both routes are prescribed by the provider (PO <
IV).
07/17/24 16:14
CefTRIAXone [Rocephin] 1,000 mg IV NOW STA
07/19/24 11:00
DC Protocol for Telemetry ONCE
Abnormal Lab Results
07/17/24 07/17/24
14:28 15:41
Hgb 11.8 L g/dL
(12.0-16.0)
MCHC 29.9 L g/dL
(33.0-37.0)
RDW 29.3 H %
(11.5-14.5)
Absolute Lymphs (auto) 0.9 L 10^3/uL
(1.2-3.4)
Absolute Monos (auto) 0.7 H 10^3/uL
(0.1-0.6)
Lymphocytes % 15.5 L %
(20.5-51.1)
Monocytes % 11.1 H %
(1.7-9.3)
Chloride 97 L mmol/L
(98-107)
Carbon Dioxide 39 H mmol/L
(22-30)
BUN 22 H mg/dl
(7-17)
Calcium 8.1 L mg/dl
(8.4-10.2)
AST 41 H U/L
(14-36)
Alkaline Phosphatase 196 H U/L
(38-126)
Total Protein 5.6 L g/dl
(6.3-8.2)
Albumin 2.8 L g/dl
(3.5-5.0)
Ur Occult Blood Reflex 4+ A
(Negative)
Leukocyte Esterase Rfl 3+ A
(Negative)
Urine RBC 90-100 A /HPF
(0-2)
Urine WBC (Reflex) 30-40 A /HPF
(0-5)
Urine Bacteria (Reflex) Many A
(Negative)
Urine Glucose 2+ A
(Negative)
Urine Albumin (Reflex) 3+ A
(Neg - Trace)
07/17/24 14:28
07/17/24 14:28
Vital Signs
Initial and Last Documented VS:
Initial Vital Signs
Temp Pulse Resp BP Pulse Ox
97.5 F 81 18 130/86 96
07/17/24 13:09 07/17/24 13:09 07/17/24 13:09 07/17/24 13:09 07/17/24 13:09
Last Documented Vital Signs
Temp Pulse Resp BP Pulse Ox
97.5 F 80 13 122/70 96
07/17/24 13:09 07/17/24 15:30 07/17/24 15:30 07/17/24 15:07 07/17/24 15:30
<Kieran Benson MD - Last Filed: 07/17/24 16:14>
Orders/Labs/Results
Orders:
Orders
07/17/24 13:19
ECG [Electrocardiogram (*1)] Urgent
Reason for Study: Palpitations
EKG- Treatment ONCE
07/17/24 14:00
CR Chest - 2 Views Urgent
Comment:
Reason For Exam: edema, weak
07/17/24 14:13
Furosemide [Lasix] 40 mg IV NOW STA
07/17/24 14:28
Complete Blood Count/With Diff Urgent
Comprehensive Metabolic Panel Urgent
NT-proBNP Urgent
Troponin I Urgent
07/17/24 15:41
Urinalysis Reflex To Culture Urgent
Date Specimen was Collected: 07/17/24
Time Specimen was Collected: 15:40
Urine Microscopic Reflex Cult Urgent
Urine Culture Urgent
NELI Source: U
Specimen Description:
Date Specimen was Collected: 07/17/24
Time Specimen was Collected: 15:40
07/17/24 16:05
Admit/Transfer Patient As Directed
Co-Sign Provider:
Level of Care: Inpatient admission
Assign to:: Telemetry
Physician / Group: dayne
Diagnosis: CHF exacerbation
Reason for Telemetry: Subacute Heart Failure
Date to Stop Telemetry: 07/19/24
Time to Stop Telemetry: 11:00
Reason for Hospitalization: CHF exacerbation
Expected length of stay greater than two midnights?: Yes
ELOS- Estimated Length of Stay in days: 3
I certify the patient meets the requirements for IP care: Yes
07/17/24 16:06
Code Status As Directed
Resuscitation Status: Do not resuscitate
Reached after discussion with pt or family/Healthcare POA: Yes
DNR Bracelet Application ONCE
PRN Pain Medication Management As Directed
May give lesser potent ordered pain med per pt: Yes
preference::
Protocol:: Medication orders for pain may be administered in a
manner that supports deferring to patient preference
when the pt is:
- Requesting an ordered lesser potent pain medication.
Least to most potent pain medications are defined
as: acetaminophen < NSAID < tramadol < opioids
(morphine, oxycodone, hydromorphone).
- Requesting a lesser dose of the same medication IF
ORDERED.
- Requesting a less intrusive route of administration
if both routes are prescribed by the provider (PO <
IV).
07/17/24 16:14
CefTRIAXone [Rocephin] 1,000 mg IV NOW STA
07/19/24 11:00
DC Protocol for Telemetry ONCE
Abnormal Lab Results
07/17/24 07/17/24
14:28 15:41
Hgb 11.8 L g/dL
(12.0-16.0)
MCHC 29.9 L g/dL
(33.0-37.0)
RDW 29.3 H %
(11.5-14.5)
Absolute Lymphs (auto) 0.9 L 10^3/uL
(1.2-3.4)
Absolute Monos (auto) 0.7 H 10^3/uL
(0.1-0.6)
Lymphocytes % 15.5 L %
(20.5-51.1)
Monocytes % 11.1 H %
(1.7-9.3)
Chloride 97 L mmol/L
(98-107)
Carbon Dioxide 39 H mmol/L
(22-30)
BUN 22 H mg/dl
(7-17)
Calcium 8.1 L mg/dl
(8.4-10.2)
AST 41 H U/L
(14-36)
Alkaline Phosphatase 196 H U/L
(38-126)
Total Protein 5.6 L g/dl
(6.3-8.2)
Albumin 2.8 L g/dl
(3.5-5.0)
Ur Occult Blood Reflex 4+ A
(Negative)
Leukocyte Esterase Rfl 3+ A
(Negative)
Urine RBC 90-100 A /HPF
(0-2)
Urine WBC (Reflex) 30-40 A /HPF
(0-5)
Urine Bacteria (Reflex) Many A
(Negative)
Urine Glucose 2+ A
(Negative)
Urine Albumin (Reflex) 3+ A
(Neg - Trace)
07/17/24 14:28
07/17/24 14:28
Vital Signs
Initial and Last Documented VS:
Initial Vital Signs
Temp Pulse Resp BP Pulse Ox
97.5 F 81 18 130/86 96
07/17/24 13:09 07/17/24 13:09 07/17/24 13:09 07/17/24 13:09 07/17/24 13:09
Last Documented Vital Signs
Temp Pulse Resp BP Pulse Ox
97.5 F 80 13 122/70 96
07/17/24 13:09 07/17/24 15:30 07/17/24 15:30 07/17/24 15:07 07/17/24 15:30
<Mele Bower PA-C - Last Filed: 07/17/24 16:36>
MDM/Problems Addressed
Differential Diagnosis Includes:
Valvular dysfunction, volume overload, COPD exacerbation, less concern for infectious etiology
MDM/Problems Addressed:
89-year-old female presenting to the emergency department for evaluation at the request of cardiology for increasing shortness of breath, exertional dyspnea and generalized weakness. Had temporary increase to Lasix but symptoms persist. Patient
with minimal edema on exam however given her age and physical exam finding of systolic murmur possibility of CHF due to valvular dysfunction considered. Daughter notes she has not had a recent echocardiogram. Was scheduled to undergo cardiac
ablation today. Anticipate need for admission with cardiology team in consult. Labs and chest x-ray ordered.
Chronic conditions affecting care: Other (CHF)
<Mele Bower PA-C - Last Filed: 07/17/24 16:36>
*Radiology
Radiology exam reviewed: preliminary read by ED provider (Bilateral pleural effusion)
*Pulse Oximetry
Patient hypoxic: no
*EKG
Heart Rate: 84
Rate: normal
Rhythm: a-fib
QRS Pattern: right bundle branch block
*[employer] Interpretation
Rate: normal
Rhythm: a-fib
*Critical Care Note
Total Time (30-74mins, 75-104mins- exclusive of procedures): Not Applicable
Data Reviewed
Review of Other/Old Records Reveals: Labs and Records
<Mele Bower PA-C - Last Filed: 07/17/24 16:36>
Patient Management
Discussion with other providers: Hospitalist and Refrigeration Specialist
Escalation/DeEscalation of care consider admission/obs:
Patient's chest x-ray shows bilateral pleural effusion left greater than right. BNP is over 3000 however patient has had more elevated BNP's in the past. Troponin is within normal limits. Given patient sent to the ER by cardiology will plan for
admission for further evaluation and treatment. Patient will likely need updated echocardiogram. 40 mg Lasix IV ordered. Patient otherwise stable. Hospitalist team accepts. Cardiology team to consult.
ED Attending Note
<Mele Bower PA-C - Last Filed: 07/17/24 16:36>
-
Portions of this chart may have been created with voice recognition software.� Occasional wrong word or��sound alike� substitutions may have occurred due to the inherent limitations of voice recognition software.
<Kieran Benson MD - Last Filed: 07/17/24 16:14>
ED Attending Note
Patient seen and examined by attending physician: Yes
ED Attending Note:
I have seen and evaluated the patient with a [id number] encounter. I have spoken to the advance practicer provider and involved in the medical history, the physical exam, medical decision making.
Evaluation and management service: agree unless noted differently below.
Results interpretation: agree unless noted differently below.
Focused HPI: 89-year-old female with history as noted presents to the ER sent in with concern for CHF�has had increased generalized weakness some mild shortness of breath and weight gain over the past 1-1/2 weeks. She is on Lasix and reports
compliance. She denies any chest pain or any other complaints.
Physical exam: Awake alert oriented. Vital signs normal here. She has systolic murmur on cardiac auscultation. Breath sounds diminished at the lung bases. No JVD appreciated. +1 edema in the legs bilaterally. Abdomen nontender.
Medical Decision Makin-year-old female presents with generalized weakness, mild shortness of breath and weight gain despite outpatient Lasix. Vitals and exam as above. Labs sent off significant for proBNP 3000. Chest x-ray shows moderate left
pleural effusion, slight right pleural effusion atelectasis but no clear pneumonia and no antonietta edema. Her urinalysis was positive for bacteria and pyuria with RBCs as well. Suspect that her symptoms are primarily related to CHF will provide
diuresis. Cover with antibiotics for possible UTI. Admit for continued care.
Discharge Plan
Departure
Patient Disposition: Admit
Date of Disposition: 07/17/24
Time of Disposition: 15:14
Presentation/result/management discussed w/ accepting MD/DO: Hospitalist
Discharge Problem:
Shortness of breath, Pleural effusion
Prescriptions:
No Action
atorvastatin 40 mg Tablet
40 mg PO HS
rabeprazole 20 mg Tablet,Delayed Release (Dr/Ec)
20 mg PO DAILY
tiotropium bromide [Spiriva with HandiHaler] 18 mcg Capsule, W/Inhalation Device
1 cap INHALATION R DAILY
cholecalciferol (vitamin D3) 25 mcg (1,000 unit) Tablet
25 mcg PO DAILY
Jardiance 10 mg Tablet
10 mg PO DAILY
amiodarone 200 mg tablet
200 mg PO DAILY
therapeutic multivitamin Tablet
1 tab PO DAILY
docusate sodium [Stool Softener] 100 mg Capsule
100 mg PO DAILY
Eliquis 2.5 mg Tablet
2.5 mg PO BID
metoprolol succinate 50 mg tablet extended release 24 hr
25 mg PO BID
furosemide [Lasix] 20 mg tablet
20 mg PO DAILY
potassium chloride 20 mEq Tablet Extended Release
20 meq PO DAILY
ferrous sulfate 134 mg (27 mg iron) Tablet
134 mg PO DAILY
calcium carbonate-vitamin D3 600 mg-20 mcg (800 unit) Tablet
1 tab PO BID
Referrals:
Bowen Townsend, DO [Family Provider] -
Interventions
Interventions:
*Risk Screen - Suicide Last Done: 07/17/24 13:09
*General Assessment Last Done: 07/17/24 15:39
*Neglect/Abuse Screening Last Done: 07/17/24 13:09
*ED- Fall Risk Assessment Last Done: 07/17/24 15:39
*ED COVID-19 Vaccine History Last Done: 07/17/24 13:09
ED- Cardiac Assessment Last Done: 07/17/24 14:20
ED- Pulmonary Assessment Last Done: 07/17/24 14:20
ED-Skin Assessment Last Done: 07/17/24 14:20
Discharge Date and Time
Print Language: UPPER SORBIAN
[2024-07-17] MEDS: LASIX 40 MG IV (14:53)
[2024-07-17 14:54] LABS: ALT (SGPT) 26 U/L (0-35); AST (SGOT) 41 U/L (14-36); Albumin 2.8 g/dl (3.5-5.0); Alkaline Phosphatase 196 U/L (38-126); Blood Urea Nitrogen 22 mg/dl (7-17); Calcium 8.1 mg/dl (8.4-10.2); Chloride 97 mmol/L (98-107); Glucose 87 mg/dl (70-99); Potassium 3.5 mmol/L (3.5-5.1); Sodium 139 mmol/L (135-145); Total Bilirubin 1.3 mg/dl (0.2-1.3); Total Protein 5.6 g/dl (6.3-8.2); eGFR 54.19
[2024-07-17 14:57] LABS: % Basophils 0.5 % (0-2); % Eosinophils 0.7 % (0-6); % Immature Granulocytes 0.2 % (0-0.5); % Lymphocytes 15.5 % (20.5-51.1); % Monocytes 11.1 % (1.7-9.3); Absolute Lymphocytes 0.9 10^3/uL (1.2-3.4); Absolute Monocytes 0.7 10^3/uL (0.1-0.6); Absolute Neutrophils 4.3 10^3/uL (1.4-6.5); Hematocrit 39.4 % (37.0-47.0); Hemoglobin 11.8 g/dL (12.0-16.0); Mean Corp Hgb Conc. 29.9 g/dL (33.0-37.0); Mean Corpuscular Hgb 27.8 pg (27.0-31.0); Mean Corpuscular Volume 92.9 fL (81.0-99.0); Nucleated Red Blood Cells % 0 %; Platelet Count 154 10^3/uL (130-400); Red Blood Cell Count 4.24 10^6/uL (4.20-5.40); Red Cell Dist. Width 29.3 % (11.5-14.5)
[2024-07-17 15:06] LABS: Carbon Dioxide 39 mmol/L (22-30); NT-proBNP 3010 pg/ml; Troponin I 0.027 ng/ml
--- NOTE | 2024-07-17 15:37 | HPS.HSE ---
Addendum entered and electronically signed by Vincent Sanchez MD 07/17/24 16:19:
see update note for addendum
Original Note:
Family Physician
-
Family Physician: Bowen Townsend
Chief Complaint
-
sob
progressively weaker
History of Present Illness
89-year-old female with past medical history of atrial fibrillation, CHF, COPD/emphysema, previous breast cancer status post left mastectomy presenting to the emergency department at the request of clinical trials manager, Dr. Ford, for evaluation of
worsening shortness of breath and generalized weakness thought to be related to CHF exacerbation. Patient was supposed to undergo cardiac ablation today for atrial fibrillation however last week at preop testing was noted to have lower extremity
edema, weight gain and worsening shortness of breath, had her Lasix temporarily increased to 60 mg orally that day and 40 mg through the weekend but has not had any relief.as per daughter, patient is progressively getting weaker. sob with very
minimum exertion. she has not walked since Monday due to sob and weakness. Patient denied any headache, dizzy or syncope. Patient denied chest pain. Patient denied abdominal pain, nausea, vomiting, diarrhea. Patient denied dysuria, hematuria
BNP 3010. Chest x-ray with moderate left pleural effusion, small right pleural effusion, paranoid opacity within the lower lungs. Patient received a dose of Lasix in ER. Admitting for further management
Medical History
Past Medical History
Past Medical History: Reports Other
Additional Past Medical History:
Paroxysmal A-fib
Chronic obstructive pulmonary disease
Pleural effusion
Heart failure
GERD
AAA
Hypertension
Breast cancer
CAD
Type 2 diabetes
Right bundle branch block
Past Surgical History: Reports Other
Additional Past Surgical History:
Left breast mastectomy
Coronary artery bypass graft
Cardioversion x 2
Social History
Tobacco: Former Smoker
Alcohol: None
Drug: None
Personal: Single
Living: With Family
Family History
Family History: Not pertinent
Allergies / Home Medications
Allergies reflects when Allergies were last updated in [employer].
Home Medications with original date entered in [employer]
Allergy/Medication List:
Allergies
Allergy/AdvReac Type Severity Reaction Status Date / Time
No Known Allergies Allergy Verified 07/17/24 13:18
Home Medications
atorvastatin 40 mg tablet 40 mg PO HS High Cholesterol 09/04/23
calcium 600 mg (as carbonate)-vitamin D3 10 mcg (400 unit) tablet (Calcium 600 + D(3)) 1 tab PO BID Supplement 09/04/23
cholecalciferol (vitamin D3) 25 mcg (1,000 unit) tablet 25 mcg PO DAILY Supplement 09/04/23
rabeprazole 20 mg tablet,delayed release 20 mg PO DAILY Gastrointestinal Issue 09/04/23
tiotropium bromide 18 mcg capsule with inhalation device (Spiriva with HandiHaler) 1 cap inhalation R DAILY Lung/Breathing Issues 09/04/23
amiodarone 200 mg tablet 200 mg PO DAILY afib 01/16/24
empagliflozin 10 mg tablet (Jardiance) 10 mg PO DAILY Heart Failure 01/16/24
apixaban 2.5 mg tablet (Eliquis) 2.5 mg PO BID afib 04/12/24
docusate sodium 100 mg capsule (Stool Softener) 100 mg PO DAILYPRN PRN constipation 04/12/24
therapeutic multivitamin 1 tab PO DAILY Supplement 04/12/24
metoprolol succinate 50 mg tablet,extended release 24 hr 25 mg PO BID Blood Pressure 05/10/24
ferrous sulfate 325 mg (65 mg iron) tablet (iron) 325 mg PO DAILY 07/02/24
furosemide 20 mg tablet (Lasix) 20 mg PO MOWEFR 07/02/24
potassium chloride 20 mEq tablet,extended release 20 meq PO MOWEFR 07/02/24
Review of Systems
-
Constitutional: Reports No Symptoms
EENT: Reports No Symptoms
Respiratory: Reports Trouble Breathing
Cardiac: Reports No Symptoms
Abdomen/GI: Reports No Symptoms
: Reports No Symptoms
Musculoskeletal: Reports Edema (Bilateral lower extremities with)
Skin: Reports No Symptoms
Neurological: Reports Weakness
Endocrine: Reports No Symptoms
Hematologic/Lymphatic: Reports No Symptoms
Psych: Reports No Symptoms
Physical Exam
Vital Signs
Vital Signs
Temp Pulse Resp BP Pulse Ox
97.5 F 82 17 130/86 100
07/17/24 13:09 07/17/24 15:00 07/17/24 15:00 07/17/24 13:09 07/17/24 15:00
Physical Exam
General: Well Developed, Well Nourished and No Apparent Distress
HEENT: NormoCephalic, Moist mucous membranes and Atraumatic
Respiratory: Clear and Decreased Breath Sounds
Cardiac: S1/S2 and Regular Rhythm; No Murmur or Rub
GI: Soft, Non Tender, Non Distended and Normal Bowel Sounds; No Organomegaly
Rectal: Deferred by Provider
Musculoskeletal: No Clubbing, No Cyanosis, No Edema and Other (Bilateral lower extremities with)
Skin: No Rash
Neuro: AO x 3 and Nonfocal/grossly intact
Psych: Calm
Laboratory Results
-
07/17/24 14:28
07/17/24 14:28
Laboratory Results
Total Bilirubin 1.3 mg/dl (0.2-1.3) 07/17/24 14:28
AST 41 U/L (14-36) H 07/17/24 14:28
ALT 26 U/L (0-35) 07/17/24 14:28
Alkaline Phosphatase 196 U/L (38-126) H 07/17/24 14:28
Troponin I 0.027 ng/ml 07/17/24 14:28
Data Reviewed
-
Diagnostic Radiology: Report Reviewed by me
Lab Data: Labs Reviewed by me
Impression/Plan
-
# Worsening weakness/exertional dyspnea possibly CHF exacerbation
#Moderate pleural effusion#
- Chest x-ray with impression of Moderate left pleural effusion appears increased compared to radiograph of May 10, 2024.Small right pleural effusion, unchanged.Parenchymal opacity within the lower lungs, most likely atelectasis.
-BNP 3010
-Diuretic discontinued
-Strict LIVE
-Lasix 40 IV twice a day
-Obtain echocardiogram
-IR consulted for thoracentesis
-Cardiology consulted
-Jardiance continued
#UTI
-urine culture pending
-ceftriaxone continued
# Anemia likely from chronic disease
-Hemoglobin stable at 11.8
-No active bleeding
-Continue to monitor
-Ferrous sulfate
# Permanent A-fib
-Supposed to get a cardiac ablation
-EKG with A-fib
-Amiodarone, Eliquis, metoprolol continue
# Hyperlipidemia
-Statin
#Fusiform infrarenal abdominal aortic aneurysm (4.9 cm diameter).
DVT PPX - on apixaban
Code status -DNR
--- NOTE | 2024-07-17 15:40 | W.PN.UPDATE ---
Update Note
Progress Note Update
I saw and examined the patient.
The HEAD OPERATOR Isra's note was reviewed and I agree with the note.
Comment: 89 y/o F hx of CAD s/p CABG, HTN, T2DM, valvular HD, Persistent Afib on Eliquis presents to ER from Cardiology office. She was scheduled for an ablation procedure today but sent in for evaluation of SOB and weakness. Recently during pre-op
testing she was found to have LE edema and her oral diuretic doses were increased. Per family since those increases, patient has not been able to get around due to CHOPRA and weight gain. Denies chest pain or any other complaints.
ER gave IV Lasix and admitted with cardiology consult.
Exam:
General: Well Developed, Well Nourished and No Apparent Distress
HEENT: Normocephalic, Moist mucous membranes and Atraumatic
Respiratory: Clear and Decreased Breath Sounds
Cardiac: S1/S2 and Regular Rhythm; No Murmur or Rub
GI: Soft, Non Tender, Non Distended and Normal Bowel Sounds; No Organomegaly
Rectal: Deferred by Provider
Musculoskeletal: No Clubbing, No Cyanosis, No Edema and Other (Bilateral lower extremities with)
Skin: No Rash
Neuro: AO x 3 and Nonfocal/grossly intact
Psych: Calm
Assessment:
Acute on chronic HFpEF
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
- IV Lasix - requires intensive monitoring of I/OS, lytes
- Cardiology consult
- may need updated Echo
L sided pleural effusion
- consult IR for thoracentesis; labs ordered
Abnormal UA concern for UTI
- continue Rocephin until culture results
Persistent A.fib/atypical flutter/tach
- continue Eliquis
- continue Amiodarone/BB
hx of CAD s/p CABG
Essential HTN
- continue BP meds
T2DM
- continue Jardiance
- SSI and accu-checks
HLD - statin
Fusiform infrarenal abdominal aortic aneurysm (4.9 cm diameter)
DVT ppx: Eliquis
Code: Full
[2024-07-17 15:50] LABS: Urine Albumin 3+ (Neg - Trace); Urine Bilirubin Negative (Negative); Urine Character Clear (Clear); Urine Color Yellow; Urine Glucose 2+ (Negative); Urine Ketone Negative (Negative); Urine Leukocyte 3+ (Negative); Urine Nitrite Negative (Negative); Urine Occult Blood 4+ (Negative); Urine Urobilinogen Negative (Neg - 1+)
[2024-07-17 15:59] LABS: Urine Bacteria Many (Negative); Urine Red Blood Cell 90-100 /HPF (0-2); Urine Squamous Cell 0-2 /LPF (Few); Urine White Cell 30-40 /HPF (0-5)
--- NOTE | 2024-07-17 16:12 | CON.CAR ---
Addendum entered and electronically signed by Kiko Ford DO 07/17/24 17:00:
I saw and examined the patient.
The Stave Cutter's note was reviewed and I agree with the note.
Comment:
GENERAL: no acute distress, cachectic
EYE: sclera anicteric
NECK: Supple, + JVD, no carotid bruit appreciated
ENT: normal nose, moist mucosal membranes
CARDIAC: irregularly irregular, +S1/S2, 3/6 apical holosystolic murmur; no rubs, or gallops
CHEST/PULMONARY: Normal effort, absent breath sound L base, decreased L apex; decreased right breath sounds; mild crackles
ABDOMEN: Soft, without focal tenderness or distention
NEUROLOGICAL: Alert and oriented x3
SKIN: Warm and dry, no rash; trace BL LE edema
PSYCH: Normal and appropriate interaction.
TELE AF HR <100; EKG AF 84 bpm RBBB
A/P as below
Patient presents with acute on chronic HFPEF. Prior documentation noted mod-sev MR, pHTN. Patient previously on 20 mg lasix MWF; recurrent hospitalizations for HF. Patient recently seen in office with worsening SOB and weakness; with lack of
improvement patient referred to ED for evaluation.
Repeat echocardiogram to reassess MR, pHTN, and LVEF
IV diuresis; intake and output, monitor renal function/electrolytes
Unclear new weakness, appreciate input by primary service
Patient has persistent AF without reported symptoms. HR remains well controlled < 110 while active and noted to be 70-90 bpm on telemetry in ED. 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
age, comorbidities, I would prioritize medical therapy first. Patient currently on amiodarone and metoprolol.
Remains on eliquis 2.5 mg twice daily for stroke risk reduction ([id number]); reduced dosing due to age 89, creatinine 0.9, weight 51 kg
Original Note:
Consultation
Consultation Request
Date/Time Consultation Requested: 07/17/24
Date/Time Consultation Performed: 07/17/24
Requesting Provider: Cheli JARQUIN in the ER
Performing Provider: Dr. Ford
Reason for Consultation: Acute HF, persistent Afib
Medical History
-
History of Present Illness:
Patient came to [facility] today with weakness and CHOPRA and is now being admitted with acute HF and cardiology is being consulted. Patient lives with her daughter and son in law, her son in law is Dr. Bowen Townsend. Patient has a h/o CABG in 1997. In 2018
she had CV and amiodarone loading for Afib, then at her Dr. Kelly office visit 08/08/23 she was noted to be in Afib, but denied palpitations, chest pain or SOB. Patient then had CV 09/07/23, but recurred with Afib and had another CV 01/16/24. Patient was
seen in the office for EP consultation on 03/25/2024 and they discussed ablation, but it was felt that since the patient was largely asymptomatic with her AF that no definitive plans were made and of note patient was in SR at that time. Patient
spent time reviewing the material provided to her after the 03/25/2024 OV and had started to decide on her own that she wanted to pursue ablation, but this was sidetracked due to admission for GIB 04/2024 and was in Afib throughout that admission.
Eliquis was eventually restarted and patient was then admitted with acute HF 05/2024 and again was in Afib throughout. Patient was seen in the office 05/20/24 and remained interested in Afib so PA in the office coordinated with EP and directions were
given for PATs and to also schedule another EP office visit given the interval GIB and CHF admissions, but the EP appt was never scheduled by the office. Patient was at [facility] last week and appeared to be in acute HF prompting office visit 07/11/24 and
increased Lasix PO dosing. Patient is now lower than previous dry weight and reports she barely eats and has not appetite. She has CHOPRA and feels too weak to move.
PMH:
Chronic HFpEF
Recent admission for acute HFpEF 05/10/2024 until 05/16/2024
Recent admission for GIB 04/12/2024 until 04/17/2024
Chronic Eliquis OAC
Persistent Afib/atypical flutter/tach
s/p CV 09/07/23, 01/16/24
Chronic amiodarone therapy
Severe MR/TR
Pleural effusion
s/p left sided thoracentesis 09/05/23
re evaluated in IR, not enough fluid for thora 05/10/24
CAD
s/p CABG with AZAR to LAD, SCG to PDA, SVG to OM, SVG to distal OM and DVG to Diag 1997
HTN
h/o orthostasis and syncope 2018
Hyperlipidemia
RBBB
DM 2
Paralyzed left hemidiaphragm
Past Medical History
Past Medical History: Other (in HPI)
Past Surgical History: Cardiac (CABG 1997) and Gynecological (left mastectomy)
Social History
Tobacco: Former Smoker
Alcohol: None
Drug: None
Living: With Family (she lives with her daughter and son in law)
Family History
Family History: CAD
Allergies / Home Medications
Allergy/AdvReac Type Severity Reaction Status Date / Time
No Known Allergies Allergy Verified 07/17/24 13:18
�Medication �Instructions �Recorded �Confirmed �Type
atorvastatin 40 mg tablet 40 mg PO HS High Cholesterol 09/04/23 07/02/24 History
calcium 600 mg (as 1 tab PO BID Supplement 09/04/23 07/02/24 History
carbonate)-vitamin D3 10 mcg (400
unit) tablet (Calcium 600 + D(3))
cholecalciferol (vitamin D3) 25 25 mcg PO DAILY Supplement 09/04/23 07/02/24 History
mcg (1,000 unit) tablet
rabeprazole 20 mg tablet,delayed 20 mg PO DAILY Gastrointestinal 09/04/23 07/02/24 History
release Issue
tiotropium bromide 18 mcg capsule 1 cap inhalation R DAILY 09/04/23 07/02/24 History
with inhalation device (Spiriva Lung/Breathing Issues
with HandiHaler)
amiodarone 200 mg tablet 200 mg PO DAILY afib 01/16/24 07/02/24 History
empagliflozin 10 mg tablet 10 mg PO DAILY Heart Failure 01/16/24 07/02/24 History
(Jardiance)
apixaban 2.5 mg tablet (Eliquis) 2.5 mg PO BID afib 04/12/24 07/02/24 History
docusate sodium 100 mg capsule 100 mg PO DAILYPRN PRN constipation 04/12/24 07/02/24 History
(Stool Softener)
therapeutic multivitamin 1 tab PO DAILY Supplement 04/12/24 07/02/24 History
metoprolol succinate 50 mg 25 mg PO BID Blood Pressure 05/10/24 07/02/24 History
tablet,extended release 24 hr
ferrous sulfate 325 mg (65 mg 325 mg PO DAILY 07/02/24 07/02/24 History
iron) tablet (iron)
furosemide 20 mg tablet (Lasix) 20 mg PO MOWEFR 07/02/24 07/02/24 History
potassium chloride 20 mEq 20 meq PO MOWEFR 07/02/24 07/02/24 History
tablet,extended release
Review of Systems
-
History Source: Patient and Family (daughter, Kamini, sitting bedside)
All other systems: Negative unless noted
Physical Exam
Vital Signs
Temp Pulse Resp BP Pulse Ox
97.5 F 80 13 122/70 96
07/17/24 13:09 07/17/24 15:30 07/17/24 15:30 07/17/24 15:07 07/17/24 15:30
GEN: NAD. AAOx3, thin
HEENT: EOMI, wearing glasses
LUNGS: RA. No audible wheeze
CV: Afib on tele. +2-3 AHSM
ABD: ND, NT, soft
EXT: +1 B/L LE edema. No lesions B/L
NEURO: Gross non-focal
SKIN: Warm, dry and pink. No rash
Lab Results
07/17/24 14:28
07/17/24 14:28
Troponin I 0.027 ng/ml 07/17/24 14:28
Nri-D-Eqaenayjnib Pept 3010 pg/ml 07/17/24 14:28
Impression / Plan
-
PCP: Dr. Townsend
Cardiology: Dr. CHARLA Kelly
Impression:
Admitted with generalized weakness and acute HF 07/17/24
Acute on chronic HFpEF
LE edema
Weight loss
Moderate-sized left pleural effusion, small right pleural effusion by CXR 07/17/2024
Recent admission for acute HFpEF 05/10/2024 until 05/16/2024
Recent admission for GIB 04/12/2024 until 04/17/2024
Chronic Eliquis OAC
Persistent Afib/atypical flutter/tach
s/p CV 09/07/23, 01/16/24
Chronic amiodarone therapy
Severe MR/TR
Pleural effusion
s/p left sided thoracentesis 09/05/23
re evaluated in IR, not enough fluid for thora 05/10/24
CAD
s/p CABG with AZAR to LAD, SCG to PDA, SVG to OM, SVG to distal OM and DVG to Diag 1997
HTN
h/o orthostasis and syncope 2018
Hyperlipidemia
RBBB
DM 2
Paralyzed left hemidiaphragm
Echo 08/31/23: EF 50-55%, mild conc LVH, enlarged RV size, sev MR, aortic sclerosis without stenosis, sev TR with PAP 50-55 mmHg, no pericardial effusion
Echo 12/08/23: EF 53%, mild concentric LVH, stage II diastolic dysfunction, normal RV size/function, moderate to severe MR, trace aortic regurgitation
Plan:
-Patient came to [facility] today with weakness and CHOPRA and is now being admitted with acute HF and cardiology is being consulted. Patient lives with her daughter and son in law, her son in law is Dr. Bowen Townsend. Patient has a h/o CABG in 1997. In
2018 she had CV and amiodarone loading for Afib, then at her Dr. Kelly office visit 08/08/23 she was noted to be in Afib, but denied palpitations, chest pain or SOB. Patient then had CV 09/07/23, but recurred with Afib and had another CV 01/16/24.
Patient was seen in the office for EP consultation on 03/25/2024 and they discussed ablation, but it was felt that since the patient was largely asymptomatic with her AF that no definitive plans were made and of note patient was in SR at that time.
Patient spent time reviewing the material provided to her after the 03/25/2024 OV and had started to decide on her own that she wanted to pursue ablation, but this was sidetracked due to admission for GIB 04/2024 and was in Afib throughout that
admission. Eliquis was eventually restarted and patient was then admitted with acute HF 05/2024 and again was in Afib throughout. Patient was seen in the office 05/20/24 and remained interested in Afib so PA in the office coordinated with EP and
directions were given for PATs and to also schedule another EP office visit given the interval GIB and CHF admissions, but the EP appt was never scheduled by the office. Patient was at [facility] last week and appeared to be in acute HF prompting office
visit 07/11/24 and increased Lasix PO dosing. Patient is now lower than previous dry weight and reports she barely eats and has not appetite. She has CHOPRA and feels too weak to move.
-ECG reviewed by me shows Afib with HR 88
-Talked with patient and finally got to meet her daughter, Kamini, in person. Reviewed that the EP office visit was missed and offered my apologies for the lapse. Reviewed that current plan is for diuresis and ongoing evaluation to determine if
ablation is still appropriate.
-Check echo
-Lasix 20 mg IV BID diuresis
-Cont Toprol XL 25 mg BID
-Cont Jardiance 10 mg daily[facility]
-Remains in Afib that is persistent at this point. Patient had GIB during 04/12/24 until 04/17/24 admission, but has been back on Eliquis 2.5 mg BID (age 89, Cre 0.9, wt 50.89 kg) since 04/17/24 without recurrent bleeding. Patient had CV 09/07/23 then
recurred with Afib and had another CV 01/16/24. Patient was seen in the office for EP consultation on 03/25/2024 and they discussed ablation, but it was felt that since the patient was largely asymptomatic with her AF that no definitive plans were
made and of note patient was in SR at that time. Patient is still interested in ablation if she is a candidate, but not clear that Afib is driving this clinical picture.
-Cont long-term amiodarone 200 mg daily for adjunct rate control
[2024-07-17] MEDS: ROCEPHIN 1000 MG IV (16:37)
--- NOTE | 2024-07-17 19:34 | PTCARENOTE ---
Patient and family requesting patient to see a luis for communion. Patient's daughter also states that patient has bright red blood when she has a bm.
[2024-07-17] MEDS: OSCAL 500 + D 500 MG PO (20:02)
[2024-07-17] MEDS: TOPROL XL 25 MG PO (20:02)
[2024-07-17] MEDS: ELIQUIS 2.5 MG PO (20:02)
[2024-07-17] MEDS: LIPITOR 40 MG PO (20:05)
[2024-07-17 22:45] LABS: Hematocrit 38.5 % (37.0-47.0)
[2024-07-17 23:02] LABS: Glucose 106 mg/dl (70-99); LDH 366 U/L (120-246); Total Protein 5.6 g/dl (6.3-8.2)
[2024-07-18] VITALS (10 sets, daily range): BP systolic 65–123; BP diastolic 57–76; PULSE 89–97; O2SAT 97; BMI 17.1
[2024-07-18 06:24] LABS: Hematocrit 39.4 % (37.0-47.0); Hemoglobin 11.9 g/dL (12.0-16.0); Mean Corp Hgb Conc. 30.2 g/dL (33.0-37.0); Mean Corpuscular Hgb 27.5 pg (27.0-31.0); Mean Platelet Volume 10.1 fL (7.4-10.4); Platelet Count 156 10^3/uL (130-400); Red Blood Cell Count 4.33 10^6/uL (4.20-5.40); White Blood Cell Count 8.5 10^3/uL (4.8-10.8)
[2024-07-18 06:54] LABS: Blood Urea Nitrogen 23 mg/dl (7-17); Calcium 8.1 mg/dl (8.4-10.2); Carbon Dioxide 34 mmol/L (22-30); Chloride 98 mmol/L (98-107); Estimated Creatinine Clearance 31 ml/min; Glucose 77 mg/dl (70-99); HDL Cholesterol 29 mg/dl; LDL Cholesterol, Calculated 23 mg/dl; Magnesium 2.1 mg/dl (1.6-2.3); Potassium 3.3 mmol/L (3.5-5.1); Sodium 139 mmol/L (135-145); Total Cholesterol 67 mg/dl (50-199); Triglyceride 79 mg/dl (10-149); Very Low Density Lipoprotein 15 mg/dl (0-30); eGFR 54.19
[2024-07-18 07:19] LABS: TSH Reflex To Free T4 1.14 uIU/ml (0.47-4.68)
[2024-07-18] MEDS: PROTONIX 40 MG PO (07:27)
[2024-07-18] MEDS: THERAGRAN 1 TABLET PO (07:27)
[2024-07-18] MEDS: ELIQUIS 2.5 MG PO ×2 (07:27→20:54)
[2024-07-18] MEDS: TOPROL XL 25 MG PO ×2 (07:27→20:53)
[2024-07-18] MEDS: FEOSOL 325 MG PO (07:27)
[2024-07-18] MEDS: VITAMIN D3 (cholecalciferol) 25 MCG PO (07:27)
[2024-07-18] MEDS: FARXIGA 10 MG PO (07:27)
[2024-07-18] MEDS: COLACE 100 MG PO (07:27)
[2024-07-18] MEDS: OSCAL 500 + D 500 MG PO ×2 (07:27→20:54)
[2024-07-18] MEDS: LASIX 40 MG IV ×2 (07:28→16:28)
[2024-07-18] MEDS: KCL 20 MEQ PO ×2 (07:28→12:53)
[2024-07-18] MEDS: PACERONE 200 MG PO (07:28)
--- NOTE | 2024-07-18 08:19 | CHAP ---
Message received regarding receiving communion: currently only distributed on Sundays, but I will make a note of the request and explain to patient.
[2024-07-18] MEDS: SPIRIVA RESPIMAT 2.5 MCG INH (08:49)
[2024-07-18 09:37] LABS: Body Fluid pH 7.51
[2024-07-18 09:47] LABS: Body Fluid Amylase < 30 U/L; Body Fluid Glucose 83 mg/dl; Body Fluid LDH 109 U/L; Body Fluid Protein < 2.0 g/dl; Body Fluid Triglycerides < 30 mg/dl
--- NOTE | 2024-07-18 09:57 | W.PN.HOSP.TC ---
Today's Communication/Plan
-
continue IV Lasix; Echo
PT/OT
follow Cards recs
Assessment / Plan
Assessment / Plan
Assessment:
Acute on chronic HFpEF
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
- IV Lasix - requires intensive monitoring of I/OS, lytes
- Cardiology following
- Echo pending
L sided pleural effusion
- s/p thoracentesis 07/18; 550 cc removed
acute UTI
- continue Rocephin, day 2 until culture results
Generalized weakness suspect in setting of acute CHF and UTI
- PT/OT pending
Persistent A.fib/atypical flutter/tach
- continue Eliquis
- continue Amiodarone/BB
hx of CAD s/p CABG
Essential HTN
- continue BP meds
T2DM
- continue Jardiance
- SSI and accu-checks
HLD - statin
Fusiform infrarenal abdominal aortic aneurysm (4.9 cm diameter)
DVT ppx: Eliquis
Code: Full
Anticipated Discharge: > 48 hours
Subjective/Interval History
-
Date of Service: July 18, 2024
resting comfortably, no complaints at present
Objective Data
-
Labs:
Laboratory Results
07/17/24 07/18/24
22:38 05:35
WBC 8.5
Hgb 11.9 L
Hct 38.5 39.4
Plt Count 156
Sodium 139
Potassium 3.3 L
Chloride 98
Carbon Dioxide 34 H
BUN 23 H
Creatinine 1.0
Glucose 106 H 77
Calcium 8.1 L
Vital Signs:
Vital Signs
Temp Pulse Resp BP Pulse Ox
97.9 F 86 19 115/57 93
07/18/24 08:22 07/18/24 09:17 07/18/24 09:17 07/18/24 09:17 07/18/24 08:22
I&O
07/17/24 07/18/24 07/19/24
06:59 06:59 06:59
Output Total 750 / 750
Balance -750 / -750
Physical Exam
-
General: No Apparent Distress
HEENT: Normocephalic and Atraumatic
Respiratory: Negative Wheezes
Cardiac: Regular Rhythm and S1/S2
GI: Soft and Nontender
Genito-urinary: No Costovertebral Tender
Musculoskeletal: Edema, Right Lower Extrem and Edema, Left Lower Extrem
Neuro: AO x 3
Psych: Calm
Data Reviewed
-
Total Time Spent with Patient (in minutes): 51
Labs: Labs Reviewed by me
[2024-07-18 10:30] LABS: Body Fluid Mononuclear 81.7 %; Body Fluid Polymorphonuclear 18.3 %; Body Fluid WBC 290 /CUMM
[2024-07-18 10:45] LABS: Body Fluid Second Tech CMB
--- NOTE | 2024-07-18 11:08 | W.PN.CARDCBS ---
Addendum entered and electronically signed by Lindsay Duff DO 07/18/24 17:24:
I saw and examined the patient.
The Personnel Specialist's note was reviewed and I agree with the note.
Comment: Patient was seen and examined with cardiac PA.Overall states that she is feeling better now status post left thoracentesis with removal of 550 cc clear pleural fluid. She reports less shortness of breath but does feel fatigued. No chest
pain or pressure.An echocardiogram is planned later today.
GEN: NAD, RA
LUNGS: Bronchovesicular breath sounds, decreased at the bases but clear
CV: Irregularly irregular. Positive S1-S2. 06/13SM
ABD: soft, NT/ND + BS
EXT: +1 B/L LE edema.
Plan:
Acute on chronic heart failure with preserved ejection fraction with recurrent left-sided pleural effusion and known moderate to severe mitral regurgitation
-proBNP 07/08 3660; 07/17 3010
-Overall volume appears improved with IV Lasix as well as thoracentesis which removed 550 cc earlier today
-Question the accuracy of recorded weights
-Continue IV Lasix
-Echocardiogram planned but not yet completed to readdress mitral regurgitation
-Nursing to provide instructions on incentive spirometry
-Goal-directed medical therapy limited by lower blood pressures. Continue metoprolol. Continue Farxiga
Persistent atrial arrhythmias currently in atrial fibrillation
-Continue with rate control strategy during this hospitalization.
-Patient has paroxysmal atrial fibrillation and was in sinus rhythm back in March in the office when seen by EP. Ablation was discussed but at that time not pursued
-Would continue amiodarone in addition to metoprolol
-Continue anticoagulation
-TSH within normal limits
-Hemoglobin on anticoagulation stable, today 11.9 g/dL
History of coronary artery disease status post remote CABG in 1997
-No chest pain suggestive of angina
-Cardiac troponins not significantly abnormal
-Continue medical therapy: Atorvastatin, beta-shyanne
-Lipid profile 07/18/2024: Total cholesterol 67, triglycerides 79, LDL 23, HDL 29.
UTI�Per primary
Original Note:
Today's Communication / Plan
-
Cont Lasix 40 mg IV BID
Appetite improving with initial diruesis
Impression / Plan
-
PCP: Dr. Townsend
Cardiology: Dr. CHARLA Kelly
Impression:
Admitted with generalized weakness and acute HF 07/17/24
Acute on chronic HFpEF
LE edema
Weight loss
Moderate-sized left pleural effusion, small right pleural effusion by CXR 07/17/2024
Recent admission for acute HFpEF 05/10/2024 until 05/16/2024
Recent admission for GIB 04/12/2024 until 04/17/2024
Chronic Eliquis OAC
Persistent Afib/atypical flutter/tach
s/p CV 09/07/23, 01/16/24
Chronic amiodarone therapy
Severe MR/TR
Pleural effusion
s/p left sided thoracentesis 09/05/23
re evaluated in IR, not enough fluid for thora 05/10/24
CAD
s/p CABG with AZAR to LAD, SCG to PDA, SVG to OM, SVG to distal OM and DVG to Diag 1997
HTN
h/o orthostasis and syncope 2018
Hyperlipidemia
RBBB
DM 2
Paralyzed left hemidiaphragm
Echo 08/31/23: EF 50-55%, mild conc LVH, enlarged RV size, sev MR, aortic sclerosis without stenosis, sev TR with PAP 50-55 mmHg, no pericardial effusion
Echo 12/08/23: EF 53%, mild concentric LVH, stage II diastolic dysfunction, normal RV size/function, moderate to severe MR, trace aortic regurgitation
Echo 07/18/24: Study pending
Plan:
-Weight is recorded as being up 2 lbs on 07/18/24 despite Lasix 40 mg IV BID. Patient was weighed using bed scale which is not accurate, will order daily weights with standing scale only.
-I&Os not being recorded
-Sitting in chair and comfortable on RA. Also symptomatic improvement in appetite could be due to initial diuresis
-Echo pending
-Cont Toprol XL 25 mg BID
-Cont Jardiance 10 mg daily, changed to Farxiga due to formulary at
-Tele reviewed by me and remains in rate controlled Afib
-Remains in Afib that is persistent at this point. Patient had GIB during 04/12/24 until 04/17/24 admission, but has been back on Eliquis 2.5 mg BID (age 89, Cre 0.9, wt 50.89 kg) since 04/17/24 without recurrent bleeding. Patient had CV 09/07/23 then
recurred with Afib and had another CV 01/16/24. Patient was seen in the office for EP consultation on 03/25/2024 and they discussed ablation, but it was felt that since the patient was largely asymptomatic with her AF that no definitive plans were
made and of note patient was in SR at that time. Patient is still interested in ablation if she is a candidate, but not clear that Afib is driving this clinical picture.
-Cont long-term amiodarone 200 mg daily for adjunct rate control
HPI: [facility] and CHOPRA and is now being admitted with acute HF and cardiology is being consulted. Patient lives with her daughter and son in law, her son in law is Dr. Bowen Townsend. Patient has a h/o CABG in 1997. In
2018 she had CV and amiodarone loading for Afib, then at her Dr. Kelly office visit 08/08/23 she was noted to be in Afib, but denied palpitations, chest pain or SOB. Patient then had CV 09/07/23, but recurred with Afib and had another CV 01/16/24.
Patient was seen in the office for EP consultation on 03/25/2024 and they discussed ablation, but it was felt that since the patient was largely asymptomatic with her AF that no definitive plans were made and of note patient was in SR at that time.
Patient spent time reviewing the material provided to her after the 03/25/2024 OV and had started to decide on her own that she wanted to pursue ablation, but this was sidetracked due to admission for GIB 04/2024 and was in Afib throughout that
admission. Eliquis was eventually restarted and patient was then admitted with acute HF 05/2024 and again was in Afib throughout. Patient was seen in the office 05/20/24 and remained interested in Afib so PA in the office coordinated with EP and
directions were given for PATs and to also schedule another EP office visit given the interval GIB and CHF admissions, but the EP appt was never scheduled by the office. [facility] and appeared to be in acute HF prompting office
visit 07/11/24 and increased Lasix PO dosing. Patient is now lower than previous dry weight and reports she barely eats and has not appetite. She has CHOPRA and feels too weak to move.
Progress Note - Abalone Processor
Subjective
Date of Service: July 18, 2024
More of an appetite
Objective
Labs:
07/18/24 05:35
07/18/24 05:35
Labs
Hgb 11.9 g/dL (12.0-16.0) L 07/18/24 05:35
Hct 39.4 % (37.0-47.0) 07/18/24 05:35
Plt Count 156 10^3/uL (130-400) 07/18/24 05:35
Sodium 139 mmol/L (135-145) 07/18/24 05:35
Potassium 3.3 mmol/L (3.5-5.1) L 07/18/24 05:35
BUN 23 mg/dl (7-17) H 07/18/24 05:35
Creatinine 1.0 mg/dL (0.6-1.0) 07/18/24 05:35
Glucose 77 mg/dl (70-99) 07/18/24 05:35
Troponins
07/17/24
14:28
Troponin I 0.027
Vital Signs and I&O:
Vital Signs
Temp Pulse Resp BP Pulse Ox
97.9 F 86 19 115/57 93
07/18/24 08:22 07/18/24 09:17 07/18/24 09:17 07/18/24 09:17 07/18/24 08:22
Vital Signs
Temp Pulse Resp BP Pulse Ox
97.9 F 86 19 115/57 93
07/18/24 08:22 07/18/24 09:17 07/18/24 09:17 07/18/24 09:17 07/18/24 08:22
Intake & Output
07/16/24 07/17/24 07/18/24 07/19/24
06:59 06:59 06:59 06:59
Output Total 750 / 750
Balance -750 / -750
Physical Exam
Physical Exam
GEN: AAOx3, OOB in chair and eating breakfast
HEENT: EOMI
LUNGS: RA. No audible wheeze
CV: Afib on tele. +2-3 AHSM
ABD: ND
EXT: +1 B/L LE edema.
NEURO: Gross non-focal
SKIN: No rash
--- NOTE | 2024-07-18 15:00 | PN.CDI ---
CDI
- -
CDI:
Physician Documentation Request
Admit Date: 07/17/24 17:04
Dear Doctor Daniel,
Please review the following and provide your response in the progress notes.
Clinical Indicators:
Height: 5f t 8 inches
Weight:110
BMI: 16.7 (07/17)
RD notes report patient is underweight
Please provide an associated diagnosis related to the abnormal BMI, such as:
BMI < or = to 19
Underweight
Weight Loss
Cachectic
Anorexia
- BMI is not significant
- Other
Use of terms such as suspected, likely, concern for, or probable (associated with a specific diagnosis that is being evaluated, monitored, or treated as if it exists) are acceptable and can be coded in the inpatient setting, when documented at the
time of discharge.
Thank you,
Cinda Gabriel RN, BSN
CDI Specialist
tiger text
Please use your independent medical judgment in providing your response.
--- NOTE | 2024-07-18 15:55 | CM ---
Met with patient at bedside; alert and oriented
Pharmacy verified: [facility] @ [address] [facility]
Patient reported she lives with her daughter in a multilevel home; 1 step to enter; railing present; 1st floor bedroom an bath
PLOF; at baseline she reported that she ambulated w/ a Rollator; last 2 weeks she needed a wheelchair; has not been able to get into the shower to bathe for the past 2 weeks
SNF stay in May; could not recall name of facility; Reports she has VN but could not recall agency
Left a voice mail for Daughter to call CM
Transportation to be determined
PT recommends home health VN/PT; need to send referral once agency preference is identified with her daughter
Plan: Discharge to home with home health services when medically stable
[2024-07-18] MEDS: ROCEPHIN 1000 MG IV (16:28)
[2024-07-18] MEDS: STERILE WATER FOR INJECTION 10 ML IV (16:28)
[2024-07-18] MEDS: LIPITOR 40 MG PO (20:54)
[2024-07-19 03:20] VITALS: BP 118/73
[2024-07-19 05:48] VITALS: BMI 16.6
[2024-07-19 06:44] LABS: Hematocrit 36.3 % (37.0-47.0); Hemoglobin 11.3 g/dL (12.0-16.0); Mean Corp Hgb Conc. 31.1 g/dL (33.0-37.0); Mean Corpuscular Hgb 28.6 pg (27.0-31.0); Mean Corpuscular Volume 91.9 fL (81.0-99.0); Mean Platelet Volume 10.5 fL (7.4-10.4); Platelet Count 155 10^3/uL (130-400); Red Blood Cell Count 3.95 10^6/uL (4.20-5.40); Red Cell Dist. Width 28.8 % (11.5-14.5); White Blood Cell Count 5.1 10^3/uL (4.8-10.8)
[2024-07-19 07:05] LABS: Blood Urea Nitrogen 27 mg/dl (7-17); Carbon Dioxide 37 mmol/L (22-30); Chloride 96 mmol/L (98-107); Estimated Creatinine Clearance 30 ml/min; Glucose 113 mg/dl (70-99); Potassium 3.4 mmol/L (3.5-5.1); Sodium 139 mmol/L (135-145); eGFR 54.19
[2024-07-19 07:25] VITALS: BP 113/65
[2024-07-19] MEDS: SPIRIVA RESPIMAT 2.5 MCG 2 PUFF INH (07:27)
--- NOTE | 2024-07-19 08:23 | W.PN.HOSP.TC ---
Today's Communication/Plan
-
likely dc in 24 hours on oral antibiotics and completion UTI tx
VN ordered
Assessment / Plan
Assessment / Plan
Assessment:
Acute on chronic HFpEF
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
- IV Lasix - requires intensive monitoring of I/OS, lytes
- Cardiology following
- Echo 07/18/24: EF 60-65%, mild cLVH, MAC with severe MR, trace AR, severe TR, estimated PAP 45 mmHg
L sided pleural effusion
- s/p thoracentesis 07/18; 550 cc removed
acute Klebsiella UTI
- continue Rocephin, day 07/10
Generalized weakness suspect in setting of acute CHF and UTI
- PT/OT - home VN at discharge
Persistent A.fib/atypical flutter/tach
- continue Eliquis
- continue Amiodarone/BB
hx of CAD s/p CABG
Essential HTN
- continue BP meds
T2DM
- continue Jardiance
- SSI and accu-checks
HLD - statin
Fusiform infrarenal abdominal aortic aneurysm (4.9 cm diameter)
Underweight status
DVT ppx: Eliquis
Code: Full
Anticipated Discharge: Within 24 hours
Subjective/Interval History
-
Date of Service: July 19, 2024
denies any SOB
Objective Data
-
Labs:
Laboratory Results
07/19/24
05:39
WBC 5.1
Hgb 11.3 L
Hct 36.3 L
Plt Count 155
Sodium 139
Potassium 3.4 L
Chloride 96 L
Carbon Dioxide 37 H
BUN 27 H
Creatinine 1.0
Glucose 113 H
Calcium 8.0 L
Vital Signs:
Vital Signs
Temp Pulse Resp BP Pulse Ox
97.9 F 68 16 118/73 93
07/19/24 03:20 07/19/24 07:31 07/19/24 07:31 07/19/24 03:20 07/19/24 07:31
I&O
07/18/24 07/19/24 07/20/24
06:59 06:59 06:59
Intake Total 480 / 480
Output Total 750 / 750
Balance -750 / -750 480 / 480
Physical Exam
-
General: No Apparent Distress
HEENT: Normocephalic and Atraumatic
Respiratory: Negative Wheezes
Cardiac: Regular Rhythm and S1/S2
GI: Soft and Nontender
Genito-urinary: No Costovertebral Tender
Neuro: AO x 3
Hematologic / Lymphatic: No Lymphadenopathy
Psych: Calm
Data Reviewed
-
Total Time Spent with Patient (in minutes): 51
Labs: Labs Reviewed by me
[2024-07-19] MEDS: FEOSOL 325 MG PO (08:58)
[2024-07-19] MEDS: ELIQUIS 2.5 MG PO ×2 (08:58→20:19)
[2024-07-19] MEDS: PROTONIX 40 MG PO (08:58)
[2024-07-19] MEDS: VITAMIN D3 (cholecalciferol) 25 MCG PO (08:58)
[2024-07-19] MEDS: THERAGRAN 1 TABLET PO (08:59)
[2024-07-19] MEDS: KCL 20 MEQ PO (08:59)
[2024-07-19] MEDS: FARXIGA 10 MG PO (08:59)
[2024-07-19] MEDS: PACERONE 200 MG PO (08:59)
[2024-07-19] MEDS: OSCAL 500 + D 500 MG PO ×2 (08:59→20:12)
[2024-07-19] MEDS: TOPROL XL 25 MG PO ×2 (08:59→20:11)
[2024-07-19] MEDS: COLACE 100 MG PO (08:59)
[2024-07-19] MEDS: LASIX 40 MG IV ×2 (09:00→16:37)
[2024-07-19] MEDS: FLUSH (NSS) 1 FLUSH IV ×3 (09:00→16:38)
--- NOTE | 2024-07-19 09:21 | W.PN.CARDCBS ---
Addendum entered and electronically signed by Lindsay Duff DO 07/19/24 13:12:
I saw and examined the patient.
The Distribution Analyst's note was reviewed and I agree with the note.
Comment: Seen and examined lying supine appears comfortable. No events overnight. Only complaint is generalized fatigue.
GEN: NAD, RA, frail appearing
LUNGS: Bronchovesicular breath sounds, decreased at the bases but clear
CV: Irregularly irregular. Positive S1-S2. 2/SM
ABD: soft, NT/ND + BS
EXT: +1 B/L LE edema.
Plan:
Acute on chronic heart failure with preserved ejection fraction with recurrent left-sided pleural effusion and known moderate to severe mitral regurgitation
-proBNP 07/08 3660; 07/17 3010
-Overall volume appears improved with IV Lasix as well as thoracentesis which removed 550 cc earlier today
-Question the accuracy of recorded weights
-Continue IV Lasix another 24 hours and transition to oral Lasix 60 mg daily [had been on 20 mg daily at time of admission]
-Nursing to provide instructions on incentive spirometry
-Goal-directed medical therapy limited by lower blood pressures. Continue metoprolol. Continue Farxiga
-Repeat echocardiogram with preserved ejection fraction with severely dilated left atrium and severe mitral regurgitation. Discussed valvular disease with patient, daughter over the phone and primary state auditor and possibility of pursuing
MitraClip evaluation. Family and patient to have further conversation later today.
Persistent atrial arrhythmias currently in atrial fibrillation
-Continue with rate control strategy during this hospitalization.
-Patient has paroxysmal atrial fibrillation and was in sinus rhythm back in March in the office when seen by EP. Ablation was discussed but at that time not pursued
-Would continue amiodarone in addition to metoprolol
-Continue anticoagulation
-TSH within normal limits
-Hemoglobin on anticoagulation stable, today 11.3g/dL
History of coronary artery disease status post remote CABG in 1997
-No chest pain suggestive of angina
-Cardiac troponins not significantly abnormal
-Continue medical therapy: Atorvastatin, beta-shyanne
-Lipid profile 07/18/2024: Total cholesterol 67, triglycerides 79, LDL 23, HDL 29.
UTI�Per primary
PT/OT evaluation
Discharge planning
Original Note:
Today's Communication / Plan
-
Continue Iv lasix
Continue Eliquis, Toprol, and amiodarone
Impression / Plan
-
PCP: Dr. Townsend
Cardiology: Dr. CHARLA Kelly
Impression:
Admitted with generalized weakness and acute HF 07/17/24
Acute on chronic HFpEF
LE edema
Weight loss
Moderate-sized left pleural effusion, small right pleural effusion by CXR 07/17/2024
Recent admission for acute HFpEF 05/10/2024 until 05/16/2024
Recent admission for GIB 04/12/2024 until 04/17/2024
Chronic Eliquis OAC
Persistent Afib/atypical flutter/tach
s/p CV 09/07/23, 01/16/24
Chronic amiodarone therapy
Severe MR/TR
Pleural effusion
s/p left sided thoracentesis 09/05/23
re evaluated in IR, not enough fluid for thora 05/10/24
s/p L thoracentesis, 550 cc removed 07/18/2024
CAD
s/p CABG with AZAR to LAD, SCG to PDA, SVG to OM, SVG to distal OM and DVG to Diag 1997
HTN
h/o orthostasis and syncope 2018
Hyperlipidemia
RBBB
DM 2
Paralyzed left hemidiaphragm
Echo 08/31/23: EF 50-55%, mild conc LVH, enlarged RV size, sev MR, aortic sclerosis without stenosis, sev TR with PAP 50-55 mmHg, no pericardial effusion
Echo 12/08/23: EF 53%, mild concentric LVH, stage II diastolic dysfunction, normal RV size/function, moderate to severe MR, trace aortic regurgitation
Echo 07/18/24: EF 60-65%, mild cLVH, MAC with severe MR, trace AR, severe TR, estimated PAP 45 mmHg
Plan:
-Presented with weakness and CHOPRA. Admitted with acute heart failure exacerbation.
-Diuresing with IV lasix 40mg BID. Weight down 3lbs overnight, down to 109 lbs 07/19.
-Patient reports some improvement in her symptoms and slept well. Still w/ LE edema and LUE edema.
-Creat stable at 1.0.
-Continue daily weights, I&Os.
-Echo 07/18 showed preserved EF with severe MR as noted above.
-Remains in persistent atrial fibrillation. HRs overall stable. Cont Toprol XL 25 mg BID and amiodarone 200mg daily
-Continue Eliquis 2.5mg BID. Patient had GIB during 04/12/24 until 04/17/24 admission, but has been back on Eliquis 2.5 mg BID (age 89, Cre 0.9, wt 50.89 kg) since 04/17/24 without recurrent bleeding.
-Follow up arranged w/ primary state auditor.
HPI: Patient [facility] today with weakness and CHOPRA and is now being admitted with acute HF and cardiology is being consulted. Patient lives with her daughter and son in law, her son in law is Dr. Bowen Townsend. Patient has a h/o CABG in 1997. In
2018 she had CV and amiodarone loading for Afib, then at her Dr. Kelly office visit 08/08/23 she was noted to be in Afib, but denied palpitations, chest pain or SOB. Patient then had CV 09/07/23, but recurred with Afib and had another CV 01/16/24.
Patient was seen in the office for EP consultation on 03/25/2024 and they discussed ablation, but it was felt that since the patient was largely asymptomatic with her AF that no definitive plans were made and of note patient was in SR at that time.
Patient spent time reviewing the material provided to her after the 03/25/2024 OV and had started to decide on her own that she wanted to pursue ablation, but this was sidetracked due to admission for GIB 04/2024 and was in Afib throughout that
admission. Eliquis was eventually restarted and patient was then admitted with acute HF 05/2024 and again was in Afib throughout. Patient was seen in the office 05/20/24 and remained interested in Afib so PA in the office coordinated with EP and
directions were given for PATs and to also schedule another EP office visit given the interval GIB and CHF admissions, but the EP appt was never scheduled by the office. Patient was at [facility] last week and appeared to be in acute HF prompting office
visit 07/11/24 and increased Lasix PO dosing. Patient is now lower than previous dry weight and reports she barely eats and has not appetite. She has CHOPRA and feels too weak to move.//
Progress Note - Brickmason Helper
Subjective
Date of Service: July 19, 2024
Feeling well. No complaints this AM while resting in bed.
Objective
Labs:
07/19/24 05:39
07/19/24 05:39
Labs
Hgb 11.3 g/dL (12.0-16.0) L 07/19/24 05:39
Hct 36.3 % (37.0-47.0) L 07/19/24 05:39
Plt Count 155 10^3/uL (130-400) 07/19/24 05:39
Sodium 139 mmol/L (135-145) 07/19/24 05:39
Potassium 3.4 mmol/L (3.5-5.1) L 07/19/24 05:39
BUN 27 mg/dl (7-17) H 07/19/24 05:39
Creatinine 1.0 mg/dL (0.6-1.0) 07/19/24 05:39
Glucose 113 mg/dl (70-99) H 07/19/24 05:39
Troponins
07/17/24
14:28
Troponin I 0.027
Vital Signs and I&O:
Vital Signs
Temp Pulse Resp BP Pulse Ox
98.0 F 88 16 113/65 93
07/19/24 07:25 07/19/24 09:00 07/19/24 07:31 07/19/24 09:00 07/19/24 08:49
Vital Signs
Temp Pulse Resp BP Pulse Ox
98.0 F 88 16 113/65 93
07/19/24 07:25 07/19/24 09:00 07/19/24 07:31 07/19/24 09:00 07/19/24 08:49
Intake & Output
07/17/24 07/18/24 07/19/24 07/20/24
06:59 06:59 06:59 06:59
Intake Total 480 / 480
Output Total 750 / 750
Balance -750 / -750 480 / 480
Physical Exam
Physical Exam
GEN: AAOx3, NAD
HEENT: EOMI
LUNGS: CTA b/l, no wheezes
CV: irregularly irregular. +2-3 AHSM
EXT: +1 B/L LE edema.
NEURO: Gross non-focal
SKIN: No rash
[2024-07-19 11:06] VITALS: BMI 16.6
[2024-07-19 11:29] VITALS: BP 116/72
[2024-07-19] MEDS: STERILE WATER FOR INJECTION 10 ML IV (14:17)
[2024-07-19] MEDS: ROCEPHIN 1000 MG IV (14:18)
[2024-07-19 15:24] VITALS: BP 108/66
--- NOTE | 2024-07-19 15:42 | PTCARENOTE ---
Pt AAO x3, SANDOVAL well, OOB to chair/BSC with assist x1; pt very unsteady with transferring; fall prec maintained. VSS. Telemetry:A-fib. On room air- pulse ox 95%, no SOB noted. Abd soft, rounded, maximiliano PO well. Incont urine; voids on BSC at times.
Purewick cath currently in place; draining large amts clear pete urine. Resting comfortably in bed at present. Will continue to monitor.
[2024-07-19 19:23] VITALS: BP 112/69
[2024-07-19 20:00] VITALS: BMI 16.6
[2024-07-19] MEDS: ELIQUIS PO (20:12)
[2024-07-19] MEDS: LIPITOR 40 MG PO (20:12)
[2024-07-19 23:40] VITALS: BP 115/72
[2024-07-20 03:32] VITALS: BP 103/66
[2024-07-20 06:00] VITALS: BMI 16.2
[2024-07-20 06:33] LABS: Hematocrit 37.4 % (37.0-47.0); Hemoglobin 11.1 g/dL (12.0-16.0); Mean Corp Hgb Conc. 29.7 g/dL (33.0-37.0); Mean Corpuscular Hgb 27.4 pg (27.0-31.0); Mean Corpuscular Volume 92.3 fL (81.0-99.0); Mean Platelet Volume 9.7 fL (7.4-10.4); Platelet Count 159 10^3/uL (130-400); Red Blood Cell Count 4.05 10^6/uL (4.20-5.40); White Blood Cell Count 4.8 10^3/uL (4.8-10.8)
[2024-07-20 06:52] LABS: Blood Urea Nitrogen 23 mg/dl (7-17); Calcium 7.8 mg/dl (8.4-10.2); Chloride 96 mmol/L (98-107); Estimated Creatinine Clearance 33 ml/min; Glucose 108 mg/dl (70-99); Sodium 139 mmol/L (135-145); eGFR > 60.00
[2024-07-20 07:03] LABS: Carbon Dioxide 34 mmol/L (22-30)
[2024-07-20 07:20] VITALS: BP 111/71
[2024-07-20] MEDS: SPIRIVA RESPIMAT 2.5 MCG 2 PUFF INH (07:40)
--- NOTE | 2024-07-20 08:58 | W.PN.CARDCBS ---
Today's Communication / Plan
-
transition to oral lasix 60 mg daily
stable for DC
Impression / Plan
-
PCP: Dr. Townsend
Cardiology: Dr. CHARLA Kelly
Impression:
Admitted with generalized weakness and acute HF 07/17/24
Acute on chronic HFpEF
LE edema
Weight loss
Moderate-sized left pleural effusion, small right pleural effusion by CXR 07/17/2024
Recent admission for acute HFpEF 05/10/2024 until 05/16/2024
Recent admission for GIB 04/12/2024 until 04/17/2024
Chronic Eliquis OAC
Persistent Afib/atypical flutter/tach
s/p CV 09/07/23, 01/16/24
Chronic amiodarone therapy
Severe MR/TR
Pleural effusion
s/p left sided thoracentesis 09/05/23
re evaluated in IR, not enough fluid for thora 05/10/24
s/p L thoracentesis, 550 cc removed 07/18/2024
CAD
s/p CABG with AZAR to LAD, SCG to PDA, SVG to OM, SVG to distal OM and DVG to Diag 1997
HTN
h/o orthostasis and syncope 2018
Hyperlipidemia
RBBB
DM 2
Paralyzed left hemidiaphragm
Echo 08/31/23: EF 50-55%, mild conc LVH, enlarged RV size, sev MR, aortic sclerosis without stenosis, sev TR with PAP 50-55 mmHg, no pericardial effusion
Echo 12/08/23: EF 53%, mild concentric LVH, stage II diastolic dysfunction, normal RV size/function, moderate to severe MR, trace aortic regurgitation
Echo 07/18/24: EF 60-65%, mild cLVH, MAC with severe MR, trace AR, severe TR, estimated PAP 45 mmHg
Plan:
Presented with weakness and CHOPRA. Admitted with acute heart failure exacerbation, HFpEF
We have been diuresing with IV lasix 40mg BID and has clinically improved
Weight down 3lbs over her first 24 hours and then -3 pounds again overnight, overall weight is down 6 pounds with diuresis and fluid balance remains negative
She is hypokalemic with potassium of 3. BUN and creatinine is 23 and 0.9.
Transition back to oral Lasix. Had been on 20 mg of Lasix orally as an outpatient, agree with increasing outpatient oral Lasix dosing at 60 mg daily
Replete potassium (ordered today by primary service). Goal potassium between 4 and 5 and goal magnesium between 2 and 3
Maintain the dapagliflozin 10 mg daily
Maintain metoprolol succinate 25 mg twice daily
Regarding persistent atrial fibrillation/atrial flutter she is rate controlled
She is clinically improved and is planned for discharge. If she remains in atrial tachycardia/atrial fibrillation consider outpatient cardioversion (last CV 01/29)
Maintain amiodarone 200 mg daily
Maintain metoprolol succinate 25 mg twice daily
Maintain Eliquis 2.5 mg twice daily for atrial fibrillation related thromboembolic risk reduction (dose adjusted based on age and weight)
Follow up arranged w/ primary rotary engraver.
Total time spent today was 51 minutes in preparing to see the patient, seeing the patient and coordination of care. This included review of recent laboratory evaluations, cardiact testing, imaging studies, primary care rtecords, specialty
consultations, hospital records, as well as personally interviewing and examining the patient, which included discussion of their tests, review/ordering medications, and communicating with other healthcare professionals and also treatment planning
as well as counseling.
HPI: [facility] today with weakness and CHOPRA and is now being admitted with acute HF and cardiology is being consulted. Patient lives with her daughter and son in law, her son in law is Dr. Bowen Townsend. Patient has a h/o CABG in 1997. In
2018 she had CV and amiodarone loading for Afib, then at her Dr. Kelly office visit 08/08/23 she was noted to be in Afib, but denied palpitations, chest pain or SOB. Patient then had CV 09/07/23, but recurred with Afib and had another CV 01/16/24.
Patient was seen in the office for EP consultation on 03/25/2024 and they discussed ablation, but it was felt that since the patient was largely asymptomatic with her AF that no definitive plans were made and of note patient was in SR at that time.
Patient spent time reviewing the material provided to her after the 03/25/2024 OV and had started to decide on her own that she wanted to pursue ablation, but this was sidetracked due to admission for GIB 04/2024 and was in Afib throughout that
admission. Eliquis was eventually restarted and patient was then admitted with acute HF 05/2024 and again was in Afib throughout. Patient was seen in the office 05/20/24 and remained interested in Afib so PA in the office coordinated with EP and
directions were given for PATs and to also schedule another EP office visit given the interval GIB and CHF admissions, but the EP appt was never scheduled by the office. Patient was at PATs last week and appeared to be in acute HF prompting office
visit 07/11/24 and increased Lasix PO dosing. Patient is now lower than previous dry weight and reports she barely eats and has not appetite. She has CHOPRA and feels too weak to move.//
Progress Note - Research Test Engine Operator
Subjective
Date of Service: July 20, 2024
Total Time Spent with Patient (in minutes): no CP or SOB
Objective
Labs:
07/20/24 05:44
07/20/24 05:44
Labs
Hgb 11.1 g/dL (12.0-16.0) L 07/20/24 05:44
Hct 37.4 % (37.0-47.0) 07/20/24 05:44
Plt Count 159 10^3/uL (130-400) 07/20/24 05:44
Sodium 139 mmol/L (135-145) 07/20/24 05:44
Potassium 3.0 mmol/L (3.5-5.1) L 07/20/24 05:44
BUN 23 mg/dl (7-17) H 07/20/24 05:44
Creatinine 0.9 mg/dL (0.6-1.0) 07/20/24 05:44
Glucose 108 mg/dl (70-99) H 07/20/24 05:44
Troponins
07/17/24
14:28
Troponin I 0.027
Vital Signs and I&O:
Vital Signs
Temp Pulse Resp BP Pulse Ox
98.1 F 86 16 111/71 93
07/20/24 07:20 07/20/24 07:44 07/20/24 07:44 07/20/24 07:20 07/20/24 07:44
Vital Signs
Temp Pulse Resp BP Pulse Ox
98.1 F 86 16 111/71 93
07/20/24 07:20 07/20/24 07:44 07/20/24 07:44 07/20/24 07:20 07/20/24 07:44
Intake & Output
07/18/24 07/19/24 07/20/24 07/21/24
06:59 06:59 06:59 06:59
Intake Total 480 / 480 640 / 640
Output Total 750 / 750 950 / 950
Balance -750 / -750 480 / 480 -310 / -310
Physical Exam
Physical Exam
well appearing
GEN: AAOx3, NAD
HEENT: EOMI
LUNGS: CTA b/l, no wheezes
CV: irregularly irregular. +2-3 AHSM
EXT: +1 B/L LE edema.
NEURO: Gross non-focal
SKIN: No rash
[2024-07-20] MEDS: LASIX IV (09:15)
[2024-07-20] MEDS: COLACE 100 MG PO (09:15)
[2024-07-20] MEDS: THERAGRAN 1 TABLET PO (09:16)
[2024-07-20] MEDS: KCL 20 MEQ PO ×2 (09:16)
[2024-07-20] MEDS: FEOSOL 325 MG PO (09:16)
[2024-07-20] MEDS: OSCAL 500 + D 500 MG PO (09:16)
[2024-07-20] MEDS: PACERONE 200 MG PO (09:16)
[2024-07-20] MEDS: LASIX 60 MG PO (09:16)
[2024-07-20] MEDS: PROTONIX 40 MG PO (09:16)
[2024-07-20] MEDS: VITAMIN D3 (cholecalciferol) 25 MCG PO (09:16)
[2024-07-20] MEDS: ELIQUIS 2.5 MG PO (09:16)
[2024-07-20] MEDS: FARXIGA 10 MG PO (09:16)
[2024-07-20] MEDS: TOPROL XL 25 MG PO (09:16)
--- NOTE | 2024-07-20 09:20 | W.PN.HOSP.TC ---
Today's Communication/Plan
-
dc to home vn
Assessment / Plan
Assessment / Plan
Assessment:
Acute on chronic HFpEF
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
- transition to oral Lasix + BID potassium at dc
- Cardiology following
- Echo 07/18/24: EF 60-65%, mild cLVH, MAC with severe MR, trace AR, severe TR, estimated PAP 45 mmHg
- patient has refused Livia-clip intervention per daughter
L sided pleural effusion
- s/p thoracentesis 07/18; 550 cc removed
acute Klebsiella UTI
- continue Rocephin, day 08/10
Generalized weakness suspect in setting of acute CHF and UTI
- PT/OT - home VN at discharge
Persistent A.fib/atypical flutter/tach
- continue Eliquis
- continue Amiodarone/BB
hx of CAD s/p CABG
Essential HTN
- continue BP meds
T2DM
- continue Jardiance
- SSI and accu-checks
HLD - statin
Fusiform infrarenal abdominal aortic aneurysm (4.9 cm diameter)
Underweight status
DVT ppx: Eliquis
Code: Full
More than 30 minutes spent in discharge including
Final examination of the patient
Summarizing hospital stay
Instructions for continuing care to all relevant caregivers
Preparation of discharge records, prescriptions, and referral forms
Total time spent (in minutes): 41
Anticipated Discharge: Today
Subjective/Interval History
-
Date of Service: July 20, 2024
denies any complaints at present
Objective Data
-
Labs:
Laboratory Results
07/20/24
05:44
WBC 4.8
Hgb 11.1 L
Hct 37.4
Plt Count 159
Sodium 139
Potassium 3.0 L
Chloride 96 L
Carbon Dioxide 34 H
BUN 23 H
Creatinine 0.9
Glucose 108 H
Calcium 7.8 L
Vital Signs:
Vital Signs
Temp Pulse Resp BP Pulse Ox
98.1 F 86 16 111/71 93
07/20/24 07:20 07/20/24 07:44 07/20/24 07:44 07/20/24 07:20 07/20/24 07:44
I&O
07/19/24 07/20/24 07/21/24
06:59 06:59 06:59
Intake Total 480 / 480 640 / 640
Output Total 950 / 950
Balance 480 / 480 -310 / -310
Physical Exam
-
General: No Apparent Distress
HEENT: Normocephalic and Atraumatic
Respiratory: Negative Wheezes
Cardiac: Regular Rhythm and S1/S2
GI: Soft and Nontender
Musculoskeletal: No Edema
Neuro: AO x 3
Psych: Calm
Data Reviewed
-
Total Time Spent with Patient (in minutes): 41
Labs: Labs Reviewed by me
--- NOTE | 2024-07-20 09:38 | W.DS.TRANS ---
DC Summary - Tax Associate
-
Discharge Instructions:
Sleep Apnea Risk Low
Discharge Diagnosis/Procedures acute congestive heart failure, severe mitral
regurgitation
Diet Restrict fluids to 48 oz,2 Gram Sodium,Low
Cholesterol
Activity As tolerated
Blood Work repeat BMP in 1 week - script given
Other Services VN
Instructions: *[facility] Heart Failure Instructions
Stand-Alone Forms:
Changes to Home Medications: Yes
Discharge Medications:
DC Medications w/original date entered in [facility]
atorvastatin 40 mg tablet 40 mg PO HS High Cholesterol 09/04/23
cholecalciferol (vitamin D3) 25 mcg (1,000 unit) tablet 25 mcg PO DAILY Supplement 09/04/23
rabeprazole 20 mg tablet,delayed release 20 mg PO DAILY Gastrointestinal Issue 09/04/23
tiotropium bromide 18 mcg capsule with inhalation device (Spiriva with HandiHaler) 1 cap inhalation R DAILY Lung/Breathing Issues 09/04/23
amiodarone 200 mg tablet 200 mg PO DAILY afib 01/16/24
empagliflozin 10 mg tablet (Jardiance) 10 mg PO DAILY Heart Failure 01/16/24
apixaban 2.5 mg tablet (Eliquis) 2.5 mg PO BID afib 04/12/24
docusate sodium 100 mg capsule (Stool Softener) 100 mg PO DAILY Constipation 04/12/24
therapeutic multivitamin 1 tab PO DAILY Supplement 04/12/24
metoprolol succinate 50 mg tablet,extended release 24 hr 25 mg PO BID Blood Pressure 05/10/24
calcium 600 mg (as carbonate)-vitamin D3 20 mcg (800 unit) tablet 1 tab PO BID Supplement 07/17/24
ferrous sulfate 134 mg (27 mg iron) tablet 134 mg PO DAILY Supplement 07/17/24
cefdinir 300 mg capsule 300 mg PO Q12 #3 caps 07/20/24
furosemide 20 mg tablet 60 mg (3 x 20 mg) PO DAILY #90 tabs 07/20/24
potassium chloride 20 mEq tablet,extended release 20 meq PO BID Supplement #60 tabs 07/20/24
Home Medication Changes
LAsix to 60 and KCL to BID
Pending Results: No
Total time spent discharging patient (in min): 41
[2024-07-20 11:10] VITALS: BP 103/59
[2024-07-20] MEDS: OMNICEF 300 MG PO (11:10)
--- NOTE | 2024-07-20 12:26 | CM ---
CM following re: discharge planning.
Reviewed pt's chart, met with pt and spoke to pt's daughter Kamini over the phone.
Discharge order noted. Both pt and her daughter are aware, expressed their agreement with discharge. IMM reviewed, placed on chart, pt has a copy.
Pt's daughter stated she will transport her mother home at 5:00 p.m.
PT and OT evaluations noted - home PT/OT recommended. .
Pt's daughter stated that pt had [facility] in the past and she fired [facility]. A list of VN vendors discussed with pt's daughter. Pt's daughter preferred [facility]. A referral to VN made.
Please fax discharge instructions to [facility] at [phone].
D/C plan: home with [facility] and family support. Daughter to transport at 5:00 p.m.
[2024-07-20 15:20] VITALS: BP 102/64
--- NOTE | 2024-07-20 17:48 | PTCARENOTE ---
IV discontinued. Tele pack removed. Discharge paperwork printed and reviewed with patient and her daughter who verbalized understanding. Pt transported off the floor via wheelchair with all belongings from the room accompanied by PCT.
--- NOTE | 2024-07-22 10:45 | W.HF.CON ---
Heart Failure
- LV Function
Left ventricular function study result: LV Ejection fraction >/= 50%
Ejection Fraction Percentage: 60-65
- ARNI
Patient already on ARNI: No
Heart Failure ARNI Not Indicated: LV Ejection Fraction >/= 40%
- ACEI/ARB
Patient already on ACEI/ARB: No
Heart Failure ACEI/ARB Not Indicated: LV Ejection Fraction > 40%
- Beta Betsy
Patient already on Evidence Based Beta Betsy: Yes
- Mineralocorticord Receptor Antagonist
Heart Failure MRA Not Indicated: LV Ejection Fraction > 40%
- SGLT-2 Inhibitor
Patient already on SGLT-2 Inhibitor: Yes
- Afib Anticoagulation
Patient already on Anticoagulation for Afib: Yes
- NYHA CHF Classification
NYHA CHF Classification Level: Class III - Symptoms w/ min exertion, interferes w/ nml daily activity
- ACC/AHA Stage
ACC/AHA Stage: Stage C: Symptomatic Heart Failure
== END 2024-07-20 17:42 | disposition home health service (06) | DRG 291 ==
LOC: 4 EAST ACU 17:04
PROVIDERS: Physician Assistant Medical; Radiology Vascular & Interventional Radiology; Registered Nurse; ADMITTING PHYSICIAN Internal Medicine; CONSULT PHYSICIAN Internal Medicine Cardiovascular Disease; EMERGENCY PHYSICIAN Emergency Medicine; FAMILY PHYSICIAN Internal Medicine
PROC: 0W9B3ZZ Drainage of Left Pleural Cavity, Percutaneous Approach (ICD-10-PCS; 2024-07-18)
DX: I11.0 Hypertensive heart disease with heart failure (principal); I50.33 Acute on chronic diastolic (congestive) heart failure; I48.21 Permanent atrial fibrillation; N39.0 Urinary tract infection, site not specified; Z68.1 Body mass index [BMI] 19.9 or less, adult; I48.4 Atypical atrial flutter; J91.8 Pleural effusion in other conditions classified elsewhere; Z66 Do not resuscitate; I25.10 Atherosclerotic heart disease of native coronary artery without angina pectoris; E11.9 Type 2 diabetes mellitus without complications; E78.00 Pure hypercholesterolemia, unspecified; D63.8 Anemia in other chronic diseases classified elsewhere; I71.43 Infrarenal abdominal aortic aneurysm, without rupture; J43.9 Emphysema, unspecified; J44.9 Chronic obstructive pulmonary disease, unspecified; B96.1 Klebsiella pneumoniae [K. pneumoniae] as the cause of diseases classified elsewhere; K21.9 Gastro-esophageal reflux disease without esophagitis; R63.6 Underweight; I45.10 Unspecified right bundle-branch block; I08.1 Rheumatic disorders of both mitral and tricuspid valves; J98.6 Disorders of diaphragm; I25.2 Old myocardial infarction; Z79.01 Long term (current) use of anticoagulants; Z79.84 Long term (current) use of oral hypoglycemic drugs; Z79.899 Other long term (current) drug therapy; Z95.1 Presence of aortocoronary bypass graft; Z90.12 Acquired absence of left breast and nipple; Z87.891 Personal history of nicotine dependence; Z85.3 Personal history of malignant neoplasm of breast
CPT/HCPCS: 88305; 32555; 71045; 71046; 80048; 80053; 80061; 81003; 81015; 82150; 82945; 82947; 83615; 83735; 83880; 83986; 84155; 84157; 84443; 84478; 84484; 85014; 85025; 85027; 87015; 87070; 87077; 87086; 87102; 87116; 87186; 87205; 87206; 88112; 89051; 93005; 93306; 94640; 96374; 96375; 97163; 97166; 99285